=== PATIENT | female | born 1930 | race African-American/Black ===

== ENCOUNTER 2017-03-03 08:30 | Inpatient (IN) | payer MEDICARE, MEDICAID ==
[2017-03-03] MEDS ORDERED: INSULIN ASPART, RECOMBINANT 100 UNITS/ML SUBQ ONE (08:47)
[2017-03-03] MEDS ORDERED: INSULIN HUMAN REGULAR 100 UNITS/ML UNIT SUBQ ONE (08:47)
[2017-03-03] MEDS ORDERED: Levofloxacin 500mg/100mL 500 MG/100 ML BAG IV ONE ×2 (09:08→10:04)
[2017-03-03 09:18] LABS: MEAN PLATELET VOLUME 12.1 fl
[2017-03-03] MEDS ORDERED: Sodium Chloride 0.9% 1,000 ML IV ONE (09:18)
--- NOTE | 2017-03-03 09:20 | Diagnostic Imaging Report ---
Portable chest x-ray HISTORY: Cough Exam is limited due to patient rotation in a poor inspiration. Allowing for these factors, no definite focal pulmonary parenchymal processes are seen. Heart size is difficult to assess. Atherosclerotic calcification seen within the aorta. IMPRESSION: 1. Allowing for a poor inspiration and patient rotation, no definite focal pulmonary processes 2. Atherosclerotic vascular changes
[2017-03-03 09:21] VITALS: BP 113/62
[2017-03-03 09:23] LABS: EOSINOPHILE ABSOLUTE 0.8 Th/cmm (0.1-0.4); LYMPHOCYTE ABSOLUTE 0.9 Th/cmm (1.5-3.0); MEAN CELL VOLUME 89.7 fl (81-100); MEAN CORPUSCULAR HEMOGLOBIN 25.9 pg (27.0-31.0); MEAN CORPUSCULAR HGB CONC 28.9 pg (28.0-36.0); NEUTROPHILE ABSOLUTE 5.5 Th/cmm (1.8-8.0); RED BLOOD COUNT 2.31 Mil/cmm (3.80-5.20)
[2017-03-03 09:30] LABS: CHOLESTEROL 49 mg/dL (<200); HDL -HIGH DENSITY LIPOPROTEIN 17 mg/dL (23-92); TRIGLYCERIDES 134 mg/dL (<150)
[2017-03-03 09:32] LABS: ALB/GLOB RATIO 0.5 (1.0-1.8); ALBUMIN 2.7 gm/dL (3.7-5.3); BILIRUBIN,DIRECT 0.06 mg/dL (0.0-0.2); BILIRUBIN,TOTAL 0.3 mg/dL (0.3-1.0); TOTAL PROTEIN,SERUM 8.6 gm/dL (6.0-8.3)
[2017-03-03 09:33] LABS: INR 1.13 (0.5-1.4); PROTHROMBIN TIME (TEST) 11.9 SECONDS (9.5-11.5)
[2017-03-03 09:47] LABS: WHITE BLOOD COUNT 10.2 Th/cmm (4.8-10.8)
[2017-03-03 09:48] LABS: HEMATOCRIT 20.7 % (41.0-60); PLATELET COUNT 294 Th/cmm (150-400)
[2017-03-03 09:49] LABS: ANISOCYTOSIS 1+; LYMPHOCYTE 28 % (20-50); MONOCYTE 4 % (2-10); NEUTROPHILS 68 % (40-80); TOTAL CELLS COUNTED 100
[2017-03-03] MEDS ORDERED: Piperacillin Sodium/Tazobact 3.375 gm Vial IV ONE (10:04)
[2017-03-03] MEDS ORDERED: INSULIN HUMAN REGULAR 100 UNITS/ML UNIT ONE (10:05)
--- NOTE | 2017-03-03 10:43 | ER Physician Documentation ---
DATE OF SERVICE: 03/03/2017 EMERGENCY ROOM EVALUATION AND TREATMENT The patient was in station #1 [facility]. She is an 87-year-old patient. Her date of 1930. I am the ER physician on duty today morning. The patient has Medicaid #[id number], Medicare-Medicaid number is [id number], policy number [id number]. The patient's family physician is Dr. Osman Csota, office number is [phone], [address] [place] [address]. The patient has dentist and it communications specialist. I was given the information by the nurse ___. Paramedics informed that the patient was obtunded, not speaking much, said she was not responding, and not answering questions. Her blood sugar was in 600 mg percentage level. No other history is available. The Emergency run team tries to get the EKG, but only 6 leads standard in extremity leads were taken that was uninterpretable. HISTORY OF PRESENT ILLNESS: The patient is a known patient of diabetes mellitus. She lives in a fci. She is essentially bedbound. 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 The patient had no diarrhea or lethargy. She underwent many, many medical studies and further workup showed that she had a partial sigmoid volvulus, which accounted for her symptoms. She underwent colonoscopy and did not show any mass lesions and the patient has diabetes mellitus. She has G-tube placement done and she also had bacteremia. Dr. Tyler Yang know her from [facility] was treating her with Zosyn for infection. At the present time, she was brought for these conditions. The patient was evaluated by the triage nurse and the triage nurse found that the patient has the following vital signs, temperature 97.7, pulse is 104, respirations 23, blood pressure 113/62, oxygen saturation 100%. Height is 5 feet 4 inches, weighing 150 pounds. PAST MEDICAL HISTORY: Positive for Parkinson's disease, hypertension, hypertensive vascular heart disease, vascular dementia, type 2 diabetes mellitus, and contracted status. The patient does not speak. She has coronary artery disease, history of gastrostomy tube, hypothyroidism, as well as a colostomy tube, and CVAs with right hemiplegia, but she is contracted in all the extremities. FAMILY HISTORY: Unobtainable because of the patient's current mental status. REVIEW OF SYSTEMS: Could not be obtainable because of the patient's current mental status. PHYSICAL EXAMINATION: GENERAL: Appears to be lady, 87-year-old looking of the stated age, essentially well built, but poorly nourished. HEENT: Appears to be normal. Eyes appear to be normal. Pupils are equal. Sclerae is anicteric. NECK: Supple, no jugular venous distress. CHEST: Reveals fairly good air entry in both lung anteriorly. Few crackles at both the lung bases are audible. ABDOMEN: Soft, distended, not tender to palpation. The patient has a colostomy tube, G-tube. Bowel sounds are normal. The liver and spleen are not enlarged. No free fluid in the abdominal cavity HEART: Reveals normal heart sounds. No fourth heart sound. Second heart sound physiologically split. CENTRAL NERVOUS SYSTEM: Within normal limits. CLINICAL IMPRESSION: The patient has hyperglycemia with a blood sugar of 600, when our nurse took the blood sugar; it was around 385 or so. The patient was given 16 units of regular insulin and all the lab workups and chest x-ray has been ordered, EKG has been ordered, and blood cultures will be ordered. The patient diagnosis could be patient may be having sepsis infection. Lactic acid level has been ordered. So the final diagnoses clinically is, the patient has probably having sepsis, uncontrolled diabetes mellitus, coronary artery disease, Parkinson's disease, hypertension, hypertensive heart disease, vascular dementia, type 2 diabetes mellitus, history of G-tube, history of colostomy tube, cerebrovascular accident with hemiplegia, and the patient is uncommunicative at the present moment. The patient is a full code. The patient is under the care of Dr. Costa. The patient at that time in the past had leukocytosis, urinary tract infection, Parkinson's disease, etc. The patient has a history of hypothyroidism also. In the past, the patient has megacolon and volvulus that were corrected. The patient could be having dehydration at the present moment and immobility and contracted state. In the past, her BUN and creatinine had been within normal limits. She was found to be dehydrated with sodium of 152 in January of 2017. At that time, the white count was 13.1. Urine culture at that time was growing E. coli with a G-tube site showing Proteus mirabilis, Staphylococcus aureus, and Enterococcus faecalis. A CAT scan of the abdomen and pelvis from January showed megacolon. The patient also underwent a sigmoidectomy in the past as well as colostomy in the past. The patient had a history of encephalopathy in the past, osteoarthritis in the past. The patient has a history of potential for falls, so fall precautions should be taken for this patient. Because of the patient's seriousness of the nature, I would give the patient one dose of Levaquin just to cover for as the patient has any pseudomonas, but otherwise Levaquin can be discontinued if other bugs are detected, which is sensitive to Zosyn and vancomycin. The patient is getting a G-tube feeding and other things and let me see if there is any other diagnosis that I have written for this patient, the patient has other diagnoses, which includes muscle weakness, generalized, in the past the patient had urinary tract infection, atherosclerotic heart disease with [place] coronary artery disease without angina pectoris, and unspecified dysphagia was noted in this patient. This is the first part of the report, the second part will be mentioned once we get all the labs and other things, and I will dictate this report. This is dictated at 2108. JOB# [id number]
[2017-03-03 11:08] LABS: URINE MICROSCOPIC INDICATED? YES; URINE SOURCE CATH
[2017-03-03 11:17] LABS: URINE BILIRUBIN NEGATIVE (NEGATIVE); URINE BLOOD LARGE (NEGATIVE); URINE GLUCOSE (UA) 100 mg/dL (NEGATIVE); URINE KETONE NEGATIVE (NEGATIVE); URINE LEUKOCYTE ESTERASE LARGE (NEGATIVE); URINE NITRATE NEGATIVE (NEGATIVE); URINE PROTEIN 30 mg/dL (NEGATIVE); URINE UROBILINOGEN 0.2 E.U./dL (0.2 - 1.0)
[2017-03-03 11:23] LABS: ALB/GLOB RATIO 0.4 (1.0-1.8); ALBUMIN 2.6 gm/dL (3.7-5.3); ALKALINE PHOSPHATASE 117 U/L (34-104); ANION GAP 10.4 (7.0-16.0); BILIRUBIN,TOTAL 0.3 mg/dL (0.3-1.0); BUN - UREA NITROGEN 73 mg/dL (7-25); CALCIUM SERUM 9.6 mg/dL (8.6-10.3); CARBON DIOXIDE 29.9 mEq/L (21.0-31.0); CHLORIDE 122 mEq/L (98-107); CREATININE - SERUM 1.3 mg/dL (0.6-1.2); POTASSIUM SERUM 4.3 mEq/L (3.5-5.1); SGOT 39 U/L (13-39); SGPT/ALT 16 U/L (7-52); TOTAL PROTEIN,SERUM 8.6 gm/dL (6.0-8.3)
[2017-03-03 11:27] LABS: GLUCOSE 465 mg/dL (70-105); SODIUM SERUM 158 mEq/L (136-145)
[2017-03-03 11:33] LABS: URINE CLARITY CLOUDY (CLEAR); URINE COLOR YELLOW
[2017-03-03 11:38] LABS: URINE BACTERIA 3+ /hpf (NONE SEEN); URINE EPITHELIAL CELLS MODERATE /lpf (FEW); URINE YEAST MODERATE /hpf (NONE SEEN)
[2017-03-03] MEDS ORDERED: D5-0.45NS 1,000 ML IV ONE (11:40)
--- NOTE | 2017-03-03 11:41 | ER Physician Documentation ---
DATE OF SERVICE: 03/03/2017 ADDENDUM An 87-year-old female patient. I received most of the lab workup from the Emergency Room that was ordered and did speak to Dr. Costa and the patient will be admitted to telemetry floor for further workup and treatment of this patient. Dr. Costa gave the orders to the nurse in charge of this patient. The patient's lab workup was received. Let me give you the number. Protime is 11.9, which is within normal limits. INR is 1.13. Chest x-ray showing allowing for poor inspiration and patient rotation, no definite focal pulmonary disease was noted, atherosclerotic vascular changes were seen. Cholesterol was 49, triglycerides 137, HDL was 17, LDL was found to be 9. The patient's BNP level was ___, which is very high. Total protein level is 8.6, albumin level is 2.7, albumin to globulin ratio 0.5, bilirubin is 0.3, AST is 40, alkaline phosphatase is 118. White count is 10.2, hemoglobin is 6, once again hemoglobin is 6, hematocrit is 20.7. I was called in by the lab to report these numbers to see whether the patient is bleeding or anything, but the patient is not having any current acute bleeding that could be seen either from the mouth, nose, or from the rectum, or the urinary tract. Hematocrit is found to be 20.7, mean corpuscular hemoglobin concentration is 25.9, platelet count is 23. Manual differential was done, neutrophils are 68, lymphocytes 28, monocytes 4, erythrocyte is 1. Because the patient cannot sign, I did sign the consent, and the other consent form that was advised to me by the nurse was also signed. The patient will be admitted under Dr. Costa. TSH level is 4.04, which is within normal limits. Lactic acid was high. The patient has sepsis, most likely urinary tract infection plus the patient has a colostomy, so there is a chance of pouchitis and the patient may be having slow rectal bleed or any perforation. The patient may need a CT scan, etc., but I would leave it with all this workup to be done by Dr. Costa to be ordered. He ordered other workup to be done and some consultation to be done. FINAL DIAGNOSES: The patient havin. Sepsis. 2. Diabetes mellitus type 2. 3. Schizophrenia. 4. Atherosclerotic valvular heart disease. 5. Right-sided hemiplegia. 6. All other previous diagnosis that were mentioned in the patient holds true. 7. Chronic anemia. 8. Most likely urinary tract infection. 8. G-tube. 9. Colostomy with G-tube placement in her. 10. Other diagnoses, some of them old, some of them are new. 11. Cerebrovascular accident with right-sided hemiplegia is old. 12. The patient has old Parkinson's disease. 13. The patient has old hypertension and vascular dementia is old. 14. Type 2 diabetes mellitus. Q. check coverage has been ordered. 15. The patient has a gastrostomy tube, hypothyroidism, etc. EKG was done showing high left ventricular voltage, suggestion of possible old inferior wall AL, EKG tracing is not very good quality, some nonspecific anterior wall T-wave changes are seen. Her BNP level was found to be ___. The patient may need an echocardiographic study to see for any size and function of the left ventricle. Thank you again to everybody, all the staff here to help me. Thank you, Dr. Costa. We wish the patient well. Hope the patient gets better soon and go home. JOB# [id number]
[2017-03-03] MEDS ORDERED: Sodium Chloride 0.45% 1,000 ML IV ONE (11:47)
[2017-03-03] MEDS ORDERED: Pneumococcal Vaccine 0.5 mL Vial IM ONE (16:26)
--- NOTE | 2017-03-03 17:10 | General Progress Note ---
Subjective - Review of Systems Service Date: 03/03/17 Events since last encounter: 03/03/17 ischemic feet, worse on left, no palpable pedal pulses extensive stage 4 sacral DU patient does not answer to questions Plan: doppler arterial and venous studies possible amputations debridment sacral ulcers with wound vac Objective - Results Result Diagrams: 03/03/17 09:00 03/03/17 09:00 Recent Labs: Laboratory Last Values WBC 10.2 Th/cmm (4.8-10.8) D 03/03/17 09:00 RBC 2.31 Mil/cmm (3.80-5.20) L 03/03/17 09:00 Hgb 6.0 gm/dL (12-16) L* 03/03/17 09:00 Hct 20.7 % (41.0-60) L* D 03/03/17 09:00 MCV 89.7 fl (81-100) 03/03/17 09:00 MCH 25.9 pg (27.0-31.0) L 03/03/17 09:00 MCHC Differential 28.9 pg (28.0-36.0) 03/03/17 09:00 RDW 23.0 % (11.5-20.0) H 03/03/17 09:00 Plt Count 294 Th/cmm (150-400) D 03/03/17 09:00 MPV 12.1 fl 03/03/17 09:00 Neutrophils % SCREEN CUTTER AND TRIMMER 03/03/17 09:00 Lymphocytes % SCREEN CUTTER AND TRIMMER 03/03/17 09:00 Monocytes % SCREEN CUTTER AND TRIMMER 03/03/17 09:00 Eosinophils % SCREEN CUTTER AND TRIMMER 03/03/17 09:00 Neutrophils (Manual) 68 % (40-80) 03/03/17 09:00 Lymphocytes 28 % (20-50) 03/03/17 09:00 Monocytes 4 % (2-10) 03/03/17 09:00 Anisocytosis 1+ 03/03/17 09:00 PT 11.9 SECONDS (9.5-11.5) H 03/03/17 09:00 INR 1.13 (0.5-1.4) 03/03/17 09:00 PTT (Actin FS) 36.6 SECONDS (26.0-38.0) 03/03/17 09:00 Sodium 158 mEq/L (136-145) H 03/03/17 09:00 Potassium 4.3 mEq/L (3.5-5.1) 03/03/17 09:00 Chloride 122 mEq/L (98-107) H 03/03/17 09:00 Carbon Dioxide 29.9 mEq/L (21.0-31.0) 03/03/17 09:00 Anion Gap 10.4 (7.0-16.0) 03/03/17 09:00 BUN 73 mg/dL (7-25) H 03/03/17 09:00 Creatinine 1.3 mg/dL (0.6-1.2) H 03/03/17 09:00 Est GFR ( Amer) TNP 03/03/17 09:00 Est GFR (Non-Af Amer) TNP 03/03/17 09:00 BUN/Creatinine Ratio 56.2 03/03/17 09:00 Glucose 465 mg/dL (70-105) H* 03/03/17 09:00 Whole Bld Lactic Acid 2.87 mmol/L (0.60-1.99) H* 03/03/17 09:00 Calcium 9.6 mg/dL (8.6-10.3) 03/03/17 09:00 Total Bilirubin 0.3 mg/dL (0.3-1.0) 03/03/17 09:00 Direct Bilirubin 0.06 mg/dL (0.0-0.2) 03/03/17 09:00 AST 39 U/L (13-39) 03/03/17 09:00 ALT 16 U/L (7-52) 03/03/17 09:00 Alkaline Phosphatase 117 U/L (34-104) H 03/03/17 09:00 B-Natriuretic Peptide 4190.0 pg/mL (5.0-100.0) H 03/03/17 09:00 Total Protein 8.6 gm/dL (6.0-8.3) H 03/03/17 09:00 Albumin 2.6 gm/dL (3.7-5.3) L 03/03/17 09:00 Globulin 6.0 gm/dL 03/03/17 09:00 Albumin/Globulin Ratio 0.4 (1.0-1.8) L 03/03/17 09:00 Triglycerides 134 mg/dL (<150) 03/03/17 09:00 Cholesterol 49 mg/dL (<200) 03/03/17 09:00 LDL Cholesterol Direct 9 mg/dL (75-193) L 03/03/17 09:00 HDL Cholesterol 17 mg/dL (23-92) L 03/03/17 09:00 TSH 4.04 uIU/ml (0.34-5.60) 03/03/17 09:00 Urine Source CATH 03/03/17 09:59 Urine Color YELLOW 03/03/17 09:59 Urine Clarity CLOUDY (CLEAR) H 03/03/17 09:59 Urine pH 6.0 (4.6 - 8.0) 03/03/17 09:59 Ur Specific [place] 1.010 (1.005-1.030) 03/03/17 09:59 Urine Protein 30 mg/dL (NEGATIVE) H 03/03/17 09:59 Urine Glucose (UA) 100 mg/dL (NEGATIVE) H 03/03/17 09:59 Urine Ketones NEGATIVE mg/dL (NEGATIVE) 03/03/17 09:59 Urine Blood LARGE (NEGATIVE) H 03/03/17 09:59 Urine Nitrate NEGATIVE (NEGATIVE) 03/03/17 09:59 Urine Bilirubin NEGATIVE (NEGATIVE) 03/03/17 09:59 Urine Urobilinogen 0.2 E.U./dL (0.2 - 1.0) 03/03/17 09:59 Ur Leukocyte Esterase LARGE (NEGATIVE) H 03/03/17 09:59 Urine RBC 5-10 /hpf (0-5) H 03/03/17 09:59 Urine WBC 10-25 /hpf (0-5) H 03/03/17 09:59 Ur Epithelial Cells MODERATE /lpf (FEW) 03/03/17 09:59 Urine Bacteria 3+ /hpf (NONE SEEN) H 03/03/17 09:59 Urine Yeast MODERATE /hpf (NONE SEEN) H 03/03/17 09:59 Blood Type B POSITIVE 03/03/17 09:00 Antibody Screen NEGATIVE 03/03/17 09:00 Crossmatch See Detail 03/03/17 09:00 - Physical Exam Vitals and I&O: Vital Signs Temp 98.1 F 03/03/17 15:45 Pulse 98 03/03/17 15:45 Resp 18 03/03/17 15:45 BP 108/43 03/03/17 15:45 Pulse Ox 99 03/03/17 12:34 Intake & Output 03/02/17 03/03/17 03/03/17 18:59 06:59 18:59 Intake Total 1400 Balance 1400 Intake: Intake, IV Amount 1400 Levofloxacin 500mg/100mL 100 500 mg In 100 ml @ 100 mls/hr IV X1 ONE Rx#: [id number] Piperacillin Sodium/ 50 Tazobact 3.375 gm In Sodium Chloride 0.9% 50 ml @ 100 mls/hr IV X1 ONE Rx#:[id number] Sodium Chloride 0.9% 1, 1000 000 ml @ Wide Open IV . Q0M ONE Rx#:[id number] Vancomycin HCl 1 gm In 250 Sodium Chloride 0.9% 250 ml @ 165 mls/hr IV X1 ONE Rx#:[id number] Other: Stool Characteristics Soft Liquid Active Medications: Current Medications Carbidopa/Levodopa (Sinemet 25mg-100 Mg) 1 tab GT Q8HR JACKIE Stop: 05/02/17 12:59 Last Admin: 03/03/17 13:33 Dose: 1 tab Docusate Sodium (Colace) 100 mg PO BID JACKIE Stop: 05/02/17 16:59 Last Admin: 03/03/17 17:00 Dose: 100 mg Donepezil HCl (Aricept) 10 mg GT HS JACKIE Stop: 05/02/17 20:59 Sodium Chloride (Nacl 0.45%) 1,000 mls @ 50 mls/hr IV .Q20H ONE Stop: 03/04/17 07:46 Last Admin: 03/03/17 12:47 Dose: 50 mls/hr Insulin Aspart (Novolog Insulin Sliding Scale) 0 units SUBQ ACHS JACKIE PRN Reason: Protocol Stop: 05/02/17 16:29 Insulin Detemir (Levemir Insulin) 25 units SUBQ HS JACKIE PRN Reason: Protocol Stop: 05/02/17 20:59 Levetiracetam (Keppra) 500 mg PO Q8HR JACKIE Stop: 05/02/17 12:59 Last Admin: 03/03/17 13:33 Dose: 500 mg Memantine (Namenda) 10 mg GT BID JACKIE Stop: 05/02/17 16:59 Last Admin: 03/03/17 17:00 Dose: 10 mg Risperidone (Risperdal) 0.5 mg PO BID JACKIE Stop: 05/02/17 16:59 Last Admin: 03/03/17 17:00 Dose: 0.5 mg - Procedures Procedures: Procedures Procedure Code Date CHANGE GASTROSTOMY TUBE 79120 06/25/12 INJECT/INFUSE NEC 99.29 09/11/07 INSERT PICC CATH 42856 12/19/11 INSERT TUNNELED CV CATH 54436 07/08/07 OTHER ENDOSCOPY OF SM INTEST 45.13 05/05/10 PLACE NEEDLE IN VEIN 45868 07/08/07 REPLACE G/C TUBE PERC 58835 10/19/11 REPLACE GASTROSTOMY TUBE 97.02 06/25/12 TRANSABDOM ENDOSC OF SM INTES 45.11 09/11/07 VENOUS CATHETERIZATION NEC 38.93 12/19/11 VENOUS PUNCTURE NEC 38.99 07/08/07
[2017-03-03] MEDS: INSULIN ASPART SLIDING SCALE 100 UNITS/ML UNIT SUBQ SCH ×2 (17:35→22:05)
[2017-03-03 20:56] LABS: A1C % 10.2 % (4.0-6.0)
[2017-03-03] MEDS: Insulin Detemir 100 units/mL 10mL Vial SUBQ SCH (22:06)
--- NOTE | 2017-03-04 03:27 | Consultation ---
DATE OF CONSULTATION: 03/03/[address] Osman Costa. HISTORY AND PHYSICAL: This is an 87-year-old female patient, who has a G-tube, who was brought in with severe anemia, hemoglobin of 6 with possible urinary tract infection and lactic acidosis. PAST MEDICAL HISTORY: Anemia; diabetes mellitus type 2, insulin-dependent diabetes mellitus; congestive heart failure; urinary tract infection; Parkinson's disease; dementia; hypothyroidism; G-tube with dysphagia; protein-calorie malnutrition; CVA with right hemiplegia; late effect schizophrenia; sepsis; osteoporosis. FAMILY HISTORY: Unremarkable. SOCIAL HISTORY: No history of smoking or alcohol abuse. ALLERGIES: None. PHYSICAL EXAMINATION: VITAL SIGNS: Blood pressure 110/70, pulse 80, and respirations 28. HEAD: Normocephalic. No lumps or bumps. EYES: Pupils equal and reactive to light. Fundi show AV nicking, sclerae white, conjunctivae pink. NECK: Carotid 2+. Normal upstroke. JVD 10 cm above sternal angle. Thyroid not palpable. Lymph nodes not palpable. CHEST: Shows increased AP diameter. No kyphosis, scoliosis. LUNGS: Bilateral rales. Decreased breath sounds at both the bases. HEART: PMI sixth intercostal space with lateral to midclavicular line, S1, S2, S3, S4, soft systolic murmur. ABDOMEN: Soft. Liver and spleen not palpable. The patient has a G-tube, suprapubic tenderness. NEUROLOGIC: The patient has weakness in the right upper and lower extremity. EXTREMITIES: No pedal edema. CLINICAL IMPRESSION: Severe anemia, etiology unknown, the patient to get transfusion; urinary tract infection with lactic acidosis; diabetes mellitus type 2, insulin-dependent, uncontrolled; congestive heart failure; diastolic dysfunction; Parkinson's disease; dementia; hypothyroid; urinary tract infection with sepsis; G-tube with dysphagia; protein-calorie malnutrition; cerebrovascular accident with right hemiplegia; late effect schizophrenia; and osteoporosis. PLAN: Admit the patient. We will get IV fluids and Lasix, echocardiogram, and IV antibiotics. JOB# [id number]
[2017-03-04 06:36] LABS: EOSINOPHILE ABSOLUTE 0.4 Th/cmm (0.1-0.4); HEMOGLOBIN 8.3 gm/dL (12-16); LYMPHOCYTE ABSOLUTE 0.3 Th/cmm (1.5-3.0); MEAN CELL VOLUME 89.1 fl (81-100); MEAN CORPUSCULAR HEMOGLOBIN 27.8 pg (27.0-31.0); MEAN CORPUSCULAR HGB CONC 31.2 pg (28.0-36.0); MEAN PLATELET VOLUME 12.3 fl; MONOCYTE ABSOLUTE 3.2 Th/cmm (0.3-1.0); NEUTROPHILE ABSOLUTE 4.3 Th/cmm (1.8-8.0); RED CELL DISTRIBUTION WIDTH 20.6 % (11.5-20.0); WHITE BLOOD COUNT 8.2 Th/cmm (4.8-10.8)
[2017-03-04] MEDS: INSULIN ASPART SLIDING SCALE 100 UNITS/ML UNIT SUBQ SCH ×4 (06:49→21:00)
[2017-03-04 06:51] LABS: ALB/GLOB RATIO 0.5 (1.0-1.8); ALBUMIN 2.5 gm/dL (3.7-5.3); ALKALINE PHOSPHATASE 107 U/L (34-104); ANION GAP 9.5 (7.0-16.0); BILIRUBIN,TOTAL 0.3 mg/dL (0.3-1.0); BUN - UREA NITROGEN 59 mg/dL (7-25); CALCIUM SERUM 9.4 mg/dL (8.6-10.3); CARBON DIOXIDE 30.4 mEq/L (21.0-31.0); CHLORIDE 123 mEq/L (98-107); CREATININE - SERUM 1.1 mg/dL (0.6-1.2); POTASSIUM SERUM 3.9 mEq/L (3.5-5.1); SGOT 31 U/L (13-39); SGPT/ALT 13 U/L (7-52)
[2017-03-04 06:53] LABS: HEMATOCRIT 26.7 % (41.0-60); PLATELET COUNT 218 Th/cmm (150-400)
[2017-03-04 07:08] LABS: SODIUM SERUM 159 mEq/L (136-145)
[2017-03-04 07:43] LABS: TOTAL CELLS COUNTED 100
[2017-03-04 07:44] LABS: ANISOCYTOSIS 1+; BAND NEUTROPHILE 8 % (0-10); EOSINOPHIL 3 % (0-5); LYMPHOCYTE 17 % (20-50); MONOCYTE 3 % (2-10); NEUTROPHILS 68 % (40-80)
[2017-03-04 08:12] LABS: IRON LC 33 ug/dL (27-139); TIBC (LC) 170 ug/dL (250-450); UIBC 137 ug/dL (118-369)
[2017-03-04] MEDS: Multivitamin w/ Minerals Tab GT SCH (08:38)
--- NOTE | 2017-03-04 08:53 | History and Physical ---
History of Present Illness - HPI Chief Complaint: AMS HPI: 87 y/o female who was transferred to [facility] ER for AMS and possible sepsis vs urosepsis. Patient was initially evaluated in the ER. Labwork done. WBC 10.2 H/H 6.0/20.7 Plat 294K Na 158 K 4.3 Bun/Cr 73/1.3 BNP 4190 CRP 33.4 UA leukocyte large RBC's 5-10 WBC 10-25 CXR --> see dictated report Patient has a history of DM type 2, schizophrenia,CVA w/ right sided hemipreglia , chronic anemia, s/p colostomy, parkinson's disease,hypothyroidism, vascular dementia, dysphagia,CHF, CAD, UTI Patient was subsequently admitted for further evaluation and treatment. Vital Signs: Last Vital Signs Temp 98.8 F 03/04/17 04:00 Pulse 80 03/04/17 04:00 Resp 18 03/04/17 04:32 BP 102/56 03/04/17 04:00 Pulse Ox 100 03/04/17 04:00 Past Medical History Cardiovascular: Report: CAD, CHF, HTN Pulmonary: Report: No Pertinent Hx FREIGHT AGENT: Report: CVA (r sided hemiplegia) GI: Report: Other (s/p colostomy s/p Gtube placement. dysphagia) Psych: Report: Depression, Schizophrenia Musculoskeletal: Report: Weakness Rheumatologic: Report: No pertinent Hx Infectious Disease: Report: Other (hx uti,) Renal/: Report: Chronic Renal Insuff Endocrine: Report: Diabetes, Hypothyroidism Dermatology: Report: No Pertinent Hx - Past Surgical History Past Surgical History: Other (gtube placement,) Social History Smoke: No Alcohol: None Drugs: None Lives: [facility] - Medications Home Medications: Home Medication Medication Instructions Recorded Type Carbidopa/Levodopa 25/100 mg 1 tab GT Q8H 03/19/12 History [Sinemet 25-100 mg Tab] Docusate Sodium [Dss] 100 mg GT BID 03/19/12 History Donepezil Hydrochloride 10 mg GT HS 03/19/12 History Glipizide 5 mg GT BID 03/19/12 History Levetiracetam [Keppra] 500 mg GT Q8H 03/19/12 History Levothyroxine Sodium 50 mcg GT QAM 03/19/12 History Memantine HCl [Namenda] 10 mg GT BID 03/19/12 History Multivitamin & Multimineral 5 mg GT DAILY 03/19/12 History Polyethylene Glycol 3350 [Miralax] 17 gm GT DAILY 03/19/12 History Regular Insulin Sq Per Sliding SUBCUT QAM PRN 03/19/12 History Scale Risperidone [Risperdal] 0.5 mg PO BID 03/19/12 History Bactroban TOP BID 06/25/12 History Amino Acids/Protein Hydrolys 30 ml GT DAILY 03/03/17 History [Pro-Stat Sugar Free Liquid] Ascorbic Acid [Vitamin C] 500 mg GT DAILY 03/03/17 History Insulin Detemir [Levemir Insulin] 25 units SUBQ HS 03/03/17 History - Allergies Allergies/Adverse Reactions: Allergies Allergy/AdvReac Type Severity Reaction Status Date / Time No Known Allergies Allergy Verified 03/03/17 11:21 Review of Systems - Review of Systems Review of Systems: unable to obtain due to patient's condition Constitutional: Report: Weakness, Malaise Eyes: Report: No Significant ENT: Report: No Significant Respiratory: Report: No Significant Cardiovascular: Report: No Significant Gastrointestinal: Report: No Significant Genitourinary: Report: No Significant Musculoskeletal: Report: No Significant Skin: Report: No Significant Neurological: Report: No Significant Physical Exam - Physical Exam Neck: Report: Within normal limits Cardiovascular Systems: Report: Regular, Rate and Rhythm Respiratory: Report: Other (decreased breath sounds) Abdomen: Report: Non-tender to palpation, Other (gtube noted) Back: Report: Inspection of back is within normal limits. - Lab Results All Lab Results last 24 hours: Laboratory Results - last 24 hr 03/03/17 03/03/17 03/04/17 16:59 21:55 05:35 WBC 8.2 RBC 3.00 L Hgb 8.3 L Hct 26.7 L D MCV 89.1 MCH 27.8 MCHC Differential 31.2 RDW 20.6 H Plt Count 218 D MPV 12.3 Band Neutrophils % 8 Neutrophils (Manual) 68 Lymphocytes 17 L Monocytes 3 Eosinophils 3 Nucleated RBCs 1.0 H Anisocytosis 1+ Sodium Potassium Chloride Carbon Dioxide Anion Gap BUN Creatinine Est GFR ( Amer) Est GFR (Non-Af Amer) BUN/Creatinine Ratio POC Glucose 291 H 257 H Calcium Total Bilirubin AST ALT Alkaline Phosphatase Total Protein Albumin Globulin Albumin/Globulin Ratio 03/04/17 03/04/17 05:35 05:42 WBC RBC Hgb Hct MCV MCH MCHC Differential RDW Plt Count MPV Band Neutrophils % Neutrophils (Manual) Lymphocytes Monocytes Eosinophils Nucleated RBCs Anisocytosis Sodium 159 H* Potassium 3.9 Chloride 123 H Carbon Dioxide 30.4 Anion Gap 9.5 BUN 59 H Creatinine 1.1 Est GFR ( Amer) TNP Est GFR (Non-Af Amer) TNP BUN/Creatinine Ratio 53.6 POC Glucose 245 H Calcium 9.4 Total Bilirubin 0.3 AST 31 ALT 13 Alkaline Phosphatase 107 H Total Protein 8.0 Albumin 2.5 L Globulin 5.5 Albumin/Globulin Ratio 0.5 L - Assessment Assessment: sepsis vs urosepsis acute on chronic anemia diabetes mellitus type 2 schizophrenia CVA w/ right sided hemiplegia h/o UTI s/p colostomy parkinson's disease hypothyroidism vascular dementia dysphagia CHF CAD - Plan Plan: see orders
[2017-03-04] MEDS ORDERED: Multivitamin w/ Minerals Tab GT SCH (09:00)
[2017-03-04 09:31] LABS: GLUCOSE 296 mg/dL (70-105)
[2017-03-04] MEDS: Dextrose 5% 1,000 ML IV SCH (09:39)
[2017-03-04] MEDS: Levofloxacin 500mg/100mL 500 MG/100 ML BAG IV SCH (09:55)
--- NOTE | 2017-03-04 11:28 | Diagnostic Imaging Report ---
Abdominal series (2 views) HISTORY: Pain There is a nonspecific gas pattern of nondilated bowel. Balloon-tip catheter projects over the stomach. No free intraperitoneal air is seen. Multiple calcifications noted over the pelvis. These are unchanged dating back to prior study of March, may be associated with uterine fibroids. IMPRESSION: 1. Nonspecific bowel gas pattern with no acute radiographic abnormalities.
--- NOTE | 2017-03-04 12:04 | Consultation ---
Consult Note - Consult Note Service Date: 03/04/17 Referring Physician: Boris Costa Consult Note: PHYSICIAN Consultation Note: Date of Admission: 03/03/17 Purpose of Consultation: UTI. Chief Complaint: Patient MITALI ISAACS was admitted to [facility]etry with UROSEPSIS, DEHYDRATION. History of Present Illness: 87 year old female with history of DM2, HTN, CVA, nonhealing sacral stage 4 decubitus ulcer brought for UTi and sepsis. Patient is unable to give any hsitopry, so history was taken from the chart. On initial evalaution, she was afebrile and her WBC Count was 10,000. Urine showed UTI, ID cosnult was called for antibiotic management. Past Medical History: DM type 2, schizophrenia,CVA w/ right sided hemipreglia, chronic anemia, s/p colostomy, parkinson's disease,hypothyroidism, vascular dementia, dysphagia,CHF, CAD, UTI Allergies Allergy/AdvReac Type Severity Reaction Status Date / Time No Known Allergies Allergy Verified 03/03/17 11:21 Vital Signs Temp 97 F 03/04/17 08:00 Pulse 89 03/04/17 08:00 Resp 18 03/04/17 08:00 BP 106/56 03/04/17 08:00 Pulse Ox 100 03/04/17 08:00 Intake & Output 03/03/17 03/04/17 03/04/17 18:59 06:59 18:59 Intake Total 1400 7250 0 Output Total 2200 Balance 1400 5050 0 Weight (lbs) 68.039 kg 68.039 kg Intake: Intake, IV Amount 1400 Levofloxacin 500mg/100mL 100 500 mg In 100 ml @ 100 mls/hr IV X1 ONE Rx#: [id number] Piperacillin Sodium/ 50 Tazobact 3.375 gm In Sodium Chloride 0.9% 50 ml @ 100 mls/hr IV X1 ONE Rx#:[id number] Sodium Chloride 0.9% 1, 1000 000 ml @ Wide Open IV . Q0M ONE Rx#:[id number] Vancomycin HCl 1 gm In 250 Sodium Chloride 0.9% 250 ml @ 165 mls/hr IV X1 ONE Rx#:[id number] Oral 0 0 Tube Feeding 6750 Blood Product 500 Output: Urine 1900 Other 300 Other: # Bowel Movements 1 Stool Characteristics Soft Soft Liquid Formed Laboratory Results - last 24 hr 03/03/17 03/03/17 03/04/17 16:59 21:55 05:35 WBC 8.2 RBC 3.00 L Hgb 8.3 L Hct 26.7 L D MCV 89.1 MCH 27.8 MCHC Differential 31.2 RDW 20.6 H Plt Count 218 D MPV 12.3 Band Neutrophils % 8 Neutrophils (Manual) 68 Lymphocytes 17 L Monocytes 3 Eosinophils 3 Nucleated RBCs 1.0 H Anisocytosis 1+ Sodium Potassium Chloride Carbon Dioxide Anion Gap BUN Creatinine Est GFR ( Amer) Est GFR (Non-Af Amer) BUN/Creatinine Ratio Glucose POC Glucose 291 H 257 H Calcium Total Bilirubin AST ALT Alkaline Phosphatase Total Protein Albumin Globulin Albumin/Globulin Ratio Stool Occult Blood 03/04/17 03/04/17 03/04/17 05:35 05:42 09:30 WBC RBC Hgb Hct MCV MCH MCHC Differential RDW Plt Count MPV Band Neutrophils % Neutrophils (Manual) Lymphocytes Monocytes Eosinophils Nucleated RBCs Anisocytosis Sodium 159 H* Potassium 3.9 Chloride 123 H Carbon Dioxide 30.4 Anion Gap 9.5 BUN 59 H Creatinine 1.1 Est GFR ( Amer) TNP Est GFR (Non-Af Amer) TNP BUN/Creatinine Ratio 53.6 Glucose 296 H D POC Glucose 245 H Calcium 9.4 Total Bilirubin 0.3 AST 31 ALT 13 Alkaline Phosphatase 107 H Total Protein 8.0 Albumin 2.5 L Globulin 5.5 Albumin/Globulin Ratio 0.5 L Stool Occult Blood NEGATIVE 03/04/17 11:15 WBC RBC Hgb Hct MCV MCH MCHC Differential RDW Plt Count MPV Band Neutrophils % Neutrophils (Manual) Lymphocytes Monocytes Eosinophils Nucleated RBCs Anisocytosis Sodium Potassium Chloride Carbon Dioxide Anion Gap BUN Creatinine Est GFR ( Amer) Est GFR (Non-Af Amer) BUN/Creatinine Ratio Glucose POC Glucose 305 H Calcium Total Bilirubin AST ALT Alkaline Phosphatase Total Protein Albumin Globulin Albumin/Globulin Ratio Stool Occult Blood Home Medication Medication Instructions Recorded Type Carbidopa/Levodopa 25/100 mg 1 tab GT Q8H 03/19/12 History [Sinemet 25-100 mg Tab] Docusate Sodium [Dss] 100 mg GT BID 03/19/12 History Donepezil Hydrochloride 10 mg GT HS 03/19/12 History Glipizide 5 mg GT BID 03/19/12 History Levetiracetam [Keppra] 500 mg GT Q8H 03/19/12 History Levothyroxine Sodium 50 mcg GT QAM 03/19/12 History Memantine HCl [Namenda] 10 mg GT BID 03/19/12 History Multivitamin & Multimineral 5 mg GT DAILY 03/19/12 History Polyethylene Glycol 3350 [Miralax] 17 gm GT DAILY 03/19/12 History Regular Insulin Sq Per Sliding SUBCUT QAM PRN 03/19/12 History Scale Risperidone [Risperdal] 0.5 mg PO BID 03/19/12 History Bactroban TOP BID 06/25/12 History Amino Acids/Protein Hydrolys 30 ml GT DAILY 03/03/17 History [Pro-Stat Sugar Free Liquid] Ascorbic Acid [Vitamin C] 500 mg GT DAILY 03/03/17 History Insulin Detemir [Levemir Insulin] 25 units SUBQ HS 03/03/17 History Current Medications Generic Name Dose Route Start Last Admin Trade Name Freq PRN Reason Stop Dose Admin Carbidopa/Levodopa 1 tab 03/03/17 13:00 03/04/17 04:45 Sinemet 25mg-100 Mg GT 05/02/17 12:59 1 tab Q8HR JACKIE Administration Docusate Sodium 100 mg 03/03/17 17:00 03/04/17 08:32 Colace PO 05/02/17 16:59 100 mg BID JACKIE Administration Donepezil HCl 10 mg 03/03/17 21:00 03/03/17 22:04 Aricept GT 05/02/17 20:59 10 mg HS JACKIE Administration Ferrous Sulfate 325 mg 03/04/17 17:00 Iron PO 05/03/17 16:59 BID JACKIE Heparin Sodium (Porcine) 5,000 units 03/03/17 21:00 03/04/17 08:33 Heparin SUBQ 05/02/17 20:59 5,000 units Q12HR JACKIE Administration Dextrose 1,000 mls @ 50 mls/hr 03/04/17 08:30 03/04/17 09:39 D5w IV 05/03/17 08:29 50 mls/hr .Q20H JACKIE Administration Levofloxacin 500 mg in 100 mls @ 100 mls/hr 03/04/17 11:00 03/04/17 09:55 Levaquin Pb IV 05/03/17 10:59 100 mls/hr Q24H JACKIE Administration Piperacillin Sod/Tazobactam 50 mls @ 100 mls/hr 03/04/17 12:00 Sod 3.375 gm/ Sodium Chloride IV 05/03/17 11:59 Q6HR JACKIE Vancomycin HCl 1 gm/ Sodium 250 mls @ 165 mls/hr 03/04/17 13:00 Chloride IV 05/03/17 12:59 Q24H JACKIE Insulin Aspart 0 units 03/04/17 11:30 03/04/17 11:34 Novolog Insulin Sliding Scale SUBQ 05/03/17 11:29 8 units ACHS JACKIE Administration Protocol Insulin Detemir 25 units 03/03/17 21:00 03/03/17 22:06 Levemir Insulin SUBQ 05/02/17 20:59 Not Given HS [facility] Protocol Levetiracetam 500 mg 03/03/17 13:00 03/04/17 04:45 Keppra PO 05/02/17 12:59 500 mg Q8HR JACKIE Administration Memantine 10 mg 03/03/17 17:00 03/04/17 08:31 Namenda GT 05/02/17 16:59 10 mg BID JACKIE Administration Miscellaneous 1 ea 03/04/17 08:31 Vancomycin Iv Per Pharmacy [facility] 05/03/17 08:30 PRN PRN PROTOCOL Pantoprazole Sodium 40 mg 03/05/17 10:00 Protonix IVP 05/04/17 09:59 DAILY JACKIE Risperidone 0.5 mg 03/03/17 17:00 03/04/17 08:31 Risperdal PO 05/02/17 16:59 0.5 mg BID JACKIE Administration Review of Systems: A 12 point ROS was reviewed with the pertinent positive and negatives noted in the HPI. Social History Smoking Status Unknown if ever smoked Physical Exam: General: Comfortable, not in distress, HEENT: Head normocephalci atraumatic. oral cavilty moist, pink tongue. eyes: pallor present. Neck: supple, no JVD, no carotid bruit. Cardio: S1 and S2 wnk, Respiratory: CTAP. Abdominal: Soft NT distended. G tube ok, Colostomy in LLQ. Genital/Urinary: Extremities: NCCE Neurological: Alert awake. right sided paralysis. Assessment: 1. UTI. 2. Multiple wounds, sacral decubitus. r/o oteomyelitis. 3. CVA. 4. DM2. 5. HTN. 6. Colostomy. Plan: will continue vanco IV and Zosyn. 3 P Bone scan. wound care. Signed, Regan Garcia M.D. 203
--- NOTE | 2017-03-04 14:18 | Cardiology ---
03/03/2017 ECHOCARDIOGRAM REPORT A patient of Dr. Osman Costa. M-MODE ECHOCARDIOGRAM: Mitral valve, anterior leaflet of mitral valve shows normal excursion, EF velocity. Posterior leaflet of mitral valve shows normal excursion. Left ventricular posterior wall shows increased thickness, normal excursion. Interventricular septum shows increased thickness, normal excursion. Hypertrophy of the left ventricle, ejection fraction 55%. Left atrium normal. Aortic root shows normal dimension, normal excursion of aortic leaflets. CONCLUSION: Hypertrophy of the left ventricle, ejection fraction 55%. 2D ECHO: Long axis view showed normal sized left ventricle with hypertrophy of the left ventricle. Left atrium normal. Aortic root shows normal dimension, normal excursion of aortic leaflets. Short axis view of mitral valve normal. Short axis view of aortic valve normal. Apical four chamber view showed normal sized left ventricle with hypertrophy of the left ventricle. Left atrium normal. Right ventricular cavity, right atrium normal, no pericardial effusion. CONCLUSION: Hypertrophy of the left ventricle, ejection fraction 55%. Doppler study shows mild tricuspid regurgitation, prominent A wave consistent with poor compliance of left ventricle. Right ventricular systolic pressure 36 mmHg. [facility]# [id number]
[2017-03-04] MEDS: Ferrous Sulfate 325 MG TAB PO SCH (16:32)
--- NOTE | 2017-03-04 16:38 | General Progress Note ---
Subjective - Review of Systems Service Date: 03/04/17 Events since last encounter: bone scan ordered doppler arterial study ordered Objective - Results Result Diagrams: 03/04/17 05:35 03/04/17 05:35 Recent Labs: Laboratory Last Values WBC 8.2 Th/cmm (4.8-10.8) 03/04/17 05:35 RBC 3.00 Mil/cmm (3.80-5.20) L 03/04/17 05:35 Hgb 8.3 gm/dL (12-16) L 03/04/17 05:35 Hct 26.7 % (41.0-60) L D 03/04/17 05:35 MCV 89.1 fl (81-100) 03/04/17 05:35 MCH 27.8 pg (27.0-31.0) 03/04/17 05:35 MCHC Differential 31.2 pg (28.0-36.0) 03/04/17 05:35 RDW 20.6 % (11.5-20.0) H 03/04/17 05:35 Plt Count 218 Th/cmm (150-400) D 03/04/17 05:35 MPV 12.3 fl 03/04/17 05:35 Neutrophils % TRAP OPERATOR 03/03/17 09:00 Band Neutrophils % 8 % (0-10) 03/04/17 05:35 Lymphocytes % TRAP OPERATOR 03/03/17 09:00 Monocytes % TRAP OPERATOR 03/03/17 09:00 Eosinophils % TRAP OPERATOR 03/03/17 09:00 Neutrophils (Manual) 68 % (40-80) 03/04/17 05:35 Lymphocytes 17 % (20-50) L 03/04/17 05:35 Monocytes 3 % (2-10) 03/04/17 05:35 Eosinophils 3 % (0-5) 03/04/17 05:35 Nucleated RBCs 1.0 % (0-0) H 03/04/17 05:35 Anisocytosis 1+ 03/04/17 05:35 PT 11.9 SECONDS (9.5-11.5) H 03/03/17 09:00 INR 1.13 (0.5-1.4) 03/03/17 09:00 PTT (Actin FS) 36.6 SECONDS (26.0-38.0) 03/03/17 09:00 Sodium 159 mEq/L (136-145) H* 03/04/17 05:35 Potassium 3.9 mEq/L (3.5-5.1) 03/04/17 05:35 Chloride 123 mEq/L (98-107) H 03/04/17 05:35 Carbon Dioxide 30.4 mEq/L (21.0-31.0) 03/04/17 05:35 Anion Gap 9.5 (7.0-16.0) 03/04/17 05:35 BUN 59 mg/dL (7-25) H 03/04/17 05:35 Creatinine 1.1 mg/dL (0.6-1.2) 03/04/17 05:35 Est GFR ( Amer) TNP 03/04/17 05:35 Est GFR (Non-Af Amer) TNP 03/04/17 05:35 BUN/Creatinine Ratio 53.6 03/04/17 05:35 Glucose 296 mg/dL (70-105) H D 03/04/17 05:35 POC Glucose 305 MG/DL (70 - 105) H 03/04/17 11:15 Hemoglobin A1c % 10.2 % (4.0-6.0) H 03/03/17 09:00 Whole Bld Lactic Acid 2.20 mmol/L (0.60-1.99) H* 03/04/17 13:00 Calcium 9.4 mg/dL (8.6-10.3) 03/04/17 05:35 Iron 33 ug/dL (27-139) 03/03/17 09:00 TIBC 170 ug/dL (250-450) L 03/03/17 09:00 Iron Saturation 19 % (15-55) 03/03/17 09:00 Unsaturated IBC 137 ug/dL (118-369) 03/03/17 09:00 Total Bilirubin 0.3 mg/dL (0.3-1.0) 03/04/17 05:35 Direct Bilirubin 0.06 mg/dL (0.0-0.2) 03/03/17 09:00 AST 31 U/L (13-39) 03/04/17 05:35 ALT 13 U/L (7-52) 03/04/17 05:35 Alkaline Phosphatase 107 U/L (34-104) H 03/04/17 05:35 C-Reactive Protein 33.4 mg/dL (0.0-0.9) H 03/03/17 09:00 B-Natriuretic Peptide 4190.0 pg/mL (5.0-100.0) H 03/03/17 09:00 Total Protein 8.0 gm/dL (6.0-8.3) 03/04/17 05:35 Albumin 2.5 gm/dL (3.7-5.3) L 03/04/17 05:35 Globulin 5.5 gm/dL 03/04/17 05:35 Albumin/Globulin Ratio 0.5 (1.0-1.8) L 03/04/17 05:35 Triglycerides 134 mg/dL (<150) 03/03/17 09:00 Cholesterol 49 mg/dL (<200) 03/03/17 09:00 LDL Cholesterol Direct 9 mg/dL (75-193) L 03/03/17 09:00 HDL Cholesterol 17 mg/dL (23-92) L 03/03/17 09:00 TSH 4.04 uIU/ml (0.34-5.60) 03/03/17 09:00 Urine Source CATH 03/03/17 09:59 Urine Color YELLOW 03/03/17 09:59 Urine Clarity CLOUDY (CLEAR) H 03/03/17 09:59 Urine pH 6.0 (4.6 - 8.0) 03/03/17 09:59 Ur Specific Henriette 1.010 (1.005-1.030) 03/03/17 09:59 Urine Protein 30 mg/dL (NEGATIVE) H 03/03/17 09:59 Urine Glucose (UA) 100 mg/dL (NEGATIVE) H 03/03/17 09:59 Urine Ketones NEGATIVE mg/dL (NEGATIVE) 03/03/17 09:59 Urine Blood LARGE (NEGATIVE) H 03/03/17 09:59 Urine Nitrate NEGATIVE (NEGATIVE) 03/03/17 09:59 Urine Bilirubin NEGATIVE (NEGATIVE) 03/03/17 09:59 Urine Urobilinogen 0.2 E.U./dL (0.2 - 1.0) 03/03/17 09:59 Ur Leukocyte Esterase LARGE (NEGATIVE) H 03/03/17 09:59 Urine RBC 5-10 /hpf (0-5) H 03/03/17 09:59 Urine WBC 10-25 /hpf (0-5) H 03/03/17 09:59 Ur Epithelial Cells MODERATE /lpf (FEW) 03/03/17 09:59 Urine Bacteria 3+ /hpf (NONE SEEN) H 03/03/17 09:59 Urine Yeast MODERATE /hpf (NONE SEEN) H 03/03/17 09:59 Stool Occult Blood NEGATIVE (NEGATIVE) 03/04/17 09:30 Blood Type B POSITIVE 03/03/17 09:00 Antibody Screen NEGATIVE 03/03/17 09:00 Crossmatch See Detail 03/03/17 09:00 - Physical Exam Vitals and I&O: Vital Signs Temp 97 F 03/04/17 16:00 Pulse 89 03/04/17 16:00 Resp 18 03/04/17 16:00 BP 106/56 03/04/17 16:00 Pulse Ox 100 03/04/17 16:00 Intake & Output 03/03/17 03/04/17 03/04/17 18:59 06:59 18:59 Intake Total 1400 7250 150 Output Total 2200 Balance 1400 5050 150 Weight (lbs) 68.039 kg 68.039 kg Intake: Intake, IV Amount 1400 150 Levofloxacin 500mg/100mL 100 500 mg In 100 ml @ 100 mls/hr IV Q24H [facility] Rx#: [id number] Levofloxacin 500mg/100mL 100 500 mg In 100 ml @ 100 mls/hr IV X1 ONE Rx#: [id number] Piperacillin Sodium/ 50 Tazobact 3.375 gm In Sodium Chloride 0.9% 50 ml @ 100 mls/hr IV Q6HR [facility] Rx#:[id number] Piperacillin Sodium/ 50 Tazobact 3.375 gm In Sodium Chloride 0.9% 50 ml @ 100 mls/hr IV X1 ONE Rx#:[id number] Sodium Chloride 0.9% 1, 1000 000 ml @ Wide Open IV . Q0M ONE Rx#:[id number] Vancomycin HCl 1 gm In 250 Sodium Chloride 0.9% 250 ml @ 165 mls/hr IV X1 ONE Rx#:[id number] Oral 0 0 Tube Feeding 6750 Blood Product 500 Output: Urine 1900 Other 300 Other: # Bowel Movements 1 Stool Characteristics Soft Soft Soft Liquid Formed Formed Active Medications: Current Medications Carbidopa/Levodopa (Sinemet 25mg-100 Mg) 1 tab GT Q8HR [facility] Stop: 05/02/17 12:59 Last Admin: 03/04/17 12:48 Dose: 1 tab Docusate Sodium (Colace) 100 mg PO BID JACKIE Stop: 05/02/17 16:59 Last Admin: 03/04/17 16:32 Dose: 100 mg Donepezil HCl (Aricept) 10 mg GT HS JACKIE Stop: 05/02/17 20:59 Last Admin: 03/03/17 22:04 Dose: 10 mg Ferrous Sulfate (Iron) 325 mg PO BID JACKIE Stop: 05/03/17 16:59 Last Admin: 03/04/17 16:32 Dose: 325 mg Heparin Sodium (Porcine) (Heparin) 5,000 units SUBQ Q12HR JACKIE Stop: 05/02/17 20:59 Last Admin: 03/04/17 08:33 Dose: 5,000 units Dextrose (D5w) 1,000 mls @ 50 mls/hr IV .Q20H [facility] Stop: 05/03/17 08:29 Last Admin: 03/04/17 09:39 Dose: 50 mls/hr Levofloxacin (Levaquin Pb) 500 mg in 100 mls @ 100 mls/hr IV Q24H [facility] Stop: 05/03/17 10:59 Last Infusion: 03/04/17 11:00 Dose: Infused Piperacillin Sod/Tazobactam (Sod 3.375 gm/ Sodium Chloride) 50 mls @ 100 mls/ hr IV Q6HR [facility] Stop: 05/03/17 11:59 Last Infusion: 03/04/17 13:00 Dose: Infused Vancomycin HCl 1 gm/ Sodium (Chloride) 250 mls @ 165 mls/hr IV Q24H [facility] Stop: 05/03/17 12:59 Last Admin: 03/04/17 14:00 Dose: 165 mls/hr Insulin Aspart (Novolog Insulin Sliding Scale) 0 units SUBQ ACHS JACKIE PRN Reason: Protocol Stop: 05/03/17 11:29 Last Admin: 03/04/17 11:34 Dose: 8 units Insulin Detemir (Levemir Insulin) 25 units SUBQ HS JACKIE PRN Reason: Protocol Stop: 05/02/17 20:59 Last Admin: 03/03/17 22:06 Dose: Not Given Levetiracetam (Keppra) 500 mg PO Q8HR [facility] Stop: 05/02/17 12:59 Last Admin: 03/04/17 12:18 Dose: 500 mg Memantine (Namenda) 10 mg GT BID JACKIE Stop: 05/02/17 16:59 Last Admin: 03/04/17 16:33 Dose: 10 mg Miscellaneous (Vancomycin Iv Per Pharmacy) 1 ea PRN PRN PRN Reason: PROTOCOL Stop: 05/03/17 08:30 Pantoprazole Sodium (Protonix) 40 mg IVP DAILY JACKIE Stop: 05/04/17 09:59 Risperidone (Risperdal) 0.5 mg PO BID JACKIE Stop: 05/02/17 16:59 Last Admin: 03/04/17 16:33 Dose: 0.5 mg - Procedures Procedures: Procedures Procedure Code Date CHANGE GASTROSTOMY TUBE 69549 06/25/12 INJECT/INFUSE NEC 99.29 09/11/07 INSERT PICC CATH 90258 12/19/11 INSERT TUNNELED CV CATH 30688 07/08/07 OTHER ENDOSCOPY OF SM INTEST 45.13 05/05/10 PLACE NEEDLE IN VEIN 18223 07/08/07 REPLACE G/C TUBE PERC 24161 10/19/11 REPLACE GASTROSTOMY TUBE 97.02 06/25/12 TRANSABDOM ENDOSC OF SM INTES 45.11 09/11/07 VENOUS CATHETERIZATION NEC 38.93 12/19/11 VENOUS PUNCTURE NEC 38.99 07/08/07
[2017-03-04] MEDS: Insulin Detemir 100 units/mL 10mL Vial SUBQ SCH (21:00)
--- NOTE | 2017-03-05 00:44 | Consultation ---
DATE OF CONSULTATION: 03/04/2017 INPATIENT GI CONSULTATION REASON FOR CONSULTATION: Anemia. CONSULTING PHYSICIAN: Boris Costa D.O. HISTORY OF PRESENT ILLNESS: The patient is an 87-year-old female who is a permanent resident of a nursing facility, who was brought into the Emergency Room for possible sepsis. The patient has past medical history significant for type 2 diabetes, schizophrenia, previous stroke with hemiplegia, chronic anemia with a colostomy, coronary artery disease, congestive heart failure and vascular dementia. At the current time, the patient is unable to participate in the history and most history is obtained from the chart. The history is unclear if the patient has had an acute worsening in the mental status, although it seems that the patient was transferred to the Emergency Room for low hemoglobin level. 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 At the current time, her colostomy bag has green colored stool in it and there is no history of any overt GI bleeding or hematemesis. She has been started on broad spectrum antibiotics. PAST MEDICAL HISTORY: Type 2 diabetes, schizophrenia, previous stroke, chronic anemia, colostomy placement, Parkinson's disease, hypothyroidism, vascular dementia, dysphagia, congestive heart failure, coronary artery disease, and urinary tract infection. PAST SURGICAL HISTORY: Colostomy placement for what appears to be sigmoid volvulus in January 2017, G-tube placement. FAMILY HISTORY: Noncontributory. SOCIAL HISTORY: There is no documented history of alcoholism or illicit drug use, although the patient is a permanent resident of a nursing facility. ALLERGIES: No known drug allergies are listed. REVIEW OF SYSTEMS: Not possible given the patient's reduced mental status. CURRENT MEDICATIONS: Include carbidopa levodopa, docusate, Aricept, heparin subQ, insulin, Keppra, levofloxacin, Namenda, vancomycin, Protonix, Zosyn, and Risperdal. PHYSICAL EXAMINATION: VITAL SIGNS: Blood pressure is 106/56, pulse of 89 beats per minute, temperature 97, oxygenation 100%. GENERAL: The patient is lying in supine position at 30 degrees. She is alert and oriented x 0, no apparent distress. HEAD, EYES, EARS, NOSE AND THROAT: Normocephalic. Atraumatic appearing head. Pupils are equal and reactive. Extraocular muscles appear to be intact. Moist mucous membranes. NECK: Supple. There is no obvious JVD or thyromegaly. CHEST: Crackles at both bases. CARDIOVASCULAR: S1, S2 present. Regular rate and rhythm. ABDOMEN: Obese, soft to palpation. There is a colostomy bag in the left lower quadrant with green stool within the bag. No guarding or rebound. EXTREMITIES: Pitting edema is noted bilaterally. Pulses are not palpable. SKIN: No obvious jaundice. There is sacral decubitus ulceration. LABORATORY DATA: White blood cell count 8.2, hemoglobin 8.3, although on admission, this was 6.0, platelet count is 218. INR 1.1, BUN 59, creatinine 1.1. AST 39, ALT 16. C-reactive protein 33. Urinalysis shows a large amount of blood. No abdominal imaging has been performed. IMPRESSION: This is an 87-year-old female with multiple medical problems including previous stroke, schizophrenia, dysphagia with G-tube and previous sigmoid volvulus with colostomy placement in January 2017 who was admitted to the hospital with signs of sepsis and possible anemia. 1. Anemia. 2. Previous stroke with dysphagia and G-tube dependence. 3. Sigmoid volvulus with colostomy placement in January 2017 at [facility]. 4. Schizophrenia. 5. Congestive heart failure. 6. Coronary artery disease. 7. Sepsis. DISCUSSION: At the current time, there does not appear to be a GI bleed given there is green stool in the colostomy bag and patient has not had any vomiting. She had a recent surgery less than 2 months ago as per the chart in the sigmoid area and could be at risk for anastomosis related bleeding, although I would have expected to see hematochezia in this instance. Her anemia may be related to multifactorial causes such as nutritional deficiency or even sepsis or chronic illness. At this point, given her risk profile and age, I would be hesitant to perform any endoscopic examinations without any sign of overt GI bleeding, rather we can make sure the patient is receiving appropriate iron supplementation and tract her hemoglobin. She responded well to 2 units of blood yesterday and has had an appropriate hemoglobin response. RECOMMENDATIONS: 1. We will track the hemoglobin and transfuse to keep hemoglobin above 7. 2. If there is sign of overt GI bleeding, then we will consider colonoscopy and upper endoscopy depending on the source of the bleed; however, the current time, there is likely more risk than benefit of having a repeat exam, especially since the patient had one in January 2017 by history. 3. Continue G-tube feeding. 4. Iron supplementation. 5. Treatment of the patient's sepsis as per the other consultants. Thank you for allowing me to participate in the care of this patient. Please call with any further questions. JOB# [id number]
[2017-03-05] MEDS: Dextrose 5% 1,000 ML IV SCH (04:33)
[2017-03-05] MEDS: INSULIN ASPART SLIDING SCALE 100 UNITS/ML UNIT SUBQ SCH ×4 (06:35→22:30)
--- NOTE | 2017-03-05 08:38 | General Progress Note ---
Subjective - Review of Systems Service Date: 03/05/17 Subjective: Patient is awake, alert, no acute distress. Objective - Results Result Diagrams: 03/04/17 05:35 03/04/17 05:35 Recent Labs: Laboratory Last Values WBC 8.2 Th/cmm (4.8-10.8) 03/04/17 05:35 RBC 3.00 Mil/cmm (3.80-5.20) L 03/04/17 05:35 Hgb 8.3 gm/dL (12-16) L 03/04/17 05:35 Hct 26.7 % (41.0-60) L D 03/04/17 05:35 MCV 89.1 fl (81-100) 03/04/17 05:35 MCH 27.8 pg (27.0-31.0) 03/04/17 05:35 MCHC Differential 31.2 pg (28.0-36.0) 03/04/17 05:35 RDW 20.6 % (11.5-20.0) H 03/04/17 05:35 Plt Count 218 Th/cmm (150-400) D 03/04/17 05:35 MPV 12.3 fl 03/04/17 05:35 Neutrophils % DIRECTOR OF TRAINING 03/03/17 09:00 Band Neutrophils % 8 % (0-10) 03/04/17 05:35 Lymphocytes % DIRECTOR OF TRAINING 03/03/17 09:00 Monocytes % DIRECTOR OF TRAINING 03/03/17 09:00 Eosinophils % DIRECTOR OF TRAINING 03/03/17 09:00 Neutrophils (Manual) 68 % (40-80) 03/04/17 05:35 Lymphocytes 17 % (20-50) L 03/04/17 05:35 Monocytes 3 % (2-10) 03/04/17 05:35 Eosinophils 3 % (0-5) 03/04/17 05:35 Nucleated RBCs 1.0 % (0-0) H 03/04/17 05:35 Anisocytosis 1+ 03/04/17 05:35 PT 11.9 SECONDS (9.5-11.5) H 03/03/17 09:00 INR 1.13 (0.5-1.4) 03/03/17 09:00 PTT (Actin FS) 36.6 SECONDS (26.0-38.0) 03/03/17 09:00 Sodium 159 mEq/L (136-145) H* 03/04/17 05:35 Potassium 3.9 mEq/L (3.5-5.1) 03/04/17 05:35 Chloride 123 mEq/L (98-107) H 03/04/17 05:35 Carbon Dioxide 30.4 mEq/L (21.0-31.0) 03/04/17 05:35 Anion Gap 9.5 (7.0-16.0) 03/04/17 05:35 BUN 59 mg/dL (7-25) H 03/04/17 05:35 Creatinine 1.1 mg/dL (0.6-1.2) 03/04/17 05:35 Est GFR ( Amer) TNP 03/04/17 05:35 Est GFR (Non-Af Amer) TNP 03/04/17 05:35 BUN/Creatinine Ratio 53.6 03/04/17 05:35 Glucose 296 mg/dL (70-105) H D 03/04/17 05:35 POC Glucose 216 MG/DL (70 - 105) H 03/05/17 05:43 Hemoglobin A1c % 10.2 % (4.0-6.0) H 03/03/17 09:00 Whole Bld Lactic Acid 2.20 mmol/L (0.60-1.99) H* 03/04/17 13:00 Calcium 9.4 mg/dL (8.6-10.3) 03/04/17 05:35 Iron 33 ug/dL (27-139) 03/03/17 09:00 TIBC 170 ug/dL (250-450) L 03/03/17 09:00 Iron Saturation 19 % (15-55) 03/03/17 09:00 Unsaturated IBC 137 ug/dL (118-369) 03/03/17 09:00 Ferritin 1421 ng/mL (15-150) H 03/03/17 09:00 Total Bilirubin 0.3 mg/dL (0.3-1.0) 03/04/17 05:35 Direct Bilirubin 0.06 mg/dL (0.0-0.2) 03/03/17 09:00 AST 31 U/L (13-39) 03/04/17 05:35 ALT 13 U/L (7-52) 03/04/17 05:35 Alkaline Phosphatase 107 U/L (34-104) H 03/04/17 05:35 C-Reactive Protein 33.4 mg/dL (0.0-0.9) H 03/03/17 09:00 B-Natriuretic Peptide 4190.0 pg/mL (5.0-100.0) H 03/03/17 09:00 Total Protein 8.0 gm/dL (6.0-8.3) 03/04/17 05:35 Albumin 2.5 gm/dL (3.7-5.3) L 03/04/17 05:35 Globulin 5.5 gm/dL 03/04/17 05:35 Albumin/Globulin Ratio 0.5 (1.0-1.8) L 03/04/17 05:35 Triglycerides 134 mg/dL (<150) 03/03/17 09:00 Cholesterol 49 mg/dL (<200) 03/03/17 09:00 LDL Cholesterol Direct 9 mg/dL (75-193) L 03/03/17 09:00 HDL Cholesterol 17 mg/dL (23-92) L 03/03/17 09:00 TSH 4.04 uIU/ml (0.34-5.60) 03/03/17 09:00 Urine Source CATH 03/03/17 09:59 Urine Color YELLOW 03/03/17 09:59 Urine Clarity CLOUDY (CLEAR) H 03/03/17 09:59 Urine pH 6.0 (4.6 - 8.0) 03/03/17 09:59 Ur Specific [place] 1.010 (1.005-1.030) 03/03/17 09:59 Urine Protein 30 mg/dL (NEGATIVE) H 03/03/17 09:59 Urine Glucose (UA) 100 mg/dL (NEGATIVE) H 03/03/17 09:59 Urine Ketones NEGATIVE mg/dL (NEGATIVE) 03/03/17 09:59 Urine Blood LARGE (NEGATIVE) H 03/03/17 09:59 Urine Nitrate NEGATIVE (NEGATIVE) 03/03/17 09:59 Urine Bilirubin NEGATIVE (NEGATIVE) 03/03/17 09:59 Urine Urobilinogen 0.2 E.U./dL (0.2 - 1.0) 03/03/17 09:59 Ur Leukocyte Esterase LARGE (NEGATIVE) H 01/22/18 09:59 Urine RBC 5-10 /hpf (0-5) H 03/03/17 09:59 Urine WBC 10-25 /hpf (0-5) H 03/03/17 09:59 Ur Epithelial Cells MODERATE /lpf (FEW) 03/03/17 09:59 Urine Bacteria 3+ /hpf (NONE SEEN) H 03/03/17 09:59 Urine Yeast MODERATE /hpf (NONE SEEN) H 03/03/17 09:59 Stool Occult Blood NEGATIVE (NEGATIVE) 03/04/17 09:30 Blood Type B POSITIVE 03/03/17 09:00 Antibody Screen NEGATIVE 03/03/17 09:00 Crossmatch See Detail 03/03/17 09:00 - Physical Exam Vitals and I&O: Vital Signs Temp 97.7 F 03/05/17 08:16 Pulse 81 03/05/17 08:16 Resp 18 03/05/17 08:16 BP 100/47 03/05/17 08:16 Pulse Ox 95 03/05/17 08:16 Intake & Output 03/04/17 03/05/17 03/05/17 18:59 06:59 18:59 Intake Total 900 1095 Output Total 1000 800 Balance -100 295 Weight (lbs) 68.039 kg 78.018 kg Intake: Intake, IV Amount 150 1095 Dextrose 5% 1,000 ml @ 50 945 mls/hr IV .Q20H [facility] Rx#: [id number] Levofloxacin 500mg/100mL 100 500 mg In 100 ml @ 100 mls/hr IV Q24H [facility] Rx#: [id number] Piperacillin Sodium/ 50 150 Tazobact 3.375 gm In Sodium Chloride 0.9% 50 ml @ 100 mls/hr IV Q6HR [facility] Rx#:[id number] Oral 0 Tube Feeding 550 Other 200 Output: Urine 1000 800 Other: # Bowel Movements 300 Stool Characteristics Soft Soft Formed Formed Liquid Active Medications: Current Medications Carbidopa/Levodopa (Sinemet 25mg-100 Mg) 1 tab GT Q8HR [facility] Stop: 05/02/17 12:59 Last Admin: 03/05/17 04:33 Dose: 1 tab [place] Oil/[place]namese Balsam/Trypsin (Venelex) 1 appl TP DAILY [facility] Stop: 05/04/17 08:59 Docusate Sodium (Colace) 100 mg PO BID [facility] Stop: 05/02/17 16:59 Last Admin: 03/04/17 16:32 Dose: 100 mg Donepezil HCl (Aricept) 10 mg GT HS [facility] Stop: 05/02/17 20:59 Last Admin: 03/04/17 21:01 Dose: 10 mg Ferrous Sulfate (Iron) 325 mg PO BID [facility] Stop: 05/03/17 16:59 Last Admin: 03/04/17 16:32 Dose: 325 mg Heparin Sodium (Porcine) (Heparin) 5,000 units SUBQ Q12HR [facility] Stop: 05/02/17 20:59 Last Admin: 03/04/17 21:01 Dose: 5,000 units Dextrose (D5w) 1,000 mls @ 50 mls/hr IV .Q20H [facility] Stop: 05/03/17 08:29 Last Admin: 03/05/17 04:33 Dose: 50 mls/hr Levofloxacin (Levaquin Pb) 500 mg in 100 mls @ 100 mls/hr IV Q24H [facility] Stop: 05/03/17 10:59 Last Infusion: 03/04/17 11:00 Dose: Infused Piperacillin Sod/Tazobactam (Sod 3.375 gm/ Sodium Chloride) 50 mls @ 100 mls/ hr IV Q6HR [facility] Stop: 05/03/17 11:59 Last Infusion: 03/05/17 05:50 Dose: Infused Vancomycin HCl 1 gm/ Sodium (Chloride) 250 mls @ 165 mls/hr IV Q24H [facility] Stop: 05/03/17 12:59 Last Admin: 03/04/17 14:00 Dose: 165 mls/hr Insulin Aspart (Novolog Insulin Sliding Scale) 0 units SUBQ ACHS [facility] PRN Reason: Protocol Stop: 05/03/17 11:29 Last Admin: 03/05/17 06:35 Dose: 4 units Insulin Detemir (Levemir Insulin) 25 units SUBQ HS [facility] PRN Reason: Protocol Stop: 05/02/17 20:59 Last Admin: 03/04/17 21:00 Dose: 25 units Levetiracetam (Keppra) 500 mg PO Q8HR [facility] Stop: 05/02/17 12:59 Last Admin: 03/05/17 04:33 Dose: 500 mg Memantine (Namenda) 10 mg GT BID [facility] Stop: 05/02/17 16:59 Last Admin: 03/04/17 16:33 Dose: 10 mg Miscellaneous (Vancomycin Iv Per Pharmacy) 1 ea [facility] PRN PRN PRN Reason: PROTOCOL Stop: 05/03/17 08:30 Pantoprazole Sodium (Protonix) 40 mg IVP DAILY [facility] Stop: 05/04/17 09:59 Risperidone (Risperdal) 0.5 mg PO BID [facility] Stop: 05/02/17 16:59 Last Admin: 03/04/17 16:33 Dose: 0.5 mg General: Alert, No acute distress HEENT: Atraumatic, PERRLA, EOMI Neck: Supple, JVD Cardiovascular: Regular rate, Normal S1, Normal S2 Lungs: Clear to auscultation Abdomen: Bowel sounds, Soft Extremities: Clubbing Neurological: Normal gait, Normal speech - Procedures Procedures: Procedures Procedure Code Date CHANGE GASTROSTOMY TUBE 25479 06/25/12 INJECT/INFUSE NEC 99.29 09/11/07 INSERT PICC CATH 01616 12/19/11 INSERT TUNNELED CV CATH 19882 07/08/07 OTHER ENDOSCOPY OF SM INTEST 45.13 05/05/10 PLACE NEEDLE IN VEIN 84751 07/08/07 REPLACE G/C TUBE PERC 56054 10/19/11 REPLACE GASTROSTOMY TUBE 97.02 06/25/12 TRANSABDOM ENDOSC OF SM INTES 45.11 09/11/07 VENOUS CATHETERIZATION NEC 38.93 12/19/11 VENOUS PUNCTURE NEC 38.99 07/08/07 Assessment/Plan - Assessment Assessment: sepsis vs urosepsis hypernatremia elevated BNP acute on chronic anemia r/o GIB diabetes mellitus type 2 schizophrenia CVA w/ right sided hemiplegia h/o UTI s/p colostomy parkinson's disease hypothyroidism vascular dementia dysphagia CHF CAD - Plan Plan: General Surgery consult -- Dr. Bates ID consult -- Dr. Regan Garcia Cardiology consult -- Dr. Garcia GI Consult -- Dr. Boone repeat CBC, CMP continue IV anitbiotics .. IV Zosyn, IV Vancomycin Blood culture pending, Urine Cultures pending Nutritional Asmnt/Malnutr-PDOC - Dietary Evaluation Malnutrition Findings (Please click <Entered> for more info): Nutritional Asmnt/Malnutrition Start: 03/04/17 18: 06 Text: Status: Complete Freq: Document 03/04/17 18:06 LCHENG (Rec: 03/04/17 18:19 [id number]) Nutritional Asmnt/Malnutrition Patient General Information Nutritional Screening High Risk Consult Diagnosis urosepsis, dehydration Pertinent Medical Hx/Surgical Hx DM, schizophrenia, CVA, chronic anemia, dysphagia, vascular dementia, s/p colostomy, parkinson, CHF, CAD , UTI Subjective Information Consult received for florence Hamilton . Pt seen resting in bed at time of visit. Verified TF runnign at 55ml/hr at this time. Current Diet Order/ Nutrition Support Diabetisource 55ml/hr x 20hr Pertinent Medications D5w, colace, Iron, novolog, levemir, levaquin, piperacillin, protinix, vancomycin Pertinent Labs 03/04 Na 159, K 3.9, Cl 123, BUN 59, CR 1.1, Glucose 296, POC 245-363, Ca 9.4 03/03 A1c 10.2 Nutritional Hx/Data Height 1.63 m Height (Calculated Centimeters) 162.6 Current Weight (lbs) 68.039 kg Weight (Calculated Kilograms) 68.0 Weight (Calculated Grams) 40299.9 [place] Body Weight 120 % [place] Body Weight 125 Body Mass Index (BMI) 25.7 Weight Status Overweight GI Symptoms GI Symptoms None Last BM 03/03 x 3 Difficult in: None Skin Integrity/Comment: decubitus ulceration to sacrum Estimated Nutritional Goals BEE in Kcals: Adj wt of IBW Calories/Kcals/Kg 23-27 based on adj wt 58kg Kcals Calculated 1965-0194 considering bedbound Protein: Adj wt of IBW Protein g/k-1.2 Protein Calculated 58-70 Fluid: ml 1334-1566ml (1ml/kcal) Nutritional Problem 1. Problem Problem altered nutrition related lab values Etiology imbalanced electrolytes/fluid, hx of DM Signs/Symptoms: Na 159, Cl 123, BUN 59, Glucose 296, POC 245-363 Malnutrition Alert Protein-Calorie Malnutrition N/A Is there a minimum of two criteria No selected? Query Text:Check all the applicable criteria. A minimum of two criteria are recommended for diagnosis of either severe or non-severe malnutrition. Intervention/Recommendation Comments 1. Continue with current TF regimen. It provides 1320kcal, 66g protein, meeting 100% of nutritional needs 2. Monitor TF rate, tolerance, wt weekly, skin integrity and labs 3. F/U as moderate risk in 3-5 days, 03/07-03/09 Expected Outcomes/Goals Expected Outcomes/Goals 1. Pt to meet at least 75% of nutritional needs via nutrition support with tolerance 2. Wt stability, skin to remain intact, labs to approach WNL.
--- NOTE | 2017-03-05 08:44 | GI Progress Note ---
Subjective - Review of Systems Service Date: 03/05/17 Subjective: Responds to her name today, colostomy with green soft stool Objective - Results Result Diagrams: 03/04/17 05:35 03/04/17 05:35 Recent Labs: Laboratory Last Values WBC 8.2 Th/cmm (4.8-10.8) 03/04/17 05:35 RBC 3.00 Mil/cmm (3.80-5.20) L 03/04/17 05:35 Hgb 8.3 gm/dL (12-16) L 03/04/17 05:35 Hct 26.7 % (41.0-60) L D 03/04/17 05:35 MCV 89.1 fl (81-100) 03/04/17 05:35 MCH 27.8 pg (27.0-31.0) 03/04/17 05:35 MCHC Differential 31.2 pg (28.0-36.0) 03/04/17 05:35 RDW 20.6 % (11.5-20.0) H 03/04/17 05:35 Plt Count 218 Th/cmm (150-400) D 03/04/17 05:35 MPV 12.3 fl 03/04/17 05:35 Neutrophils % BOTTLING MACHINE OPERATOR 03/03/17 09:00 Band Neutrophils % 8 % (0-10) 03/04/17 05:35 Lymphocytes % BOTTLING MACHINE OPERATOR 03/03/17 09:00 Monocytes % BOTTLING MACHINE OPERATOR 03/03/17 09:00 Eosinophils % BOTTLING MACHINE OPERATOR 03/03/17 09:00 Neutrophils (Manual) 68 % (40-80) 03/04/17 05:35 Lymphocytes 17 % (20-50) L 03/04/17 05:35 Monocytes 3 % (2-10) 03/04/17 05:35 Eosinophils 3 % (0-5) 03/04/17 05:35 Nucleated RBCs 1.0 % (0-0) H 03/04/17 05:35 Anisocytosis 1+ 03/04/17 05:35 PT 11.9 SECONDS (9.5-11.5) H 03/03/17 09:00 INR 1.13 (0.5-1.4) 03/03/17 09:00 PTT (Actin FS) 36.6 SECONDS (26.0-38.0) 03/03/17 09:00 Sodium 159 mEq/L (136-145) H* 03/04/17 05:35 Potassium 3.9 mEq/L (3.5-5.1) 03/04/17 05:35 Chloride 123 mEq/L (98-107) H 03/04/17 05:35 Carbon Dioxide 30.4 mEq/L (21.0-31.0) 03/04/17 05:35 Anion Gap 9.5 (7.0-16.0) 03/04/17 05:35 BUN 59 mg/dL (7-25) H 03/04/17 05:35 Creatinine 1.1 mg/dL (0.6-1.2) 03/04/17 05:35 Est GFR ( Amer) TNP 03/04/17 05:35 Est GFR (Non-Af Amer) TNP 03/04/17 05:35 BUN/Creatinine Ratio 53.6 03/04/17 05:35 Glucose 296 mg/dL (70-105) H D 03/04/17 05:35 POC Glucose 216 MG/DL (70 - 105) H 03/05/17 05:43 Hemoglobin A1c % 10.2 % (4.0-6.0) H 03/03/17 09:00 Whole Bld Lactic Acid 2.20 mmol/L (0.60-1.99) H* 03/04/17 13:00 Calcium 9.4 mg/dL (8.6-10.3) 03/04/17 05:35 Iron 33 ug/dL (27-139) 03/03/17 09:00 TIBC 170 ug/dL (250-450) L 03/03/17 09:00 Iron Saturation 19 % (15-55) 03/03/17 09:00 Unsaturated IBC 137 ug/dL (118-369) 03/03/17 09:00 Ferritin 1421 ng/mL (15-150) H 03/03/17 09:00 Total Bilirubin 0.3 mg/dL (0.3-1.0) 03/04/17 05:35 Direct Bilirubin 0.06 mg/dL (0.0-0.2) 03/03/17 09:00 AST 31 U/L (13-39) 03/04/17 05:35 ALT 13 U/L (7-52) 03/04/17 05:35 Alkaline Phosphatase 107 U/L (34-104) H 03/04/17 05:35 C-Reactive Protein 33.4 mg/dL (0.0-0.9) H 03/03/17 09:00 B-Natriuretic Peptide 4190.0 pg/mL (5.0-100.0) H 03/03/17 09:00 Total Protein 8.0 gm/dL (6.0-8.3) 03/04/17 05:35 Albumin 2.5 gm/dL (3.7-5.3) L 03/04/17 05:35 Globulin 5.5 gm/dL 03/04/17 05:35 Albumin/Globulin Ratio 0.5 (1.0-1.8) L 03/04/17 05:35 Triglycerides 134 mg/dL (<150) 03/03/17 09:00 Cholesterol 49 mg/dL (<200) 03/03/17 09:00 LDL Cholesterol Direct 9 mg/dL (75-193) L 03/03/17 09:00 HDL Cholesterol 17 mg/dL (23-92) L 03/03/17 09:00 TSH 4.04 uIU/ml (0.34-5.60) 03/03/17 09:00 Urine Source CATH 03/03/17 09:59 Urine Color YELLOW 03/03/17 09:59 Urine Clarity CLOUDY (CLEAR) H 03/03/17 09:59 Urine pH 6.0 (4.6 - 8.0) 03/03/17 09:59 Ur Specific [place] 1.010 (1.005-1.030) 03/03/17 09:59 Urine Protein 30 mg/dL (NEGATIVE) H 03/03/17 09:59 Urine Glucose (UA) 100 mg/dL (NEGATIVE) H 03/03/17 09:59 Urine Ketones NEGATIVE mg/dL (NEGATIVE) 03/03/17 09:59 Urine Blood LARGE (NEGATIVE) H 03/03/17 09:59 Urine Nitrate NEGATIVE (NEGATIVE) 03/03/17 09:59 Urine Bilirubin NEGATIVE (NEGATIVE) 03/03/17 09:59 Urine Urobilinogen 0.2 E.U./dL (0.2 - 1.0) 03/03/17 09:59 Ur Leukocyte Esterase LARGE (NEGATIVE) H 03/03/17 09:59 Urine RBC 5-10 /hpf (0-5) H 03/03/17 09:59 Urine WBC 10-25 /hpf (0-5) H 03/03/17 09:59 Ur Epithelial Cells MODERATE /lpf (FEW) 03/03/17 09:59 Urine Bacteria 3+ /hpf (NONE SEEN) H 03/03/17 09:59 Urine Yeast MODERATE /hpf (NONE SEEN) H 03/03/17 09:59 Stool Occult Blood NEGATIVE (NEGATIVE) 03/04/17 09:30 Blood Type B POSITIVE 03/03/17 09:00 Antibody Screen NEGATIVE 03/03/17 09:00 Crossmatch See Detail 03/03/17 09:00 - Physical Exam Vitals and I&O: Vital Signs Temp 97.7 F 03/05/17 08:16 Pulse 81 03/05/17 08:16 Resp 18 03/05/17 08:16 BP 100/47 03/05/17 08:16 Pulse Ox 95 03/05/17 08:16 Intake & Output 03/04/17 03/05/17 03/05/17 18:59 06:59 18:59 Intake Total 900 1095 Output Total 1000 800 Balance -100 295 Weight (lbs) 68.039 kg 78.018 kg Intake: Intake, IV Amount 150 1095 Dextrose 5% 1,000 ml @ 50 945 mls/hr IV .Q20H [facility] Rx#: [id number] Levofloxacin 500mg/100mL 100 500 mg In 100 ml @ 100 mls/hr IV Q24H [facility] Rx#: [id number] Piperacillin Sodium/ 50 150 Tazobact 3.375 gm In Sodium Chloride 0.9% 50 ml @ 100 mls/hr IV Q6HR [facility] Rx#:[id number] Oral 0 Tube Feeding 550 Other 200 Output: Urine 1000 800 Other: # Bowel Movements 300 Stool Characteristics Soft Soft Formed Formed Liquid Active Medications: Current Medications Carbidopa/Levodopa (Sinemet 25mg-100 Mg) 1 tab GT Q8HR [facility] Stop: 05/02/17 12:59 Last Admin: 03/05/17 04:33 Dose: 1 tab [place] Oil/[place] Balsam/Trypsin (Venelex) 1 appl TP DAILY [facility] Stop: 05/04/17 08:59 Docusate Sodium (Colace) 100 mg PO BID [facility] Stop: 05/02/17 16:59 Last Admin: 03/04/17 16:32 Dose: 100 mg Donepezil HCl (Aricept) 10 mg GT HS [facility] Stop: 05/02/17 20:59 Last Admin: 03/04/17 21:01 Dose: 10 mg Ferrous Sulfate (Iron) 325 mg PO BID [facility] Stop: 05/03/17 16:59 Last Admin: 03/04/17 16:32 Dose: 325 mg Heparin Sodium (Porcine) (Heparin) 5,000 units SUBQ Q12HR [facility] Stop: 05/02/17 20:59 Last Admin: 03/04/17 21:01 Dose: 5,000 units Dextrose (D5w) 1,000 mls @ 50 mls/hr IV .Q20H [facility] Stop: 05/03/17 08:29 Last Admin: 03/05/17 04:33 Dose: 50 mls/hr Levofloxacin (Levaquin Pb) 500 mg in 100 mls @ 100 mls/hr IV Q24H [facility] Stop: 05/03/17 10:59 Last Infusion: 03/04/17 11:00 Dose: Infused Piperacillin Sod/Tazobactam (Sod 3.375 gm/ Sodium Chloride) 50 mls @ 100 mls/ hr IV Q6HR [facility] Stop: 05/03/17 11:59 Last Infusion: 03/05/17 05:50 Dose: Infused Vancomycin HCl 1 gm/ Sodium (Chloride) 250 mls @ 165 mls/hr IV Q24H [facility] Stop: 05/03/17 12:59 Last Admin: 03/04/17 14:00 Dose: 165 mls/hr Insulin Aspart (Novolog Insulin Sliding Scale) 0 units SUBQ ACHS [facility] PRN Reason: Protocol Stop: 05/03/17 11:29 Last Admin: 03/05/17 06:35 Dose: 4 units Insulin Detemir (Levemir Insulin) 25 units SUBQ HS [facility] PRN Reason: Protocol Stop: 05/02/17 20:59 Last Admin: 03/04/17 21:00 Dose: 25 units Levetiracetam (Keppra) 500 mg PO Q8HR [facility] Stop: 05/02/17 12:59 Last Admin: 03/05/17 04:33 Dose: 500 mg Memantine (Namenda) 10 mg GT BID [facility] Stop: 05/02/17 16:59 Last Admin: 03/04/17 16:33 Dose: 10 mg Miscellaneous (Vancomycin Iv Per Pharmacy) 1 ea [facility] PRN PRN PRN Reason: PROTOCOL Stop: 05/03/17 08:30 Pantoprazole Sodium (Protonix) 40 mg IVP DAILY [facility] Stop: 05/04/17 09:59 Risperidone (Risperdal) 0.5 mg PO BID [facility] Stop: 05/02/17 16:59 Last Admin: 03/04/17 16:33 Dose: 0.5 mg General: Alert Neck: Supple Cardiovascular: Regular rate Abdomen: Bowel sounds, Soft, Obese, Other (soft, colostomy with green stool, no guard or rebound, no tenderness) - Procedures Procedures: Procedures Procedure Code Date CHANGE GASTROSTOMY TUBE 23133 06/25/12 INJECT/INFUSE NEC 99.29 09/11/07 INSERT PICC CATH 10082 12/19/11 INSERT TUNNELED CV CATH 78201 07/08/07 OTHER ENDOSCOPY OF SM INTEST 45.13 05/05/10 PLACE NEEDLE IN VEIN 94573 07/08/07 REPLACE G/C TUBE PERC 62059 10/19/11 REPLACE GASTROSTOMY TUBE 97.02 06/25/12 TRANSABDOM ENDOSC OF SM INTES 45.11 09/11/07 VENOUS CATHETERIZATION NEC 38.93 12/19/11 VENOUS PUNCTURE NEC 38.99 07/08/07 Assessment/Plan - Assessment Assessment: # Schizophrenia # Dysphagia # Dementia # Previous sigmoid volvulus s/p colostomy # Bilateral feet ischemia # Anemia There is no overt bleeding, and pt did just have endoscopic exam in 01/2017 at [facility] (by report). Thus the utility of repeating EGD/colo now in the absence of overt bleeding would be low. Suspect chronic anemia is multifactorial , and is likely to have chronic illness and nutritional component as well. Plan: - cont G tube feeding - f/u iron labs, supplement iron if low - cycle hgb, transfuse to keep > 7 - management of ischemic feet as per surgery
--- NOTE | 2017-03-05 08:51 | Diagnostic Imaging Report ---
Exam: KUB of the abdomen. HISTORY: Ileus. Findings: Portable supine examination of the abdomen at 0838 hours reviewed. The study demonstrates a nonspecific bowel gas pattern. Gastrostomy tube is noted. Bony structures are unremarkable for degenerative changes. IMPRESSION: Nonspecific bowel gas pattern unchanged upper prior examination day earlier.
--- NOTE | 2017-03-05 08:54 | General Progress Note ---
Subjective - Review of Systems Service Date: 03/05/17 Events since last encounter: awaiting for bone scan and arterial doppler studies will likely need amputations, also debridement of ulcers Objective - Results Result Diagrams: 03/04/17 05:35 03/04/17 05:35 Recent Labs: Laboratory Last Values WBC 8.2 Th/cmm (4.8-10.8) 03/04/17 05:35 RBC 3.00 Mil/cmm (3.80-5.20) L 03/04/17 05:35 Hgb 8.3 gm/dL (12-16) L 03/04/17 05:35 Hct 26.7 % (41.0-60) L D 03/04/17 05:35 MCV 89.1 fl (81-100) 03/04/17 05:35 MCH 27.8 pg (27.0-31.0) 03/04/17 05:35 MCHC Differential 31.2 pg (28.0-36.0) 03/04/17 05:35 RDW 20.6 % (11.5-20.0) H 03/04/17 05:35 Plt Count 218 Th/cmm (150-400) D 03/04/17 05:35 MPV 12.3 fl 03/04/17 05:35 Neutrophils % SPEECH AND LANGUAGE CLINICIAN 03/03/17 09:00 Band Neutrophils % 8 % (0-10) 03/04/17 05:35 Lymphocytes % SPEECH AND LANGUAGE CLINICIAN 03/03/17 09:00 Monocytes % SPEECH AND LANGUAGE CLINICIAN 03/03/17 09:00 Eosinophils % SPEECH AND LANGUAGE CLINICIAN 03/03/17 09:00 Neutrophils (Manual) 68 % (40-80) 03/04/17 05:35 Lymphocytes 17 % (20-50) L 03/04/17 05:35 Monocytes 3 % (2-10) 03/04/17 05:35 Eosinophils 3 % (0-5) 03/04/17 05:35 Nucleated RBCs 1.0 % (0-0) H 03/04/17 05:35 Anisocytosis 1+ 03/04/17 05:35 PT 11.9 SECONDS (9.5-11.5) H 03/03/17 09:00 INR 1.13 (0.5-1.4) 03/03/17 09:00 PTT (Actin FS) 36.6 SECONDS (26.0-38.0) 03/03/17 09:00 Sodium 159 mEq/L (136-145) H* 03/04/17 05:35 Potassium 3.9 mEq/L (3.5-5.1) 03/04/17 05:35 Chloride 123 mEq/L (98-107) H 03/04/17 05:35 Carbon Dioxide 30.4 mEq/L (21.0-31.0) 03/04/17 05:35 Anion Gap 9.5 (7.0-16.0) 03/04/17 05:35 BUN 59 mg/dL (7-25) H 03/04/17 05:35 Creatinine 1.1 mg/dL (0.6-1.2) 03/04/17 05:35 Est GFR ( Amer) TNP 03/04/17 05:35 Est GFR (Non-Af Amer) TNP 03/04/17 05:35 BUN/Creatinine Ratio 53.6 03/04/17 05:35 Glucose 296 mg/dL (70-105) H D 03/04/17 05:35 POC Glucose 216 MG/DL (70 - 105) H 03/05/17 05:43 Hemoglobin A1c % 10.2 % (4.0-6.0) H 03/03/17 09:00 Whole Bld Lactic Acid 2.20 mmol/L (0.60-1.99) H* 03/04/17 13:00 Calcium 9.4 mg/dL (8.6-10.3) 03/04/17 05:35 Iron 33 ug/dL (27-139) 03/03/17 09:00 TIBC 170 ug/dL (250-450) L 03/03/17 09:00 Iron Saturation 19 % (15-55) 03/03/17 09:00 Unsaturated IBC 137 ug/dL (118-369) 03/03/17 09:00 Ferritin 1421 ng/mL (15-150) H 03/03/17 09:00 Total Bilirubin 0.3 mg/dL (0.3-1.0) 03/04/17 05:35 Direct Bilirubin 0.06 mg/dL (0.0-0.2) 03/03/17 09:00 AST 31 U/L (13-39) 03/04/17 05:35 ALT 13 U/L (7-52) 03/04/17 05:35 Alkaline Phosphatase 107 U/L (34-104) H 03/04/17 05:35 C-Reactive Protein 33.4 mg/dL (0.0-0.9) H 03/03/17 09:00 B-Natriuretic Peptide 4190.0 pg/mL (5.0-100.0) H 03/03/17 09:00 Total Protein 8.0 gm/dL (6.0-8.3) 03/04/17 05:35 Albumin 2.5 gm/dL (3.7-5.3) L 03/04/17 05:35 Globulin 5.5 gm/dL 03/04/17 05:35 Albumin/Globulin Ratio 0.5 (1.0-1.8) L 03/04/17 05:35 Triglycerides 134 mg/dL (<150) 03/03/17 09:00 Cholesterol 49 mg/dL (<200) 03/03/17 09:00 LDL Cholesterol Direct 9 mg/dL (75-193) L 03/03/17 09:00 HDL Cholesterol 17 mg/dL (23-92) L 03/03/17 09:00 TSH 4.04 uIU/ml (0.34-5.60) 03/03/17 09:00 Urine Source CATH 03/03/17 09:59 Urine Color YELLOW 03/03/17 09:59 Urine Clarity CLOUDY (CLEAR) H 03/03/17 09:59 Urine pH 6.0 (4.6 - 8.0) 03/03/17 09:59 Ur Specific [place] 1.010 (1.005-1.030) 03/03/17 09:59 Urine Protein 30 mg/dL (NEGATIVE) H 03/03/17 09:59 Urine Glucose (UA) 100 mg/dL (NEGATIVE) H 03/03/17 09:59 Urine Ketones NEGATIVE mg/dL (NEGATIVE) 03/03/17 09:59 Urine Blood LARGE (NEGATIVE) H 03/03/17 09:59 Urine Nitrate NEGATIVE (NEGATIVE) 03/03/17 09:59 Urine Bilirubin NEGATIVE (NEGATIVE) 03/03/17 09:59 Urine Urobilinogen 0.2 E.U./dL (0.2 - 1.0) 03/03/17 09:59 Ur Leukocyte Esterase LARGE (NEGATIVE) H 03/03/17 09:59 Urine RBC 5-10 /hpf (0-5) H 03/03/17 09:59 Urine WBC 10-25 /hpf (0-5) H 03/03/17 09:59 Ur Epithelial Cells MODERATE /lpf (FEW) 03/03/17 09:59 Urine Bacteria 3+ /hpf (NONE SEEN) H 03/03/17 09:59 Urine Yeast MODERATE /hpf (NONE SEEN) H 03/03/17 09:59 Stool Occult Blood NEGATIVE (NEGATIVE) 03/04/17 09:30 Blood Type B POSITIVE 03/03/17 09:00 Antibody Screen NEGATIVE 03/03/17 09:00 Crossmatch See Detail 03/03/17 09:00 - Physical Exam Vitals and I&O: Vital Signs Temp 97.7 F 03/05/17 08:16 Pulse 81 03/05/17 08:16 Resp 18 03/05/17 08:16 BP 100/47 03/05/17 08:16 Pulse Ox 95 03/05/17 08:16 Intake & Output 03/04/17 03/05/17 03/05/17 18:59 06:59 18:59 Intake Total 900 1095 Output Total 1000 800 Balance -100 295 Weight (lbs) 68.039 kg 78.018 kg Intake: Intake, IV Amount 150 1095 Dextrose 5% 1,000 ml @ 50 945 mls/hr IV .Q20H [facility] Rx#: [id number] Levofloxacin 500mg/100mL 100 500 mg In 100 ml @ 100 mls/hr IV Q24H [facility] Rx#: [id number] Piperacillin Sodium/ 50 150 Tazobact 3.375 gm In Sodium Chloride 0.9% 50 ml @ 100 mls/hr IV Q6HR [facility] Rx#:[id number] Oral 0 Tube Feeding 550 Other 200 Output: Urine 1000 800 Other: # Bowel Movements 300 Stool Characteristics Soft Soft Formed Formed Liquid Active Medications: Current Medications Carbidopa/Levodopa (Sinemet 25mg-100 Mg) 1 tab GT Q8HR [facility] Stop: 05/02/17 12:59 Last Admin: 03/05/17 04:33 Dose: 1 tab [place] Oil/[place] Balsam/Trypsin (Venelex) 1 appl TP DAILY [facility] Stop: 05/04/17 08:59 Docusate Sodium (Colace) 100 mg PO BID [facility] Stop: 05/02/17 16:59 Last Admin: 03/04/17 16:32 Dose: 100 mg Donepezil HCl (Aricept) 10 mg GT HS [facility] Stop: 05/02/17 20:59 Last Admin: 03/04/17 21:01 Dose: 10 mg Ferrous Sulfate (Iron) 325 mg PO BID [facility] Stop: 05/03/17 16:59 Last Admin: 03/04/17 16:32 Dose: 325 mg Heparin Sodium (Porcine) (Heparin) 5,000 units SUBQ Q12HR [facility] Stop: 05/02/17 20:59 Last Admin: 03/04/17 21:01 Dose: 5,000 units Dextrose (D5w) 1,000 mls @ 50 mls/hr IV .Q20H [facility] Stop: 05/03/17 08:29 Last Admin: 03/05/17 04:33 Dose: 50 mls/hr Levofloxacin (Levaquin Pb) 500 mg in 100 mls @ 100 mls/hr IV Q24H [facility] Stop: 05/03/17 10:59 Last Infusion: 03/04/17 11:00 Dose: Infused Piperacillin Sod/Tazobactam (Sod 3.375 gm/ Sodium Chloride) 50 mls @ 100 mls/ hr IV Q6HR [facility] Stop: 05/03/17 11:59 Last Infusion: 03/05/17 05:50 Dose: Infused Vancomycin HCl 1 gm/ Sodium (Chloride) 250 mls @ 165 mls/hr IV Q24H [facility] Stop: 05/04/17 09:59 Vancomycin HCl 1 gm/ Sodium (Chloride) 250 mls @ 165 mls/hr IV Q24HR@0900 [facility] Stop: 05/04/17 09:59 Insulin Aspart (Novolog Insulin Sliding Scale) 0 units SUBQ ACHS [facility] PRN Reason: Protocol Stop: 05/03/17 11:29 Last Admin: 03/05/17 06:35 Dose: 4 units Insulin Detemir (Levemir Insulin) 25 units SUBQ HS [facility] PRN Reason: Protocol Stop: 05/02/17 20:59 Last Admin: 03/04/17 21:00 Dose: 25 units Insulin Detemir (Levemir Insulin) 5 units SUBQ QAM [facility] PRN Reason: Protocol Stop: 05/04/17 08:59 Levetiracetam (Keppra) 500 mg PO Q8HR [facility] Stop: 05/02/17 12:59 Last Admin: 03/05/17 04:33 Dose: 500 mg Memantine (Namenda) 10 mg GT BID [facility] Stop: 05/02/17 16:59 Last Admin: 03/04/17 16:33 Dose: 10 mg Miscellaneous (Vancomycin Iv Per Pharmacy) 1 ea PRN PRN PRN Reason: PROTOCOL Stop: 05/03/17 08:30 Pantoprazole Sodium (Protonix) 40 mg IVP DAILY [facility] Stop: 05/04/17 09:59 Risperidone (Risperdal) 0.5 mg PO BID [facility] Stop: 05/02/17 16:59 Last Admin: 03/04/17 16:33 Dose: 0.5 mg General: Alert, No acute distress HEENT: Atraumatic, PERRLA, EOMI Neck: Supple, JVD Cardiovascular: Regular rate, Normal S1, Normal S2 Lungs: Clear to auscultation Abdomen: Bowel sounds, Soft Extremities: Clubbing Neurological: Normal gait, Normal speech - Procedures Procedures: Procedures Procedure Code Date CHANGE GASTROSTOMY TUBE 76812 06/25/12 INJECT/INFUSE NEC 99.29 09/11/07 INSERT PICC CATH 33584 12/19/11 INSERT TUNNELED CV CATH 12871 07/08/07 OTHER ENDOSCOPY OF SM INTEST 45.13 05/05/10 PLACE NEEDLE IN VEIN 14691 07/08/07 REPLACE G/C TUBE PERC 34511 10/19/11 REPLACE GASTROSTOMY TUBE 97.02 06/25/12 TRANSABDOM ENDOSC OF SM INTES 45.11 09/11/07 VENOUS CATHETERIZATION NEC 38.93 12/19/11 VENOUS PUNCTURE NEC 38.99 07/08/07 Nutritional Asmnt/Malnutr-PDOC - Dietary Evaluation Malnutrition Findings (Please click <Entered> for more info): Nutritional Asmnt/Malnutrition Start: 03/04/17 18: 06 Text: Status: Complete Freq: Document 03/04/17 18:06 MIGUELITO (Rec: 03/04/17 18:19 TOMÁSG [email or web address]) Nutritional Asmnt/Malnutrition Patient General Information Nutritional Screening High Risk Consult Diagnosis urosepsis, dehydration Pertinent Medical Hx/Surgical Hx DM, schizophrenia, CVA, chronic anemia, dysphagia, vascular dementia, s/p colostomy, parkinson, CHF, CAD , UTI Subjective Information Consult received for florence 10 . Pt seen resting in bed at time of visit. Verified TF runnign at 55ml/hr at this time. Current Diet Order/ Nutrition Support Diabetisource 55ml/hr x 20hr Pertinent Medications D5w, colace, Iron, novolog, levemir, levaquin, piperacillin, protinix, vancomycin Pertinent Labs 03/04 Na 159, K 3.9, Cl 123, BUN 59, CR 1.1, Glucose 296, POC 245-363, Ca 9.4 03/03 A1c 10.2 Nutritional Hx/Data Height 1.63 m Height (Calculated Centimeters) 162.6 Current Weight (lbs) 68.039 kg Weight (Calculated Kilograms) 68.0 Weight (Calculated Grams) 85078.9 [place] Body Weight 120 % [place] Body Weight 125 Body Mass Index (BMI) 25.7 Weight Status Overweight GI Symptoms GI Symptoms None Last BM 03/03 x 3 Difficult in: None Skin Integrity/Comment: decubitus ulceration to sacrum Estimated Nutritional Goals BEE in Kcals: Adj wt of IBW Calories/Kcals/Kg 23-27 based on adj wt 58kg Kcals Calculated 7868-1057 considering bedbound Protein: Adj wt of IBW Protein g/k-1.2 Protein Calculated 58-70 Fluid: ml 1334-1566ml (1ml/kcal) Nutritional Problem 1. Problem Problem altered nutrition related lab values Etiology imbalanced electrolytes/fluid, hx of DM Signs/Symptoms: Na 159, Cl 123, BUN 59, Glucose 296, POC 245-363 Malnutrition Alert Protein-Calorie Malnutrition N/A Is there a minimum of two criteria No selected? Query Text:Check all the applicable criteria. A minimum of two criteria are recommended for diagnosis of either severe or non-severe malnutrition. Intervention/Recommendation Comments 1. Continue with current TF regimen. It provides 1320kcal, 66g protein, meeting 100% of nutritional needs 2. Monitor TF rate, tolerance, wt weekly, skin integrity and labs 3. F/U as moderate risk in 3-5 days, 03/07-03/09 Expected Outcomes/Goals Expected Outcomes/Goals 1. Pt to meet at least 75% of nutritional needs via nutrition support with tolerance 2. Wt stability, skin to remain intact, labs to approach WNL.
[2017-03-05] MEDS: Multivitamin w/ Minerals Tab GT SCH (09:52)
[2017-03-05] MEDS: Ferrous Sulfate 325 MG TAB PO SCH ×2 (09:53→16:41)
[2017-03-05] MEDS: Insulin Detemir 100 units/mL 10mL Vial SUBQ SCH ×2 (09:54→22:30)
[2017-03-05 09:59] LABS: ALB/GLOB RATIO 0.5 (1.0-1.8); ALBUMIN 2.4 gm/dL (3.7-5.3); ALKALINE PHOSPHATASE 105 U/L (34-104); ANION GAP 8.4 (7.0-16.0); BILIRUBIN,TOTAL 0.4 mg/dL (0.3-1.0); BUN - UREA NITROGEN 48 mg/dL (7-25); CALCIUM SERUM 9.4 mg/dL (8.6-10.3); CARBON DIOXIDE 29.6 mEq/L (21.0-31.0); CHLORIDE 120 mEq/L (98-107); CREATININE - SERUM 1.2 mg/dL (0.6-1.2); GLUCOSE 243 mg/dL (70-105); SGOT 20 U/L (13-39); SGPT/ALT 9 U/L (7-52); SODIUM SERUM 154 mEq/L (136-145); TOTAL PROTEIN,SERUM 7.7 gm/dL (6.0-8.3)
[2017-03-05 10:12] LABS: % BASOPHILS 0.6 % (0.0-2.0); % EOSINOPHILS 2.5 % (0.0-5.0); % LYMPHOCYTES 11.4 % (20.0-50.0); % MONOCYTES 7.1 % (2.0-10.0); % NEUTROPHILS 78.4 % (40.0-80.0); EOSINOPHILE ABSOLUTE 0.2 Th/cmm (0.1-0.4); HEMOGLOBIN 9.3 gm/dL (12-16); LYMPHOCYTE ABSOLUTE 0.8 Th/cmm (1.5-3.0); MEAN CELL VOLUME 89.3 fl (81-100); MEAN CORPUSCULAR HEMOGLOBIN 27.7 pg (27.0-31.0); MEAN PLATELET VOLUME 11.4 fl; MONOCYTE ABSOLUTE 0.5 Th/cmm (0.3-1.0); NEUTROPHILE ABSOLUTE 5.4 Th/cmm (1.8-8.0); PLATELET COUNT 209 Th/cmm (150-400); RED BLOOD COUNT 3.36 Mil/cmm (3.80-5.20); RED CELL DISTRIBUTION WIDTH 19.9 % (11.5-20.0); WHITE BLOOD COUNT 6.9 Th/cmm (4.8-10.8)
[2017-03-05 10:13] LABS: HEMATOCRIT 29.9 % (41.0-60)
[2017-03-05] MEDS: Levofloxacin 500mg/100mL 500 MG/100 ML BAG IV SCH (12:09)
--- NOTE | 2017-03-05 13:29 | Diagnostic Imaging Report ---
Nuclear medicine triple phase bone scan History: Sacral osteomyelitis, Comparison: Abdominal series on 03/04/2017. Technique/procedure: Exam is limited due to patient's medical condition and positioning. 20.8 mCi of technetium 99 MDP was administered intravenously and flow, blood flow, delayed scintigraphic images of the pelvis were obtained. Findings: Flow images demonstrate no significant focal uptake. Blood pool images demonstrate uptake within the bilateral SI joints and lower lumbar spine. Delayed images demonstrate uptake along the anterior pelvis and posterior sacral region. IMPRESSION: Nonspecific delayed uptake along the posterior sacral region. Osteomyelitis cannot be excluded. If indicated CT or MRI correlation may be obtained for further assessment Mild increased uptake seen along the lower lumbar spine, nonspecific. If indicated CT or MRI follow-up with further clarify.
--- NOTE | 2017-03-05 14:21 | Infectious Disease Prog Note ---
Infectious Disease Subjective - Review of Systems Service Date: 03/05/17 Subjective: No new change, no fever. Infectious Disease Objective - Results Result Diagrams: 03/05/17 10:03 03/05/17 09:30 Recent Labs: Laboratory Last Values WBC 6.9 Th/cmm (4.8-10.8) 03/05/17 10:03 RBC 3.36 Mil/cmm (3.80-5.20) L 03/05/17 10:03 Hgb 9.3 gm/dL (12-16) L 03/05/17 10:03 Hct 29.9 % (41.0-60) L D 03/05/17 10:03 MCV 89.3 fl (81-100) 03/05/17 10:03 MCH 27.7 pg (27.0-31.0) 03/05/17 10:03 MCHC Differential 31.0 pg (28.0-36.0) 03/05/17 10:03 RDW 19.9 % (11.5-20.0) 03/05/17 10:03 Plt Count 209 Th/cmm (150-400) 03/05/17 10:03 MPV 11.4 fl 03/05/17 10:03 Neutrophils % 78.4 % (40.0-80.0) 03/05/17 10:03 Band Neutrophils % 8 % (0-10) 03/04/17 05:35 Lymphocytes % 11.4 % (20.0-50.0) L 03/05/17 10:03 Monocytes % 7.1 % (2.0-10.0) 03/05/17 10:03 Eosinophils % 2.5 % (0.0-5.0) 03/05/17 10:03 Basophils % 0.6 % (0.0-2.0) 03/05/17 10:03 Neutrophils (Manual) 68 % (40-80) 03/04/17 05:35 Lymphocytes 17 % (20-50) L 03/04/17 05:35 Monocytes 3 % (2-10) 03/04/17 05:35 Eosinophils 3 % (0-5) 03/04/17 05:35 Nucleated RBCs 1.0 % (0-0) H 03/04/17 05:35 Anisocytosis 1+ 03/04/17 05:35 PT 11.9 SECONDS (9.5-11.5) H 03/03/17 09:00 INR 1.13 (0.5-1.4) 03/03/17 09:00 PTT (Actin FS) 36.6 SECONDS (26.0-38.0) 03/03/17 09:00 Sodium 154 mEq/L (136-145) H 03/05/17 09:30 Potassium 4.0 mEq/L (3.5-5.1) 03/05/17 09:30 Chloride 120 mEq/L (98-107) H 03/05/17 09:30 Carbon Dioxide 29.6 mEq/L (21.0-31.0) 03/05/17 09:30 Anion Gap 8.4 (7.0-16.0) 03/05/17 09:30 BUN 48 mg/dL (7-25) H 03/05/17 09:30 Creatinine 1.2 mg/dL (0.6-1.2) 03/05/17 09:30 Est GFR ( Amer) TNP 03/05/17 09:30 Est GFR (Non-Af Amer) TNP 03/05/17 09:30 BUN/Creatinine Ratio 40.0 03/05/17 09:30 Glucose 243 mg/dL (70-105) H 03/05/17 09:30 POC Glucose 217 MG/DL (70 - 105) H 03/05/17 12:04 Hemoglobin A1c % 10.2 % (4.0-6.0) H 03/03/17 09:00 Whole Bld Lactic Acid 2.20 mmol/L (0.60-1.99) H* 03/04/17 13:00 Calcium 9.4 mg/dL (8.6-10.3) 03/05/17 09:30 Iron 33 ug/dL (27-139) 03/03/17 09:00 TIBC 170 ug/dL (250-450) L 03/03/17 09:00 Iron Saturation 19 % (15-55) 03/03/17 09:00 Unsaturated IBC 137 ug/dL (118-369) 03/03/17 09:00 Ferritin 1421 ng/mL (15-150) H 03/03/17 09:00 Total Bilirubin 0.4 mg/dL (0.3-1.0) 03/05/17 09:30 Direct Bilirubin 0.06 mg/dL (0.0-0.2) 03/03/17 09:00 AST 20 U/L (13-39) 03/05/17 09:30 ALT 9 U/L (7-52) 03/05/17 09:30 Alkaline Phosphatase 105 U/L (34-104) H 03/05/17 09:30 C-Reactive Protein 33.4 mg/dL (0.0-0.9) H 03/03/17 09:00 B-Natriuretic Peptide 4190.0 pg/mL (5.0-100.0) H 03/03/17 09:00 Total Protein 7.7 gm/dL (6.0-8.3) 03/05/17 09:30 Albumin 2.4 gm/dL (3.7-5.3) L 03/05/17 09:30 Globulin 5.3 gm/dL 03/05/17 09:30 Albumin/Globulin Ratio 0.5 (1.0-1.8) L 03/05/17 09:30 Triglycerides 134 mg/dL (<150) 03/03/17 09:00 Cholesterol 49 mg/dL (<200) 03/03/17 09:00 LDL Cholesterol Direct 9 mg/dL (75-193) L 03/03/17 09:00 HDL Cholesterol 17 mg/dL (23-92) L 03/03/17 09:00 TSH 4.04 uIU/ml (0.34-5.60) 03/03/17 09:00 Urine Source CATH 03/03/17 09:59 Urine Color YELLOW 03/03/17 09:59 Urine Clarity CLOUDY (CLEAR) H 03/03/17 09:59 Urine pH 6.0 (4.6 - 8.0) 03/03/17 09:59 Ur Specific [place] 1.010 (1.005-1.030) 03/03/17 09:59 Urine Protein 30 mg/dL (NEGATIVE) H 03/03/17 09:59 Urine Glucose (UA) 100 mg/dL (NEGATIVE) H 03/03/17 09:59 Urine Ketones NEGATIVE mg/dL (NEGATIVE) 03/03/17 09:59 Urine Blood LARGE (NEGATIVE) H 03/03/17 09:59 Urine Nitrate NEGATIVE (NEGATIVE) 01/22/18 09:59 Urine Bilirubin NEGATIVE (NEGATIVE) 03/03/17 09:59 Urine Urobilinogen 0.2 E.U./dL (0.2 - 1.0) 03/03/17 09:59 Ur Leukocyte Esterase LARGE (NEGATIVE) H 03/03/17 09:59 Urine RBC 5-10 /hpf (0-5) H 03/03/17 09:59 Urine WBC 10-25 /hpf (0-5) H 03/03/17 09:59 Ur Epithelial Cells MODERATE /lpf (FEW) 03/03/17 09:59 Urine Bacteria 3+ /hpf (NONE SEEN) H 03/03/17 09:59 Urine Yeast MODERATE /hpf (NONE SEEN) H 03/03/17 09:59 Stool Occult Blood NEGATIVE (NEGATIVE) 03/04/17 09:30 Blood Type B POSITIVE 03/03/17 09:00 Antibody Screen NEGATIVE 03/03/17 09:00 Crossmatch See Detail 03/03/17 09:00 - Physical Exam Vitals and I&O: Vital Signs Temp 97.4 F 03/05/17 12:09 Pulse 89 03/05/17 12:09 Resp 18 03/05/17 12:09 BP 94/54 03/05/17 12:09 Pulse Ox 95 03/05/17 08:16 Intake & Output 03/04/17 03/05/17 03/05/17 18:59 06:59 18:59 Intake Total 900 1095 Output Total 1000 800 Balance -100 295 Weight (lbs) 68.039 kg 78.018 kg Intake: Intake, IV Amount 150 1095 Dextrose 5% 1,000 ml @ 50 945 mls/hr IV .Q20H [facility] Rx#: [id number] Levofloxacin 500mg/100mL 100 500 mg In 100 ml @ 100 mls/hr IV Q24H [facility] Rx#: [id number] Piperacillin Sodium/ 50 150 Tazobact 3.375 gm In Sodium Chloride 0.9% 50 ml @ 100 mls/hr IV Q6HR [facility] Rx#:[id number] Oral 0 Tube Feeding 550 Other 200 Output: Urine 1000 800 Other: # Bowel Movements 300 Stool Characteristics Soft Soft Soft Formed Formed Formed Liquid Liquid Active Medications: Current Medications Carbidopa/Levodopa (Sinemet 25mg-100 Mg) 1 tab GT Q8HR [facility] Stop: 05/02/17 12:59 Last Admin: 03/05/17 04:33 Dose: 1 tab [place] Oil/[place] Balsam/Trypsin (Venelex) 1 appl TP DAILY [facility] Stop: 05/04/17 08:59 Docusate Sodium (Colace) 100 mg PO BID [facility] Stop: 05/02/17 16:59 Last Admin: 03/05/17 09:52 Dose: 100 mg Donepezil HCl (Aricept) 10 mg GT HS [facility] Stop: 05/02/17 20:59 Last Admin: 03/04/17 21:01 Dose: 10 mg Ferrous Sulfate (Iron) 325 mg PO BID [facility] Stop: 05/03/17 16:59 Last Admin: 03/05/17 09:53 Dose: 325 mg Heparin Sodium (Porcine) (Heparin) 5,000 units SUBQ Q12HR [facility] Stop: 05/02/17 20:59 Last Admin: 03/05/17 09:52 Dose: 5,000 units Dextrose (D5w) 1,000 mls @ 50 mls/hr IV .Q20H [facility] Stop: 05/03/17 08:29 Last Admin: 03/05/17 04:33 Dose: 50 mls/hr Levofloxacin (Levaquin Pb) 500 mg in 100 mls @ 100 mls/hr IV Q24H [facility] Stop: 05/03/17 10:59 Last Admin: 03/05/17 12:09 Dose: 100 mls/hr Piperacillin Sod/Tazobactam (Sod 3.375 gm/ Sodium Chloride) 50 mls @ 100 mls/ hr IV Q6HR [facility] Stop: 05/03/17 11:59 Last Admin: 03/05/17 12:06 Dose: 100 mls/hr Vancomycin HCl 1 gm/ Sodium (Chloride) 250 mls @ 165 mls/hr IV Q24HR@0900 [facility] Stop: 05/04/17 09:59 Last Admin: 03/05/17 09:57 Dose: 165 mls/hr Insulin Aspart (Novolog Insulin Sliding Scale) 0 units SUBQ ACHS [facility] PRN Reason: Protocol Stop: 05/03/17 11:29 Last Admin: 03/05/17 12:26 Dose: 4 units Insulin Detemir (Levemir Insulin) 25 units SUBQ HS [facility] PRN Reason: Protocol Stop: 05/02/17 20:59 Last Admin: 03/04/17 21:00 Dose: 25 units Insulin Detemir (Levemir Insulin) 5 units SUBQ QAM [facility] PRN Reason: Protocol Stop: 05/04/17 08:59 Last Admin: 03/05/17 09:54 Dose: 5 units Levetiracetam (Keppra) 500 mg PO Q8HR [facility] Stop: 05/02/17 12:59 Last Admin: 03/05/17 04:33 Dose: 500 mg Memantine (Namenda) 10 mg GT BID [facility] Stop: 05/02/17 16:59 Last Admin: 03/05/17 09:52 Dose: 10 mg Miscellaneous (Vancomycin Iv Per Pharmacy) 1 ea [facility] PRN PRN PRN Reason: PROTOCOL Stop: 05/03/17 08:30 Pantoprazole Sodium (Protonix) 40 mg IVP DAILY [facility] Stop: 05/04/17 09:59 Last Admin: 03/05/17 12:11 Dose: 40 mg Risperidone (Risperdal) 0.5 mg PO BID [facility] Stop: 05/02/17 16:59 Last Admin: 03/05/17 09:52 Dose: 0.5 mg General: no acute distress, well developed, well nourished HEENT: atraumatic, normocephalic, PERRLA, EOMI, moist mucous membrane Neck: supple, no thyromegaly, no lymphadenopathy Cardiovascular: S1S2, regular Lungs: clear to auscultation bilaterally, clear to percussion Abdomen: soft, bowel sounds, other ( G tube ok, Colostomy in LLQ.), no tender, no distended, no mass Extremities: no cyanosis, no clubbing, no edema Neurological: awake, alert Skin: other (Multiple wounds) - Procedures Procedures: Procedures Procedure Code Date CHANGE GASTROSTOMY TUBE 63967 06/25/12 INJECT/INFUSE NEC 99.29 09/11/07 INSERT PICC CATH 71656 12/19/11 INSERT TUNNELED CV CATH 00604 07/08/07 OTHER ENDOSCOPY OF SM INTEST 45.13 05/05/10 PLACE NEEDLE IN VEIN 76660 07/08/07 REPLACE G/C TUBE PERC 37866 10/19/11 REPLACE GASTROSTOMY TUBE 97.02 06/25/12 TRANSABDOM ENDOSC OF SM INTES 45.11 09/11/07 VENOUS CATHETERIZATION NEC 38.93 12/19/11 VENOUS PUNCTURE NEC 38.99 07/08/07 Infectious Disease Assmt/Plan - Assessment Assessment: 1. UTI. 2. Multiple wounds, sacral decubitus. r/o oteomyelitis. 3. CVA. 4. DM2. 5. HTN. 6. Colostomy. - Plan Plan: will continue vanco IV and Zosyn. 3 P Bone scan. wound care. Nutritional Asmnt/Malnutr-PDOC - Dietary Evaluation Malnutrition Findings (Please click <Entered> for more info): Nutritional Asmnt/Malnutrition Start: 03/04/17 18: 06 Text: Status: Complete Freq: Document 03/04/17 18:06 MIGUELITO (Rec: 03/04/17 18:19 MIGUELITO JONES-FN) Nutritional Asmnt/Malnutrition Patient General Information Nutritional Screening High Risk Consult Diagnosis urosepsis, dehydration Pertinent Medical Hx/Surgical Hx DM, schizophrenia, CVA, chronic anemia, dysphagia, vascular dementia, s/p colostomy, parkinson, CHF, CAD , UTI Subjective Information Consult received for florence [place] . Pt seen resting in bed at time of visit. Verified TF runnign at 55ml/hr at this time. Current Diet Order/ Nutrition Support Diabetisource 55ml/hr x 20hr Pertinent Medications D5w, colace, Iron, novolog, levemir, levaquin, piperacillin, protinix, vancomycin Pertinent Labs 03/04 Na 159, K 3.9, Cl 123, BUN 59, CR 1.1, Glucose 296, POC 245-363, Ca 9.4 03/03 A1c 10.2 Nutritional Hx/Data Height 1.63 m Height (Calculated Centimeters) 162.6 Current Weight (lbs) 68.039 kg Weight (Calculated Kilograms) 68.0 Weight (Calculated Grams) 60442.9 [place] Body Weight 120 % [place] Body Weight 125 Body Mass Index (BMI) 25.7 Weight Status Overweight GI Symptoms GI Symptoms None Last BM 03/03 x 3 Difficult in: None Skin Integrity/Comment: decubitus ulceration to sacrum Estimated Nutritional Goals BEE in Kcals: Adj wt of IBW Calories/Kcals/Kg 23-27 based on adj wt 58kg Kcals Calculated 4646-2962 considering bedbound Protein: Adj wt of IBW Protein g/k-1.2 Protein Calculated 58-70 Fluid: ml 1334-1566ml (1ml/kcal) Nutritional Problem 1. Problem Problem altered nutrition related lab values Etiology imbalanced electrolytes/fluid, hx of DM Signs/Symptoms: Na 159, Cl 123, BUN 59, Glucose 296, POC 245-363 Malnutrition Alert Protein-Calorie Malnutrition N/A Is there a minimum of two criteria No selected? Query Text:Check all the applicable criteria. A minimum of two criteria are recommended for diagnosis of either severe or non-severe malnutrition. Intervention/Recommendation Comments 1. Continue with current TF regimen. It provides 1320kcal, 66g protein, meeting 100% of nutritional needs 2. Monitor TF rate, tolerance, wt weekly, skin integrity and labs 3. F/U as moderate risk in 3-5 days, 03/07-03/09 Expected Outcomes/Goals Expected Outcomes/Goals 1. Pt to meet at least 75% of nutritional needs via nutrition support with tolerance 2. Wt stability, skin to remain intact, labs to approach WNL.
--- NOTE | 2017-03-05 14:33 | Diagnostic Imaging Report ---
Bilateral lower extremity arterial Doppler study HISTORY: Pain COMPARISON: None Technique: Longitudinal and transverse sonographic images of the bilateral lower extremity arteries were obtained with doppler analysis. FINDINGS: Exam the right side demonstrates moderate to severe atherosclerotic vascular disease greatest distally with severely decreased velocity of the right tibialis anterior artery 8.5 cm/second. Monophasic waveforms are seen distally. Right OLGA is 1.1 Exam of the left side demonstrates moderate to severe atherosclerotic vascular disease greatest distally with marked decreased velocity of the tibialis posterior and dorsalis pedis arteries most pronounced within the dorsalis pedis artery at 8.5 cm/second. Left OLGA is 1 IMPRESSION: Moderate to severe bilateral atherosclerotic vascular disease greatest distally. No sonographic evidence of occlusion. If indicated CT angiography lower extremity may also be obtained.
[2017-03-05] MEDS ORDERED: Probiotic Screen MC PRN (17:00)
[2017-03-05] MEDS: Venelex 60gm Tube TP SCH (18:06)
[2017-03-06] MEDS: Dextrose 5% 1,000 ML IV SCH (05:55)
[2017-03-06] MEDS: INSULIN ASPART SLIDING SCALE 100 UNITS/ML UNIT SUBQ SCH ×4 (07:01→22:27)
[2017-03-06 08:22] LABS: % BASOPHILS 0.2 % (0.0-2.0); % EOSINOPHILS 2.5 % (0.0-5.0); % MONOCYTES 8.8 % (2.0-10.0); % NEUTROPHILS 78.5 % (40.0-80.0); EOSINOPHILE ABSOLUTE 0.2 Th/cmm (0.1-0.4); HEMATOCRIT 28.9 % (41.0-60); LYMPHOCYTE ABSOLUTE 0.8 Th/cmm (1.5-3.0); MEAN CELL VOLUME 89.3 fl (81-100); MEAN CORPUSCULAR HEMOGLOBIN 27.6 pg (27.0-31.0); MEAN PLATELET VOLUME 12.3 fl; MONOCYTE ABSOLUTE 0.7 Th/cmm (0.3-1.0); NEUTROPHILE ABSOLUTE 6.2 Th/cmm (1.8-8.0); PLATELET COUNT 234 Th/cmm (150-400); RED BLOOD COUNT 3.24 Mil/cmm (3.80-5.20); RED CELL DISTRIBUTION WIDTH 19.5 % (11.5-20.0); WHITE BLOOD COUNT 7.9 Th/cmm (4.8-10.8)
--- NOTE | 2017-03-06 08:24 | General Progress Note ---
Subjective - Review of Systems Service Date: 03/06/17 Subjective: Patient is awake, alert, no acute distress. Patient recently underwent Arterial Doppler US and Bone Scan ... please see dictated report. Patient for colonoscopy today. Objective - Results Result Diagrams: 03/07/17 06:30 03/07/17 06:30 Recent Labs: Laboratory Last Values WBC 6.9 Th/cmm (4.8-10.8) 03/05/17 10:03 RBC 3.36 Mil/cmm (3.80-5.20) L 03/05/17 10:03 Hgb 9.3 gm/dL (12-16) L 03/05/17 10:03 Hct 29.9 % (41.0-60) L D 03/05/17 10:03 MCV 89.3 fl (81-100) 03/05/17 10:03 MCH 27.7 pg (27.0-31.0) 03/05/17 10:03 MCHC Differential 31.0 pg (28.0-36.0) 03/05/17 10:03 RDW 19.9 % (11.5-20.0) 03/05/17 10:03 Plt Count 209 Th/cmm (150-400) 03/05/17 10:03 MPV 11.4 fl 03/05/17 10:03 Neutrophils % 78.4 % (40.0-80.0) 03/05/17 10:03 Band Neutrophils % 8 % (0-10) 03/04/17 05:35 Lymphocytes % 11.4 % (20.0-50.0) L 03/05/17 10:03 Monocytes % 7.1 % (2.0-10.0) 03/05/17 10:03 Eosinophils % 2.5 % (0.0-5.0) 03/05/17 10:03 Basophils % 0.6 % (0.0-2.0) 03/05/17 10:03 Neutrophils (Manual) 68 % (40-80) 03/04/17 05:35 Lymphocytes 17 % (20-50) L 03/04/17 05:35 Monocytes 3 % (2-10) 03/04/17 05:35 Eosinophils 3 % (0-5) 03/04/17 05:35 Nucleated RBCs 1.0 % (0-0) H 03/04/17 05:35 Anisocytosis 1+ 03/04/17 05:35 PT 11.9 SECONDS (9.5-11.5) H 03/03/17 09:00 INR 1.13 (0.5-1.4) 03/03/17 09:00 PTT (Actin FS) 36.6 SECONDS (26.0-38.0) 03/03/17 09:00 Sodium 154 mEq/L (136-145) H 03/05/17 09:30 Potassium 4.0 mEq/L (3.5-5.1) 03/05/17 09:30 Chloride 120 mEq/L (98-107) H 03/05/17 09:30 Carbon Dioxide 29.6 mEq/L (21.0-31.0) 03/05/17 09:30 Anion Gap 8.4 (7.0-16.0) 03/05/17 09:30 BUN 48 mg/dL (7-25) H 03/05/17 09:30 Creatinine 1.2 mg/dL (0.6-1.2) 03/05/17 09:30 Est GFR ( Amer) TNP 03/05/17 09:30 Est GFR (Non-Af Amer) TNP 03/05/17 09:30 BUN/Creatinine Ratio 40.0 03/05/17 09:30 Glucose 243 mg/dL (70-105) H 03/05/17 09:30 POC Glucose 229 MG/DL (70 - 105) H 03/05/17 16:32 Hemoglobin A1c % 10.2 % (4.0-6.0) H 03/03/17 09:00 Whole Bld Lactic Acid 2.20 mmol/L (0.60-1.99) H* 03/04/17 13:00 Calcium 9.4 mg/dL (8.6-10.3) 03/05/17 09:30 Iron 33 ug/dL (27-139) 03/03/17 09:00 TIBC 170 ug/dL (250-450) L 03/03/17 09:00 Iron Saturation 19 % (15-55) 03/03/17 09:00 Unsaturated IBC 137 ug/dL (118-369) 03/03/17 09:00 Ferritin 1421 ng/mL (15-150) H 03/03/17 09:00 Total Bilirubin 0.4 mg/dL (0.3-1.0) 03/05/17 09:30 Direct Bilirubin 0.06 mg/dL (0.0-0.2) 03/03/17 09:00 AST 20 U/L (13-39) 03/05/17 09:30 ALT 9 U/L (7-52) 03/05/17 09:30 Alkaline Phosphatase 105 U/L (34-104) H 03/05/17 09:30 C-Reactive Protein 33.4 mg/dL (0.0-0.9) H 03/03/17 09:00 B-Natriuretic Peptide 4190.0 pg/mL (5.0-100.0) H 03/03/17 09:00 Total Protein 7.7 gm/dL (6.0-8.3) 03/05/17 09:30 Albumin 2.4 gm/dL (3.7-5.3) L 03/05/17 09:30 Globulin 5.3 gm/dL 03/05/17 09:30 Albumin/Globulin Ratio 0.5 (1.0-1.8) L 03/05/17 09:30 Triglycerides 134 mg/dL (<150) 03/03/17 09:00 Cholesterol 49 mg/dL (<200) 03/03/17 09:00 LDL Cholesterol Direct 9 mg/dL (75-193) L 03/03/17 09:00 HDL Cholesterol 17 mg/dL (23-92) L 03/03/17 09:00 TSH 4.04 uIU/ml (0.34-5.60) 03/03/17 09:00 Urine Source CATH 03/03/17 09:59 Urine Color YELLOW 03/03/17 09:59 Urine Clarity CLOUDY (CLEAR) H 03/03/17 09:59 Urine pH 6.0 (4.6 - 8.0) 03/03/17 09:59 Ur Specific [place] 1.010 (1.005-1.030) 03/03/17 09:59 Urine Protein 30 mg/dL (NEGATIVE) H 03/03/17 09:59 Urine Glucose (UA) 100 mg/dL (NEGATIVE) H 03/03/17 09:59 Urine Ketones NEGATIVE mg/dL (NEGATIVE) 01/22/18 09:59 Urine Blood LARGE (NEGATIVE) H 03/03/17 09:59 Urine Nitrate NEGATIVE (NEGATIVE) 03/03/17 09:59 Urine Bilirubin NEGATIVE (NEGATIVE) 03/03/17 09:59 Urine Urobilinogen 0.2 E.U./dL (0.2 - 1.0) 03/03/17 09:59 Ur Leukocyte Esterase LARGE (NEGATIVE) H 03/03/17 09:59 Urine RBC 5-10 /hpf (0-5) H 03/03/17 09:59 Urine WBC 10-25 /hpf (0-5) H 03/03/17 09:59 Ur Epithelial Cells MODERATE /lpf (FEW) 03/03/17 09:59 Urine Bacteria 3+ /hpf (NONE SEEN) H 03/03/17 09:59 Urine Yeast MODERATE /hpf (NONE SEEN) H 03/03/17 09:59 Stool Occult Blood NEGATIVE (NEGATIVE) 03/04/17 09:30 Blood Type B POSITIVE 03/03/17 09:00 Antibody Screen NEGATIVE 03/03/17 09:00 Crossmatch See Detail 03/03/17 09:00 - Physical Exam Vitals and I&O: Vital Signs Temp 97.8 F 03/06/17 03:51 Pulse 81 03/06/17 07:24 Resp 18 03/06/17 07:24 BP 101/49 03/06/17 03:51 Pulse Ox 97 03/06/17 07:24 Intake & Output 03/05/17 03/06/17 03/06/17 18:59 06:59 18:59 Intake Total 450 1050 Balance 450 1050 Weight (lbs) 68.492 kg Intake: Intake, IV Amount 450 1050 Dextrose 5% 1,000 ml @ 50 1000 mls/hr IV .Q20H [facility] Rx#: [id number] Levofloxacin 500mg/100mL 100 500 mg In 100 ml @ 100 mls/hr IV Q24H [facility] Rx#: [id number] Piperacillin Sodium/ 100 50 Tazobact 3.375 gm In Sodium Chloride 0.9% 50 ml @ 100 mls/hr IV Q6HR [facility] Rx#:[id number] Vancomycin HCl 1 gm In 250 Sodium Chloride 0.9% 250 ml @ 165 mls/hr IV Q24HR@ 0900 [facility] Rx#:[id number] Other: Stool Characteristics Soft Soft Formed Formed Liquid Liquid Active Medications: Current Medications Carbidopa/Levodopa (Sinemet 25mg-100 Mg) 1 tab GT Q8HR [facility] Stop: 05/02/17 12:59 Last Admin: 03/06/17 05:20 Dose: 1 tab [place] Oil/[place] Balsam/Trypsin (Venelex) 1 appl TP DAILY [facility] Stop: 05/04/17 08:59 Last Admin: 03/05/17 18:06 Dose: 1 appl Docusate Sodium (Colace) 100 mg PO BID [facility] Stop: 05/02/17 16:59 Last Admin: 03/05/17 16:41 Dose: 100 mg Donepezil HCl (Aricept) 10 mg GT HS [facility] Stop: 05/02/17 20:59 Last Admin: 03/05/17 22:23 Dose: 10 mg Ferrous Sulfate (Iron) 325 mg PO BID [facility] Stop: 05/03/17 16:59 Last Admin: 03/05/17 16:41 Dose: 325 mg Heparin Sodium (Porcine) (Heparin) 5,000 units SUBQ Q12HR [facility] Stop: 05/02/17 20:59 Last Admin: 03/05/17 22:23 Dose: 5,000 units Dextrose (D5w) 1,000 mls @ 50 mls/hr IV .Q20H [facility] Stop: 05/03/17 08:29 Last Admin: 03/06/17 05:55 Dose: 50 mls/hr Levofloxacin (Levaquin Pb) 500 mg in 100 mls @ 100 mls/hr IV Q24H [facility] Stop: 05/03/17 10:59 Last Infusion: 03/05/17 13:09 Dose: Infused Piperacillin Sod/Tazobactam (Sod 3.375 gm/ Sodium Chloride) 50 mls @ 100 mls/ hr IV Q6HR [facility] Stop: 05/03/17 11:59 Last Admin: 03/06/17 05:20 Dose: 100 mls/hr Vancomycin HCl 1 gm/ Sodium (Chloride) 250 mls @ 165 mls/hr IV Q24HR@0900 [facility] Stop: 05/04/17 09:59 Last Infusion: 03/05/17 11:28 Dose: Infused Insulin Aspart (Novolog Insulin Sliding Scale) 0 units SUBQ ACHS [facility] PRN Reason: Protocol Stop: 05/03/17 11:29 Last Admin: 03/06/17 07:01 Dose: 4 units Insulin Detemir (Levemir Insulin) 25 units SUBQ HS [facility] PRN Reason: Protocol Stop: 05/02/17 20:59 Last Admin: 03/05/17 22:30 Dose: 25 units Insulin Detemir (Levemir Insulin) 5 units SUBQ QAM [facility] PRN Reason: Protocol Stop: 05/04/17 08:59 Last Admin: 03/05/17 09:54 Dose: 5 units Lactobacillus Rhamnosus (Culturelle 15b) 1 each PO DAILY [facility] Stop: 05/05/17 08:59 Levetiracetam (Keppra) 500 mg PO Q8HR [facility] Stop: 05/02/17 12:59 Last Admin: 03/06/17 05:20 Dose: 500 mg Memantine (Namenda) 10 mg GT BID [facility] Stop: 05/02/17 16:59 Last Admin: 03/05/17 16:41 Dose: 10 mg Miscellaneous (Vancomycin Iv Per Pharmacy) 1 [facility] PRN PRN PRN Reason: PROTOCOL Stop: 05/03/17 08:30 Miscellaneous (Probiotic Screen) 1 [facility] PRN PRN PRN Reason: PROTOCOL Stop: 05/04/17 16:59 Pantoprazole Sodium (Protonix) 40 mg IVP DAILY [facility] Stop: 05/04/17 09:59 Last Admin: 03/05/17 12:11 Dose: 40 mg Risperidone (Risperdal) 0.5 mg PO BID [facility] Stop: 05/02/17 16:59 Last Admin: 03/05/17 16:41 Dose: 0.5 mg General: Alert, No acute distress HEENT: Atraumatic, PERRLA, EOMI Neck: Supple, JVD Cardiovascular: Regular rate, Normal S1, Normal S2 Lungs: Clear to auscultation Abdomen: Bowel sounds, Soft Extremities: Clubbing Neurological: Normal gait, Normal speech - Procedures Procedures: Procedures Procedure Code Date CHANGE GASTROSTOMY TUBE 15723 06/25/12 INJECT/INFUSE NEC 99.29 09/11/07 INSERT PICC CATH 54118 12/19/11 INSERT TUNNELED CV CATH 43058 07/08/07 OTHER ENDOSCOPY OF SM INTEST 45.13 05/05/10 PLACE NEEDLE IN VEIN 82154 07/08/07 REPLACE G/C TUBE PERC 46253 10/19/11 REPLACE GASTROSTOMY TUBE 97.02 06/25/12 TRANSABDOM ENDOSC OF SM INTES 45.11 09/11/07 VENOUS CATHETERIZATION NEC 38.93 12/19/11 VENOUS PUNCTURE NEC 38.99 07/08/07 Assessment/Plan - Assessment Assessment: sepsis vs urosepsis hypernatremia elevated BNP acute on chronic anemia r/o GIB diabetes mellitus type 2 schizophrenia CVA w/ right sided hemiplegia h/o UTI s/p colostomy parkinson's disease hypothyroidism vascular dementia dysphagia CHF CAD peripheral vascular disease osteomyelitis of the sacrum ileus - Plan Plan: General Surgery consult -- Dr. Bates..Will need surgical procedure for possible BKA. ID consult -- Dr. Regan Garcia Cardiology consult -- Dr. Garcia GI Consult -- Dr. Boone repeat CBC, CMP continue IV anitbiotics .. IV Zosyn, IV Vancomycin Blood culture pending, Urine Cultures pending Nutritional Asmnt/Malnutr-PDOC - Dietary Evaluation Malnutrition Findings (Please click <Entered> for more info): Nutritional Asmnt/Malnutrition Start: 03/04/17 18: 06 Text: Status: Complete Freq: Document 03/04/17 18:06 LCHENG (Rec: 03/04/17 18:19 LCHENG [email or web address]) Nutritional Asmnt/Malnutrition Patient General Information Nutritional Screening High Risk Consult Diagnosis urosepsis, dehydration Pertinent Medical Hx/Surgical Hx DM, schizophrenia, CVA, chronic anemia, dysphagia, vascular dementia, s/p colostomy, parkinson, CHF, CAD , UTI Subjective Information Consult received for florence Hamilton . Pt seen resting in bed at time of visit. Verified TF runnign at 55ml/hr at this time. Current Diet Order/ Nutrition Support Diabetisource 55ml/hr x 20hr Pertinent Medications D5w, colace, Iron, novolog, levemir, levaquin, piperacillin, protinix, vancomycin Pertinent Labs 03/04 Na 159, K 3.9, Cl 123, BUN 59, CR 1.1, Glucose 296, POC 245-363, Ca 9.4 03/03 A1c 10.2 Nutritional Hx/Data Height 1.63 m Height (Calculated Centimeters) 162.6 Current Weight (lbs) 68.039 kg Weight (Calculated Kilograms) 68.0 Weight (Calculated Grams) 65074.9 [place] Body Weight 120 % [place] Body Weight 125 Body Mass Index (BMI) 25.7 Weight Status Overweight GI Symptoms GI Symptoms None Last BM 03/03 x 3 Difficult in: None Skin Integrity/Comment: decubitus ulceration to sacrum Estimated Nutritional Goals BEE in Kcals: Adj wt of IBW Calories/Kcals/Kg 23-27 based on adj wt 58kg Kcals Calculated 8601-4620 considering bedbound Protein: Adj wt of IBW Protein g/k-1.2 Protein Calculated 58-70 Fluid: ml 1334-1566ml (1ml/kcal) Nutritional Problem 1. Problem Problem altered nutrition related lab values Etiology imbalanced electrolytes/fluid, hx of DM Signs/Symptoms: Na 159, Cl 123, BUN 59, Glucose 296, POC 245-363 Malnutrition Alert Protein-Calorie Malnutrition N/A Is there a minimum of two criteria No selected? Query Text:Check all the applicable criteria. A minimum of two criteria are recommended for diagnosis of either severe or non-severe malnutrition. Intervention/Recommendation Comments 1. Continue with current TF regimen. It provides 1320kcal, 66g protein, meeting 100% of nutritional needs 2. Monitor TF rate, tolerance, wt weekly, skin integrity and labs 3. F/U as moderate risk in 3-5 days, 03/07-03/09 Expected Outcomes/Goals Expected Outcomes/Goals 1. Pt to meet at least 75% of nutritional needs via nutrition support with tolerance 2. Wt stability, skin to remain intact, labs to approach WNL.
[2017-03-06] MEDS: Ferrous Sulfate 325 MG TAB PO SCH ×2 (09:15→17:32)
[2017-03-06] MEDS: Lactobacillus Rhamnosus GG 15 Billion CFU CAP.SPRINK PO SCH (09:15)
[2017-03-06] MEDS: Multivitamin w/ Minerals Tab GT SCH (09:15)
[2017-03-06] MEDS: Venelex 60gm Tube TP SCH (09:15)
--- NOTE | 2017-03-06 09:38 | GI Progress Note ---
Subjective - Review of Systems Service Date: 03/06/17 Subjective: Green stool in colostomy Objective - Results Result Diagrams: 03/06/17 08:00 03/05/17 09:30 Recent Labs: Laboratory Last Values WBC 7.9 Th/cmm (4.8-10.8) 03/06/17 08:00 RBC 3.24 Mil/cmm (3.80-5.20) L 03/06/17 08:00 Hgb 9.0 gm/dL (12-16) L 03/06/17 08:00 Hct 28.9 % (41.0-60) L 03/06/17 08:00 MCV 89.3 fl (81-100) 03/06/17 08:00 MCH 27.6 pg (27.0-31.0) 03/06/17 08:00 MCHC Differential 31.0 pg (28.0-36.0) 03/06/17 08:00 RDW 19.5 % (11.5-20.0) 03/06/17 08:00 Plt Count 234 Th/cmm (150-400) 03/06/17 08:00 MPV 12.3 fl 03/06/17 08:00 Neutrophils % 78.5 % (40.0-80.0) 03/06/17 08:00 Band Neutrophils % 8 % (0-10) 03/04/17 05:35 Lymphocytes % 10.0 % (20.0-50.0) L 03/06/17 08:00 Monocytes % 8.8 % (2.0-10.0) 03/06/17 08:00 Eosinophils % 2.5 % (0.0-5.0) 03/06/17 08:00 Basophils % 0.2 % (0.0-2.0) 03/06/17 08:00 Neutrophils (Manual) 68 % (40-80) 03/04/17 05:35 Lymphocytes 17 % (20-50) L 03/04/17 05:35 Monocytes 3 % (2-10) 03/04/17 05:35 Eosinophils 3 % (0-5) 03/04/17 05:35 Nucleated RBCs 1.0 % (0-0) H 03/04/17 05:35 Anisocytosis 1+ 03/04/17 05:35 PT 11.9 SECONDS (9.5-11.5) H 03/03/17 09:00 INR 1.13 (0.5-1.4) 03/03/17 09:00 PTT (Actin FS) 36.6 SECONDS (26.0-38.0) 03/03/17 09:00 Sodium 154 mEq/L (136-145) H 03/05/17 09:30 Potassium 4.0 mEq/L (3.5-5.1) 03/05/17 09:30 Chloride 120 mEq/L (98-107) H 03/05/17 09:30 Carbon Dioxide 29.6 mEq/L (21.0-31.0) 03/05/17 09:30 Anion Gap 8.4 (7.0-16.0) 03/05/17 09:30 BUN 48 mg/dL (7-25) H 03/05/17 09:30 Creatinine 1.2 mg/dL (0.6-1.2) 03/05/17 09:30 Est GFR ( Amer) TNP 03/05/17 09:30 Est GFR (Non-Af Amer) TNP 03/05/17 09:30 BUN/Creatinine Ratio 40.0 03/05/17 09:30 Glucose 243 mg/dL (70-105) H 03/05/17 09:30 POC Glucose 229 MG/DL (70 - 105) H 03/05/17 16:32 Hemoglobin A1c % 10.2 % (4.0-6.0) H 03/03/17 09:00 Whole Bld Lactic Acid 2.20 mmol/L (0.60-1.99) H* 03/04/17 13:00 Calcium 9.4 mg/dL (8.6-10.3) 03/05/17 09:30 Iron 33 ug/dL (27-139) 03/03/17 09:00 TIBC 170 ug/dL (250-450) L 03/03/17 09:00 Iron Saturation 19 % (15-55) 03/03/17 09:00 Unsaturated IBC 137 ug/dL (118-369) 03/03/17 09:00 Ferritin 1421 ng/mL (15-150) H 03/03/17 09:00 Total Bilirubin 0.4 mg/dL (0.3-1.0) 03/05/17 09:30 Direct Bilirubin 0.06 mg/dL (0.0-0.2) 03/03/17 09:00 AST 20 U/L (13-39) 03/05/17 09:30 ALT 9 U/L (7-52) 03/05/17 09:30 Alkaline Phosphatase 105 U/L (34-104) H 03/05/17 09:30 C-Reactive Protein 33.4 mg/dL (0.0-0.9) H 03/03/17 09:00 B-Natriuretic Peptide 4190.0 pg/mL (5.0-100.0) H 03/03/17 09:00 Total Protein 7.7 gm/dL (6.0-8.3) 03/05/17 09:30 Albumin 2.4 gm/dL (3.7-5.3) L 03/05/17 09:30 Globulin 5.3 gm/dL 03/05/17 09:30 Albumin/Globulin Ratio 0.5 (1.0-1.8) L 03/05/17 09:30 Triglycerides 134 mg/dL (<150) 03/03/17 09:00 Cholesterol 49 mg/dL (<200) 03/03/17 09:00 LDL Cholesterol Direct 9 mg/dL (75-193) L 03/03/17 09:00 HDL Cholesterol 17 mg/dL (23-92) L 03/03/17 09:00 TSH 4.04 uIU/ml (0.34-5.60) 03/03/17 09:00 Urine Source CATH 03/03/17 09:59 Urine Color YELLOW 03/03/17 09:59 Urine Clarity CLOUDY (CLEAR) H 03/03/17 09:59 Urine pH 6.0 (4.6 - 8.0) 03/03/17 09:59 Ur Specific [place] 1.010 (1.005-1.030) 03/03/17 09:59 Urine Protein 30 mg/dL (NEGATIVE) H 03/03/17 09:59 Urine Glucose (UA) 100 mg/dL (NEGATIVE) H 03/03/17 09:59 Urine Ketones NEGATIVE mg/dL (NEGATIVE) 03/03/17 09:59 Urine Blood LARGE (NEGATIVE) H 03/03/17 09:59 Urine Nitrate NEGATIVE (NEGATIVE) 03/03/17 09:59 Urine Bilirubin NEGATIVE (NEGATIVE) 03/03/17 09:59 Urine Urobilinogen 0.2 E.U./dL (0.2 - 1.0) 03/03/17 09:59 Ur Leukocyte Esterase LARGE (NEGATIVE) H 03/03/17 09:59 Urine RBC 5-10 /hpf (0-5) H 03/03/17 09:59 Urine WBC 10-25 /hpf (0-5) H 03/03/17 09:59 Ur Epithelial Cells MODERATE /lpf (FEW) 03/03/17 09:59 Urine Bacteria 3+ /hpf (NONE SEEN) H 03/03/17 09:59 Urine Yeast MODERATE /hpf (NONE SEEN) H 03/03/17 09:59 Stool Occult Blood NEGATIVE (NEGATIVE) 03/04/17 09:30 Vancomycin Trough 24.6 ug/mL (10-20) H 03/06/17 08:00 Blood Type B POSITIVE 03/03/17 09:00 Antibody Screen NEGATIVE 03/03/17 09:00 Crossmatch See Detail 03/03/17 09:00 - Physical Exam Vitals and I&O: Vital Signs Temp 96.2 F 03/06/17 08:00 Pulse 78 03/06/17 08:00 Resp 20 03/06/17 08:00 BP 96/38 03/06/17 08:00 Pulse Ox 100 03/06/17 08:00 Intake & Output 03/05/17 03/06/17 03/06/17 18:59 06:59 18:59 Intake Total 450 1050 Balance 450 1050 Weight (lbs) 68.492 kg Intake: Intake, IV Amount 450 1050 Dextrose 5% 1,000 ml @ 50 1000 mls/hr IV .Q20H [facility] Rx#: [id number] Levofloxacin 500mg/100mL 100 500 mg In 100 ml @ 100 mls/hr IV Q24H [facility] Rx#: [id number] Piperacillin Sodium/ 100 50 Tazobact 3.375 gm In Sodium Chloride 0.9% 50 ml @ 100 mls/hr IV Q6HR [facility] Rx#:[id number] Vancomycin HCl 1 gm In 250 Sodium Chloride 0.9% 250 ml @ 165 mls/hr IV Q24HR@ 0900 [facility] Rx#:[id number] Other: Stool Characteristics Soft Soft Formed Formed Liquid Liquid Active Medications: Current Medications Carbidopa/Levodopa (Sinemet 25mg-100 Mg) 1 tab GT Q8HR [facility] Stop: 05/02/17 12:59 Last Admin: 03/06/17 05:20 Dose: 1 tab [place] Oil/[place] Balsam/Trypsin (Venelex) 1 appl TP DAILY [facility]ACK[facility] Stop: 05/04/17 08:59 Last Admin: 03/06/17 09:15 Dose: 1 appl Docusate Sodium (Colace) 100 mg PO BID [facility] Stop: 05/02/17 16:59 Last Admin: 03/06/17 09:15 Dose: 100 mg Donepezil HCl (Aricept) 10 mg GT HS [facility] Stop: 05/02/17 20:59 Last Admin: 03/05/17 22:23 Dose: 10 mg Ferrous Sulfate (Iron) 325 mg PO BID [facility] Stop: 05/03/17 16:59 Last Admin: 03/06/17 09:15 Dose: 325 mg Heparin Sodium (Porcine) (Heparin) 5,000 units SUBQ Q12HR [facility] Stop: 05/02/17 20:59 Last Admin: 03/06/17 09:15 Dose: 5,000 units Dextrose (D5w) 1,000 mls @ 50 mls/hr IV .Q20H [facility] Stop: 05/03/17 08:29 Last Admin: 03/06/17 05:55 Dose: 50 mls/hr Levofloxacin (Levaquin Pb) 500 mg in 100 mls @ 100 mls/hr IV Q24H [facility] Stop: 05/03/17 10:59 Last Infusion: 03/05/17 13:09 Dose: Infused Piperacillin Sod/Tazobactam (Sod 3.375 gm/ Sodium Chloride) 50 mls @ 100 mls/ hr IV Q6HR [facility] Stop: 05/03/17 11:59 Last Admin: 03/06/17 05:20 Dose: 100 mls/hr Vancomycin HCl 1 gm/ Sodium (Chloride) 250 mls @ 165 mls/hr IV Q24HR@0900 [facility] Stop: 05/04/17 09:59 Last Admin: 03/06/17 08:33 Dose: 165 mls/hr Insulin Aspart (Novolog Insulin Sliding Scale) 0 units SUBQ ACHS [facility] PRN Reason: Protocol Stop: 05/03/17 11:29 Last Admin: 03/06/17 07:01 Dose: 4 units Insulin Detemir (Levemir Insulin) 25 units SUBQ HS [facility] PRN Reason: Protocol Stop: 05/02/17 20:59 Last Admin: 03/05/17 22:30 Dose: 25 units Insulin Detemir (Levemir Insulin) 5 units SUBQ QAM [facility] PRN Reason: Protocol Stop: 05/04/17 08:59 Last Admin: 03/05/17 09:54 Dose: 5 units Lactobacillus Rhamnosus (Culturelle 15b) 1 each PO DAILY [facility] Stop: 05/05/17 08:59 Last Admin: 03/06/17 09:15 Dose: 1 each Levetiracetam (Keppra) 500 mg PO Q8HR [facility] Stop: 05/02/17 12:59 Last Admin: 03/06/17 05:20 Dose: 500 mg Memantine (Namenda) 10 mg GT BID [facility] Stop: 05/02/17 16:59 Last Admin: 03/06/17 09:15 Dose: 10 mg Miscellaneous (Vancomycin Iv Per Pharmacy) 1 [facility] PRN PRN PRN Reason: PROTOCOL Stop: 05/03/17 08:30 Miscellaneous (Probiotic Screen) 1 [facility] PRN PRN PRN Reason: PROTOCOL Stop: 05/04/17 16:59 Pantoprazole Sodium (Protonix) 40 mg IVP DAILY [facility] Stop: 05/04/17 09:59 Last Admin: 03/06/17 09:15 Dose: 40 mg Risperidone (Risperdal) 0.5 mg PO BID [facility] Stop: 05/02/17 16:59 Last Admin: 03/06/17 09:15 Dose: 0.5 mg General: Alert, No acute distress HEENT: Atraumatic, PERRLA Neck: Supple, JVD Cardiovascular: Regular rate Lungs: Clear to auscultation Abdomen: Bowel sounds, Soft, Other (colostomy with green stool, no rebound or guarding) - Procedures Procedures: Procedures Procedure Code Date CHANGE GASTROSTOMY TUBE 27966 06/25/12 INJECT/INFUSE NEC 99.29 09/11/07 INSERT PICC CATH 61136 12/19/11 INSERT TUNNELED CV CATH 92029 07/08/07 OTHER ENDOSCOPY OF SM INTEST 45.13 05/05/10 PLACE NEEDLE IN VEIN 96854 05/28/08 REPLACE G/C TUBE PERC 04055 10/19/11 REPLACE GASTROSTOMY TUBE 97.02 06/25/12 TRANSABDOM ENDOSC OF SM INTES 45.11 09/11/07 VENOUS CATHETERIZATION NEC 38.93 12/19/11 VENOUS PUNCTURE NEC 38.99 07/08/07 Assessment/Plan - Assessment Assessment: # Schizophrenia # Dysphagia # Dementia # Previous sigmoid volvulus s/p colostomy # Bilateral feet ischemia # Anemia There is no overt bleeding, and pt did just have endoscopic exam in 01/2017 at [facility] (by report). Thus the utility of repeating EGD/colo now in the absence of overt bleeding would be low. FOB is negative. Suspect chronic anemia is multifactorial, and is likely to have chronic illness and nutritional component as well. Iron studies consistent with anemia of chronic disease. Plan: - cont G tube feeding - cycle hgb, transfuse to keep > 7 - management of ischemic feet as per surgery - endoscopy not planned at this point unless there is overt bleeding GI to see as needed, please call with any further questions
[2017-03-06 09:42] LABS: ALB/GLOB RATIO 0.5 (1.0-1.8); ALBUMIN 2.6 gm/dL (3.7-5.3); ALKALINE PHOSPHATASE 116 U/L (34-104); ANION GAP 13.7 (7.0-16.0); BILIRUBIN,TOTAL 0.5 mg/dL (0.3-1.0); BUN - UREA NITROGEN 39 mg/dL (7-25); CALCIUM SERUM 9.4 mg/dL (8.6-10.3); CARBON DIOXIDE 26.9 mEq/L (21.0-31.0); CHLORIDE 118 mEq/L (98-107); CREATININE - SERUM 1.2 mg/dL (0.6-1.2); GLUCOSE 218 mg/dL (70-105); POTASSIUM SERUM 3.6 mEq/L (3.5-5.1); SGOT 19 U/L (13-39); SGPT/ALT 7 U/L (7-52); SODIUM SERUM 155 mEq/L (136-145); TOTAL PROTEIN,SERUM 8.1 gm/dL (6.0-8.3)
[2017-03-06] MEDS: Insulin Detemir 100 units/mL 10mL Vial SUBQ SCH ×2 (09:46→22:28)
[2017-03-06] MEDS: Levofloxacin 500mg/100mL 500 MG/100 ML BAG IV SCH (10:56)
--- NOTE | 2017-03-06 13:23 | General Progress Note ---
Subjective - Review of Systems Service Date: 03/07/17 Events since last encounter: patient does not have next of kin recommendations: bilateral BKA and debridement of sacral decubitus ulcer and wound vac 2 doctors need to sign for medicaL neccesity Objective - Results Result Diagrams: 03/06/17 08:00 03/06/17 08:00 Recent Labs: Laboratory Last Values WBC 7.9 Th/cmm (4.8-10.8) 03/06/17 08:00 RBC 3.24 Mil/cmm (3.80-5.20) L 03/06/17 08:00 Hgb 9.0 gm/dL (12-16) L 03/06/17 08:00 Hct 28.9 % (41.0-60) L 03/06/17 08:00 MCV 89.3 fl (81-100) 03/06/17 08:00 MCH 27.6 pg (27.0-31.0) 03/06/17 08:00 MCHC Differential 31.0 pg (28.0-36.0) 03/06/17 08:00 RDW 19.5 % (11.5-20.0) 03/06/17 08:00 Plt Count 234 Th/cmm (150-400) 03/06/17 08:00 MPV 12.3 fl 03/06/17 08:00 Neutrophils % 78.5 % (40.0-80.0) 03/06/17 08:00 Band Neutrophils % 8 % (0-10) 03/04/17 05:35 Lymphocytes % 10.0 % (20.0-50.0) L 03/06/17 08:00 Monocytes % 8.8 % (2.0-10.0) 03/06/17 08:00 Eosinophils % 2.5 % (0.0-5.0) 03/06/17 08:00 Basophils % 0.2 % (0.0-2.0) 03/06/17 08:00 Neutrophils (Manual) 68 % (40-80) 03/04/17 05:35 Lymphocytes 17 % (20-50) L 03/04/17 05:35 Monocytes 3 % (2-10) 03/04/17 05:35 Eosinophils 3 % (0-5) 03/04/17 05:35 Nucleated RBCs 1.0 % (0-0) H 03/04/17 05:35 Anisocytosis 1+ 03/04/17 05:35 PT 11.9 SECONDS (9.5-11.5) H 03/03/17 09:00 INR 1.13 (0.5-1.4) 03/03/17 09:00 PTT (Actin FS) 36.6 SECONDS (26.0-38.0) 03/03/17 09:00 Sodium 155 mEq/L (136-145) H 03/06/17 08:00 Potassium 3.6 mEq/L (3.5-5.1) 03/06/17 08:00 Chloride 118 mEq/L (98-107) H 03/06/17 08:00 Carbon Dioxide 26.9 mEq/L (21.0-31.0) 03/06/17 08:00 Anion Gap 13.7 (7.0-16.0) 03/06/17 08:00 BUN 39 mg/dL (7-25) H 03/06/17 08:00 Creatinine 1.2 mg/dL (0.6-1.2) 03/06/17 08:00 Est GFR ( Amer) TNP 03/06/17 08:00 Est GFR (Non-Af Amer) TNP 03/06/17 08:00 BUN/Creatinine Ratio 32.5 03/06/17 08:00 Glucose 218 mg/dL (70-105) H 03/06/17 08:00 POC Glucose 229 MG/DL (70 - 105) H 03/05/17 16:32 Hemoglobin A1c % 10.2 % (4.0-6.0) H 03/03/17 09:00 Whole Bld Lactic Acid 2.20 mmol/L (0.60-1.99) H* 03/04/17 13:00 Calcium 9.4 mg/dL (8.6-10.3) 03/06/17 08:00 Iron 33 ug/dL (27-139) 03/03/17 09:00 TIBC 170 ug/dL (250-450) L 03/03/17 09:00 Iron Saturation 19 % (15-55) 03/03/17 09:00 Unsaturated IBC 137 ug/dL (118-369) 03/03/17 09:00 Ferritin 1421 ng/mL (15-150) H 03/03/17 09:00 Total Bilirubin 0.5 mg/dL (0.3-1.0) 03/06/17 08:00 Direct Bilirubin 0.06 mg/dL (0.0-0.2) 03/03/17 09:00 AST 19 U/L (13-39) 03/06/17 08:00 ALT 7 U/L (7-52) 03/06/17 08:00 Alkaline Phosphatase 116 U/L (34-104) H 03/06/17 08:00 C-Reactive Protein 33.4 mg/dL (0.0-0.9) H 03/03/17 09:00 B-Natriuretic Peptide 4190.0 pg/mL (5.0-100.0) H 03/03/17 09:00 Total Protein 8.1 gm/dL (6.0-8.3) 03/06/17 08:00 Albumin 2.6 gm/dL (3.7-5.3) L 03/06/17 08:00 Globulin 5.5 gm/dL 03/06/17 08:00 Albumin/Globulin Ratio 0.5 (1.0-1.8) L 03/06/17 08:00 Triglycerides 134 mg/dL (<150) 03/03/17 09:00 Cholesterol 49 mg/dL (<200) 03/03/17 09:00 LDL Cholesterol Direct 9 mg/dL (75-193) L 03/03/17 09:00 HDL Cholesterol 17 mg/dL (23-92) L 03/03/17 09:00 TSH 4.04 uIU/ml (0.34-5.60) 03/03/17 09:00 Urine Source CATH 03/03/17 09:59 Urine Color YELLOW 03/03/17 09:59 Urine Clarity CLOUDY (CLEAR) H 03/03/17 09:59 Urine pH 6.0 (4.6 - 8.0) 03/03/17 09:59 Ur Specific [place] 1.010 (1.005-1.030) 03/03/17 09:59 Urine Protein 30 mg/dL (NEGATIVE) H 03/03/17 09:59 Urine Glucose (UA) 100 mg/dL (NEGATIVE) H 03/03/17 09:59 Urine Ketones NEGATIVE mg/dL (NEGATIVE) 03/03/17 09:59 Urine Blood LARGE (NEGATIVE) H 03/03/17 09:59 Urine Nitrate NEGATIVE (NEGATIVE) 03/03/17 09:59 Urine Bilirubin NEGATIVE (NEGATIVE) 03/03/17 09:59 Urine Urobilinogen 0.2 E.U./dL (0.2 - 1.0) 03/03/17 09:59 Ur Leukocyte Esterase LARGE (NEGATIVE) H 03/03/17 09:59 Urine RBC 5-10 /hpf (0-5) H 03/03/17 09:59 Urine WBC 10-25 /hpf (0-5) H 03/03/17 09:59 Ur Epithelial Cells MODERATE /lpf (FEW) 03/03/17 09:59 Urine Bacteria 3+ /hpf (NONE SEEN) H 03/03/17 09:59 Urine Yeast MODERATE /hpf (NONE SEEN) H 03/03/17 09:59 Stool Occult Blood NEGATIVE (NEGATIVE) 03/04/17 09:30 Vancomycin Trough 24.6 ug/mL (10-20) H 03/06/17 08:00 Blood Type B POSITIVE 03/03/17 09:00 Antibody Screen NEGATIVE 03/03/17 09:00 Crossmatch See Detail 03/03/17 09:00 - Physical Exam Vitals and I&O: Vital Signs Temp 96.2 F 03/06/17 08:00 Pulse 78 03/06/17 08:00 Resp 20 03/06/17 08:00 BP 96/38 03/06/17 08:00 Pulse Ox 100 03/06/17 08:00 Intake & Output 03/05/17 03/06/17 03/06/17 18:59 06:59 18:59 Intake Total 450 1100 Balance 450 1100 Weight (lbs) 68.492 kg Intake: Intake, IV Amount 450 1100 Dextrose 5% 1,000 ml @ 50 1000 mls/hr IV .Q20H [facility] Rx#: [id number] Levofloxacin 500mg/100mL 100 500 mg In 100 ml @ 100 mls/hr IV Q24H [facility] Rx#: [id number] Piperacillin Sodium/ 100 100 Tazobact 3.375 gm In Sodium Chloride 0.9% 50 ml @ 100 mls/hr IV Q6HR [facility] Rx#:[id number] Vancomycin HCl 1 gm In 250 Sodium Chloride 0.9% 250 ml @ 165 mls/hr IV Q24HR@ 0900 [facility] Rx#:[id number] Other: Stool Characteristics Soft Soft Formed Formed Liquid Liquid Active Medications: Current Medications Carbidopa/Levodopa (Sinemet 25mg-100 Mg) 1 tab GT Q8HR [facility] Stop: 05/02/17 12:59 Last Admin: 03/06/17 12:18 Dose: 1 tab [place] Oil/[place] Balsam/Trypsin (Venelex) 1 appl TP DAILY [facility] Stop: 05/04/17 08:59 Last Admin: 03/06/17 09:15 Dose: 1 appl Docusate Sodium (Colace) 100 mg PO BID [facility] Stop: 05/02/17 16:59 Last Admin: 03/06/17 09:15 Dose: 100 mg Donepezil HCl (Aricept) 10 mg GT HS [facility] Stop: 05/02/17 20:59 Last Admin: 03/05/17 22:23 Dose: 10 mg Ferrous Sulfate (Iron) 325 mg PO BID [facility] Stop: 05/03/17 16:59 Last Admin: 03/06/17 09:15 Dose: 325 mg Heparin Sodium (Porcine) (Heparin) 5,000 units SUBQ Q12HR [facility] Stop: 05/02/17 20:59 Last Admin: 03/06/17 09:15 Dose: 5,000 units Dextrose (D5w) 1,000 mls @ 50 mls/hr IV .Q20H [facility] Stop: 05/03/17 08:29 Last Admin: 03/06/17 05:55 Dose: 50 mls/hr Levofloxacin (Levaquin Pb) 500 mg in 100 mls @ 100 mls/hr IV Q24H [facility] Stop: 05/03/17 10:59 Last Admin: 03/06/17 10:56 Dose: 100 mls/hr Piperacillin Sod/Tazobactam (Sod 3.375 gm/ Sodium Chloride) 50 mls @ 100 mls/ hr IV Q6HR [facility] Stop: 05/03/17 11:59 Last Admin: 03/06/17 12:10 Dose: 100 mls/hr Vancomycin HCl 0.75 gm/ Sodium (Chloride) 250 mls @ 165 mls/hr IV Q24H [facility] Stop: 05/06/17 08:59 Insulin Aspart (Novolog Insulin Sliding Scale) 0 units SUBQ ACHS [facility] PRN Reason: Protocol Stop: 05/03/17 11:29 Last Admin: 03/06/17 11:58 Dose: 2 units Insulin Detemir (Levemir Insulin) 25 units SUBQ HS [facility] PRN Reason: Protocol Stop: 05/02/17 20:59 Last Admin: 03/05/17 22:30 Dose: 25 units Insulin Detemir (Levemir Insulin) 5 units SUBQ QAM [facility] PRN Reason: Protocol Stop: 05/04/17 08:59 Last Admin: 03/06/17 09:46 Dose: 5 units Lactobacillus Rhamnosus (Culturelle 15b) 1 each PO DAILY [facility] Stop: 05/05/17 08:59 Last Admin: 03/06/17 09:15 Dose: 1 each Levetiracetam (Keppra) 500 mg PO Q8HR [facility] Stop: 05/02/17 12:59 Last Admin: 03/06/17 12:18 Dose: 500 mg Memantine (Namenda) 10 mg GT BID [facility] Stop: 05/02/17 16:59 Last Admin: 03/06/17 09:15 Dose: 10 mg Miscellaneous (Vancomycin Iv Per Pharmacy) 1 [facility] PRN PRN PRN Reason: PROTOCOL Stop: 05/03/17 08:30 Miscellaneous (Probiotic Screen) 1 [facility] PRN PRN PRN Reason: PROTOCOL Stop: 05/04/17 16:59 Pantoprazole Sodium (Protonix) 40 mg IVP DAILY [facility] Stop: 05/04/17 09:59 Last Admin: 03/06/17 09:15 Dose: 40 mg Risperidone (Risperdal) 0.5 mg PO BID [facility] Stop: 05/02/17 16:59 Last Admin: 03/06/17 09:15 Dose: 0.5 mg General: Alert, No acute distress HEENT: Atraumatic, PERRLA Neck: Supple, JVD Cardiovascular: Regular rate Lungs: Clear to auscultation Abdomen: Bowel sounds, Soft, Other (colostomy with green stool, no rebound or guarding) Extremities: Clubbing Neurological: Normal gait, Normal speech - Procedures Procedures: Procedures Procedure Code Date CHANGE GASTROSTOMY TUBE 96030 06/25/12 INJECT/INFUSE NEC 99.29 09/11/07 INSERT PICC CATH 84744 12/19/11 INSERT TUNNELED CV CATH 59324 07/08/07 OTHER ENDOSCOPY OF SM INTEST 45.13 05/05/10 PLACE NEEDLE IN VEIN 33902 07/08/07 REPLACE G/C TUBE PERC 51042 10/19/11 REPLACE GASTROSTOMY TUBE 97.02 06/25/12 TRANSABDOM ENDOSC OF SM INTES 45.11 09/11/07 VENOUS CATHETERIZATION NEC 38.93 12/19/11 VENOUS PUNCTURE NEC 38.99 07/08/07 Nutritional Asmnt/Malnutr-PDOC - Dietary Evaluation Malnutrition Findings (Please click <Entered> for more info): Nutritional Asmnt/Malnutrition Start: 03/04/17 18: 06 Text: Status: Complete Freq: Document 03/04/17 18:06 LCHENG (Rec: 03/04/17 18:19 LCREJIG [email or web address]) Nutritional Asmnt/Malnutrition Patient General Information Nutritional Screening High Risk Consult Diagnosis urosepsis, dehydration Pertinent Medical Hx/Surgical Hx DM, schizophrenia, CVA, chronic anemia, dysphagia, vascular dementia, s/p colostomy, parkinson, CHF, CAD , UTI Subjective Information Consult received for florence Hamilton . Pt seen resting in bed at time of visit. Verified TF runnign at 55ml/hr at this time. Current Diet Order/ Nutrition Support Diabetisource 55ml/hr x 20hr Pertinent Medications D5w, colace, Iron, novolog, levemir, levaquin, piperacillin, protinix, vancomycin Pertinent Labs 03/04 Na 159, K 3.9, Cl 123, BUN 59, CR 1.1, Glucose 296, POC 245-363, Ca 9.4 03/03 A1c 10.2 Nutritional Hx/Data Height 1.63 m Height (Calculated Centimeters) 162.6 Current Weight (lbs) 68.039 kg Weight (Calculated Kilograms) 68.0 Weight (Calculated Grams) 78362.9 [place] Body Weight 120 % [place] Body Weight 125 Body Mass Index (BMI) 25.7 Weight Status Overweight GI Symptoms GI Symptoms None Last BM 03/03 x 3 Difficult in: None Skin Integrity/Comment: decubitus ulceration to sacrum Estimated Nutritional Goals BEE in Kcals: Adj wt of IBW Calories/Kcals/Kg 23-27 based on adj wt 58kg Kcals Calculated 0400-8463 considering bedbound Protein: Adj wt of IBW Protein g/k-1.2 Protein Calculated 58-70 Fluid: ml 1334-1566ml (1ml/kcal) Nutritional Problem 1. Problem Problem altered nutrition related lab values Etiology imbalanced electrolytes/fluid, hx of DM Signs/Symptoms: Na 159, Cl 123, BUN 59, Glucose 296, POC 245-363 Malnutrition Alert Protein-Calorie Malnutrition N/A Is there a minimum of two criteria No selected? Query Text:Check all the applicable criteria. A minimum of two criteria are recommended for diagnosis of either severe or non-severe malnutrition. Intervention/Recommendation Comments 1. Continue with current TF regimen. It provides 1320kcal, 66g protein, meeting 100% of nutritional needs 2. Monitor TF rate, tolerance, wt weekly, skin integrity and labs 3. F/U as moderate risk in 3-5 days, 03/07-03/09 Expected Outcomes/Goals Expected Outcomes/Goals 1. Pt to meet at least 75% of nutritional needs via nutrition support with tolerance 2. Wt stability, skin to remain intact, labs to approach WNL.
[2017-03-07] MEDS: Dextrose 5% 1,000 ML IV SCH (04:36)
[2017-03-07 06:53] LABS: % BASOPHILS 0.2 % (0.0-2.0); % EOSINOPHILS 1.7 % (0.0-5.0); % LYMPHOCYTES 8.2 % (20.0-50.0); % NEUTROPHILS 82.9 % (40.0-80.0); EOSINOPHILE ABSOLUTE 0.1 Th/cmm (0.1-0.4); HEMATOCRIT 27.5 % (41.0-60); HEMOGLOBIN 8.5 gm/dL (12-16); LYMPHOCYTE ABSOLUTE 0.6 Th/cmm (1.5-3.0); MEAN CELL VOLUME 88.9 fl (81-100); MEAN CORPUSCULAR HEMOGLOBIN 27.3 pg (27.0-31.0); MEAN CORPUSCULAR HGB CONC 30.7 pg (28.0-36.0); MEAN PLATELET VOLUME 9.8 fl; MONOCYTE ABSOLUTE 0.5 Th/cmm (0.3-1.0); NEUTROPHILE ABSOLUTE 6.6 Th/cmm (1.8-8.0); PLATELET COUNT 192 Th/cmm (150-400); RED BLOOD COUNT 3.09 Mil/cmm (3.80-5.20); RED CELL DISTRIBUTION WIDTH 21.4 % (11.5-20.0); WHITE BLOOD COUNT 7.8 Th/cmm (4.8-10.8)
[2017-03-07] MEDS: INSULIN ASPART SLIDING SCALE 100 UNITS/ML UNIT SUBQ SCH ×4 (06:53→20:24)
[2017-03-07 07:10] LABS: ALB/GLOB RATIO 0.5 (1.0-1.8); ALBUMIN 2.4 gm/dL (3.7-5.3); ALKALINE PHOSPHATASE 103 U/L (34-104); ANION GAP 8.5 (7.0-16.0); BILIRUBIN,TOTAL 0.6 mg/dL (0.3-1.0); BUN - UREA NITROGEN 33 mg/dL (7-25); CARBON DIOXIDE 30.1 mEq/L (21.0-31.0); CHLORIDE 115 mEq/L (98-107); CREATININE - SERUM 1.2 mg/dL (0.6-1.2); GLUCOSE 254 mg/dL (70-105); POTASSIUM SERUM 3.6 mEq/L (3.5-5.1); SGOT 20 U/L (13-39); SGPT/ALT 5 U/L (7-52); SODIUM SERUM 150 mEq/L (136-145); TOTAL PROTEIN,SERUM 7.4 gm/dL (6.0-8.3)
--- NOTE | 2017-03-07 08:31 | General Progress Note ---
Subjective - Review of Systems Service Date: 03/07/17 Subjective: Patient is awake, alert, no acute distress. Patient recently underwent Arterial Doppler US and Bone Scan ... please see dictated report. patien will need life saving surgical procedure of bilateral BKA and debridement of sacral decubitus ulcer and wound vac. No next of kin to consent at this time. Will obtain signature of 2 doctors due to medicaL neccesity. Objective - Results Result Diagrams: 03/07/17 06:30 03/07/17 06:30 Recent Labs: Laboratory Last Values WBC 7.8 Th/cmm (4.8-10.8) 03/07/17 06:30 RBC 3.09 Mil/cmm (3.80-5.20) L 03/07/17 06:30 Hgb 8.5 gm/dL (12-16) L 03/07/17 06:30 Hct 27.5 % (41.0-60) L 03/07/17 06:30 MCV 88.9 fl (81-100) 03/07/17 06:30 MCH 27.3 pg (27.0-31.0) 03/07/17 06:30 MCHC Differential 30.7 pg (28.0-36.0) 03/07/17 06:30 RDW 21.4 % (11.5-20.0) H 03/07/17 06:30 Plt Count 192 Th/cmm (150-400) 03/07/17 06:30 MPV 9.8 fl 03/07/17 06:30 Neutrophils % 82.9 % (40.0-80.0) H 03/07/17 06:30 Band Neutrophils % 8 % (0-10) 03/04/17 05:35 Lymphocytes % 8.2 % (20.0-50.0) L 03/07/17 06:30 Monocytes % 7.0 % (2.0-10.0) 03/07/17 06:30 Eosinophils % 1.7 % (0.0-5.0) 03/07/17 06:30 Basophils % 0.2 % (0.0-2.0) 03/07/17 06:30 Neutrophils (Manual) 68 % (40-80) 03/04/17 05:35 Lymphocytes 17 % (20-50) L 03/04/17 05:35 Monocytes 3 % (2-10) 03/04/17 05:35 Eosinophils 3 % (0-5) 03/04/17 05:35 Nucleated RBCs 1.0 % (0-0) H 03/04/17 05:35 Anisocytosis 1+ 03/04/17 05:35 PT 11.9 SECONDS (9.5-11.5) H 03/03/17 09:00 INR 1.13 (0.5-1.4) 03/03/17 09:00 PTT (Actin FS) 36.6 SECONDS (26.0-38.0) 03/03/17 09:00 Sodium 150 mEq/L (136-145) H 03/07/17 06:30 Potassium 3.6 mEq/L (3.5-5.1) 03/07/17 06:30 Chloride 115 mEq/L (98-107) H 03/07/17 06:30 Carbon Dioxide 30.1 mEq/L (21.0-31.0) 03/07/17 06:30 Anion Gap 8.5 (7.0-16.0) 03/07/17 06:30 BUN 33 mg/dL (7-25) H 03/07/17 06:30 Creatinine 1.2 mg/dL (0.6-1.2) 03/07/17 06:30 Est GFR ( Amer) TNP 03/07/17 06:30 Est GFR (Non-Af Amer) TNP 03/07/17 06:30 BUN/Creatinine Ratio 27.5 03/07/17 06:30 Glucose 254 mg/dL (70-105) H 03/07/17 06:30 POC Glucose 229 MG/DL (70 - 105) H 03/05/17 16:32 Hemoglobin A1c % 10.2 % (4.0-6.0) H 03/03/17 09:00 Whole Bld Lactic Acid 2.20 mmol/L (0.60-1.99) H* 03/04/17 13:00 Calcium 9.0 mg/dL (8.6-10.3) 03/07/17 06:30 Iron 33 ug/dL (27-139) 03/03/17 09:00 TIBC 170 ug/dL (250-450) L 03/03/17 09:00 Iron Saturation 19 % (15-55) 03/03/17 09:00 Unsaturated IBC 137 ug/dL (118-369) 03/03/17 09:00 Ferritin 1421 ng/mL (15-150) H 03/03/17 09:00 Total Bilirubin 0.6 mg/dL (0.3-1.0) 03/07/17 06:30 Direct Bilirubin 0.06 mg/dL (0.0-0.2) 03/03/17 09:00 AST 20 U/L (13-39) 03/07/17 06:30 ALT 5 U/L (7-52) L 03/07/17 06:30 Alkaline Phosphatase 103 U/L (34-104) 03/07/17 06:30 C-Reactive Protein 33.4 mg/dL (0.0-0.9) H 03/03/17 09:00 B-Natriuretic Peptide 4190.0 pg/mL (5.0-100.0) H 03/03/17 09:00 Total Protein 7.4 gm/dL (6.0-8.3) 03/07/17 06:30 Albumin 2.4 gm/dL (3.7-5.3) L 03/07/17 06:30 Globulin 5.0 gm/dL 03/07/17 06:30 Albumin/Globulin Ratio 0.5 (1.0-1.8) L 03/07/17 06:30 Triglycerides 134 mg/dL (<150) 03/03/17 09:00 Cholesterol 49 mg/dL (<200) 03/03/17 09:00 LDL Cholesterol Direct 9 mg/dL (75-193) L 03/03/17 09:00 HDL Cholesterol 17 mg/dL (23-92) L 03/03/17 09:00 TSH 4.04 uIU/ml (0.34-5.60) 03/03/17 09:00 Urine Source CATH 03/03/17 09:59 Urine Color YELLOW 03/03/17 09:59 Urine Clarity CLOUDY (CLEAR) H 03/03/17 09:59 Urine pH 6.0 (4.6 - 8.0) 03/03/17 09:59 Ur Specific [place] 1.010 (1.005-1.030) 03/03/17 09:59 Urine Protein 30 mg/dL (NEGATIVE) H 03/03/17 09:59 Urine Glucose (UA) 100 mg/dL (NEGATIVE) H 03/03/17 09:59 Urine Ketones NEGATIVE mg/dL (NEGATIVE) 03/03/17 09:59 Urine Blood LARGE (NEGATIVE) H 03/03/17 09:59 Urine Nitrate NEGATIVE (NEGATIVE) 03/03/17 09:59 Urine Bilirubin NEGATIVE (NEGATIVE) 03/03/17 09:59 Urine Urobilinogen 0.2 E.U./dL (0.2 - 1.0) 03/03/17 09:59 Ur Leukocyte Esterase LARGE (NEGATIVE) H 03/03/17 09:59 Urine RBC 5-10 /hpf (0-5) H 03/03/17 09:59 Urine WBC 10-25 /hpf (0-5) H 03/03/17 09:59 Ur Epithelial Cells MODERATE /lpf (FEW) 03/03/17 09:59 Urine Bacteria 3+ /hpf (NONE SEEN) H 03/03/17 09:59 Urine Yeast MODERATE /hpf (NONE SEEN) H 03/03/17 09:59 Stool Occult Blood NEGATIVE (NEGATIVE) 03/04/17 09:30 Vancomycin Trough 24.6 ug/mL (10-20) H 03/06/17 08:00 Blood Type B POSITIVE 03/03/17 09:00 Antibody Screen NEGATIVE 03/03/17 09:00 Crossmatch See Detail 03/03/17 09:00 - Physical Exam Vitals and I&O: Vital Signs Temp 96.7 F 03/07/17 04:00 Pulse 82 03/07/17 07:39 Resp 18 03/07/17 07:39 BP 116/45 03/07/17 04:00 Pulse Ox 97 03/07/17 07:39 Intake & Output 03/06/17 03/07/17 03/07/17 18:59 06:59 18:59 Intake Total 1090 1450 Output Total 1800 775 Balance -710 1450 -775 Weight (lbs) 68.492 kg 68.492 kg Intake: Intake, IV Amount 50 1450 Dextrose 5% 1,000 ml @ 50 1000 mls/hr IV .Q20H [facility] Rx#: [id number] Levofloxacin 500mg/100mL 100 500 mg In 100 ml @ 100 mls/hr IV Q24H [facility] Rx#: [id number] Piperacillin Sodium/ 50 100 Tazobact 3.375 gm In Sodium Chloride 0.9% 50 ml @ 100 mls/hr IV Q6HR [facility] Rx#:[id number] Vancomycin HCl 1 gm In 250 Sodium Chloride 0.9% 250 ml @ 165 mls/hr IV Q24HR@ 0900 [facility] Rx#:[id number] Tube Feeding 1040 Output: Urine 1000 775 Stool 800 Other: Stool Characteristics Soft Soft Liquid Liquid Green Active Medications: Current Medications Carbidopa/Levodopa (Sinemet 25mg-100 Mg) 1 tab GT Q8HR [facility] Stop: 05/02/17 12:59 Last Admin: 03/07/17 04:20 Dose: 1 tab [place] Oil/[place] Balsam/Trypsin (Venelex) 1 appl TP DAILY [facility] Stop: 05/04/17 08:59 Last Admin: 03/06/17 09:15 Dose: 1 appl Docusate Sodium (Colace) 100 mg PO BID [facility] Stop: 05/02/17 16:59 Last Admin: 03/06/17 17:32 Dose: 100 mg Donepezil HCl (Aricept) 10 mg GT HS [facility] Stop: 05/02/17 20:59 Last Admin: 03/06/17 22:20 Dose: 10 mg Ferrous Sulfate (Iron) 325 mg PO BID [facility] Stop: 05/03/17 16:59 Last Admin: 03/06/17 17:32 Dose: 325 mg Heparin Sodium (Porcine) (Heparin) 5,000 units SUBQ Q12HR [facility] Stop: 05/02/17 20:59 Last Admin: 03/06/17 22:19 Dose: 5,000 units Dextrose (D5w) 1,000 mls @ 50 mls/hr IV .Q20H [facility] Stop: 05/03/17 08:29 Last Admin: 03/07/17 04:36 Dose: 50 mls/hr Levofloxacin (Levaquin Pb) 500 mg in 100 mls @ 100 mls/hr IV Q24H [facility] Stop: 05/03/17 10:59 Last Infusion: 03/06/17 19:13 Dose: Infused Piperacillin Sod/Tazobactam (Sod 3.375 gm/ Sodium Chloride) 50 mls @ 100 mls/ hr IV Q6HR [facility] Stop: 05/03/17 11:59 Last Admin: 03/07/17 05:30 Dose: 100 mls/hr Vancomycin HCl 0.75 gm/ Sodium (Chloride) 250 mls @ 165 mls/hr IV Q24H [facility] Stop: 05/06/17 08:59 Insulin Aspart (Novolog Insulin Sliding Scale) 0 units SUBQ ACHS [facility] PRN Reason: Protocol Stop: 05/03/17 11:29 Last Admin: 03/07/17 06:53 Dose: 4 units Insulin Detemir (Levemir Insulin) 25 units SUBQ HS [facility] PRN Reason: Protocol Stop: 05/02/17 20:59 Last Admin: 03/06/17 22:28 Dose: Not Given Insulin Detemir (Levemir Insulin) 5 units SUBQ QAM [facility] PRN Reason: Protocol Stop: 05/04/17 08:59 Last Admin: 03/06/17 09:46 Dose: 5 units Lactobacillus Rhamnosus (Culturelle 15b) 1 each PO DAILY [facility] Stop: 05/05/17 08:59 Last Admin: 03/06/17 09:15 Dose: 1 each Levetiracetam (Keppra) 500 mg PO Q8HR [facility] Stop: 05/02/17 12:59 Last Admin: 03/07/17 04:20 Dose: 500 mg Memantine (Namenda) 10 mg GT BID [facility] Stop: 05/02/17 16:59 Last Admin: 03/06/17 17:32 Dose: 10 mg Miscellaneous (Vancomycin Iv Per Pharmacy) 1 [facility] PRN PRN PRN Reason: PROTOCOL Stop: 05/03/17 08:30 Miscellaneous (Probiotic Screen) 1 [facility] PRN PRN PRN Reason: PROTOCOL Stop: 05/04/17 16:59 Pantoprazole Sodium (Protonix) 40 mg IVP DAILY [facility] Stop: 05/04/17 09:59 Last Admin: 03/06/17 09:15 Dose: 40 mg Risperidone (Risperdal) 0.5 mg PO BID [facility] Stop: 05/02/17 16:59 Last Admin: 03/06/17 17:32 Dose: 0.5 mg General: Alert, No acute distress HEENT: Atraumatic, PERRLA, EOMI Neck: Supple, JVD Cardiovascular: Regular rate, Normal S1, Normal S2 Lungs: Clear to auscultation Abdomen: Bowel sounds, Soft Extremities: Clubbing Neurological: Normal gait, Normal speech - Procedures Procedures: Procedures Procedure Code Date CHANGE GASTROSTOMY TUBE 96509 06/25/12 INJECT/INFUSE NEC 99.29 09/11/07 INSERT PICC CATH 75402 12/19/11 INSERT TUNNELED CV CATH 71595 07/08/07 OTHER ENDOSCOPY OF SM INTEST 45.13 05/05/10 PLACE NEEDLE IN VEIN 73121 07/08/07 REPLACE G/C TUBE PERC 21821 10/19/11 REPLACE GASTROSTOMY TUBE 97.02 06/25/12 TRANSABDOM ENDOSC OF SM INTES 45.11 09/11/07 VENOUS CATHETERIZATION NEC 38.93 12/19/11 VENOUS PUNCTURE NEC 38.99 07/08/07 Assessment/Plan - Assessment Assessment: sepsis vs urosepsis hypernatremia elevated BNP acute on chronic anemia r/o GIB diabetes mellitus type 2 schizophrenia CVA w/ right sided hemiplegia h/o UTI s/p colostomy parkinson's disease hypothyroidism vascular dementia dysphagia CHF CAD peripheral vascular disease osteomyelitis of the sacrum ileus - Plan Plan: General Surgery consult -- Dr. Bates..Will need surgical procedure for possible BKA. ID consult -- Dr. Regan Garcia Cardiology consult -- Dr. Garcia GI Consult -- Dr. Boone repeat CBC, CMP continue IV anitbiotics .. IV Zosyn, IV Vancomycin Blood culture pending, Urine Cultures pending Nutritional Asmnt/Malnutr-PDOC - Dietary Evaluation Malnutrition Findings (Please click <Entered> for more info): Nutritional Asmnt/Malnutrition Start: 03/04/17 18: 06 Text: Status: Complete Freq: Document 03/04/17 18:06 [facility] (Rec: 03/04/17 18:[id number] Nutritional Asmnt/Malnutrition Patient General Information Nutritional Screening High Risk Consult Diagnosis urosepsis, dehydration Pertinent Medical Hx/Surgical Hx DM, schizophrenia, CVA, chronic anemia, dysphagia, vascular dementia, s/p colostomy, parkinson, CHF, CAD , UTI Subjective Information Consult received for florence Hamilton . Pt seen resting in bed at time of visit. Verified TF runnign at 55ml/hr at this time. Current Diet Order/ Nutrition Support Diabetisource 55ml/hr x 20hr Pertinent Medications D5w, colace, Iron, novolog, levemir, levaquin, piperacillin, protinix, vancomycin Pertinent Labs 03/04 Na 159, K 3.9, Cl 123, BUN 59, CR 1.1, Glucose 296, POC 245-363, Ca 9.4 03/03 A1c 10.2 Nutritional Hx/Data Height 1.63 m Height (Calculated Centimeters) 162.6 Current Weight (lbs) 68.039 kg Weight (Calculated Kilograms) 68.0 Weight (Calculated Grams) 78114.9 [place] Body Weight 120 % [place] Body Weight 125 Body Mass Index (BMI) 25.7 Weight Status Overweight GI Symptoms GI Symptoms None Last BM 03/03 x 3 Difficult in: None Skin Integrity/Comment: decubitus ulceration to sacrum Estimated Nutritional Goals BEE in Kcals: Adj wt of IBW Calories/Kcals/Kg - based on adj wt 58kg Kcals Calculated 2817-1689 considering bedbound Protein: Adj wt of IBW Protein g/k-1.2 Protein Calculated 58-70 Fluid: ml 1334-1566ml (1ml/kcal) Nutritional Problem 1. Problem Problem altered nutrition related lab values Etiology imbalanced electrolytes/fluid, hx of DM Signs/Symptoms: Na 159, Cl 123, BUN 59, Glucose 296, POC 245-363 Malnutrition Alert Protein-Calorie Malnutrition N/A Is there a minimum of two criteria No selected? Query Text:Check all the applicable criteria. A minimum of two criteria are recommended for diagnosis of either severe or non-severe malnutrition. Intervention/Recommendation Comments 1. Continue with current TF regimen. It provides 1320kcal, 66g protein, meeting 100% of nutritional needs 2. Monitor TF rate, tolerance, wt weekly, skin integrity and labs 3. F/U as moderate risk in 3-5 days, 03/07-03/09 Expected Outcomes/Goals Expected Outcomes/Goals 1. Pt to meet at least 75% of nutritional needs via nutrition support with tolerance 2. Wt stability, skin to remain intact, labs to approach WNL.
--- NOTE | 2017-03-07 09:31 | General Progress Note ---
Subjective - Review of Systems Service Date: 03/07/17 Events since last encounter: labs noted patient has no family and 2 physicians signed consent for bilateral BKA and excisional debridement of sacral decubitus ulcers with wound vac application Objective - Results Result Diagrams: 03/07/17 06:30 03/07/17 06:30 Recent Labs: Laboratory Last Values WBC 7.8 Th/cmm (4.8-10.8) 03/07/17 06:30 RBC 3.09 Mil/cmm (3.80-5.20) L 03/07/17 06:30 Hgb 8.5 gm/dL (12-16) L 03/07/17 06:30 Hct 27.5 % (41.0-60) L 03/07/17 06:30 MCV 88.9 fl (81-100) 03/07/17 06:30 MCH 27.3 pg (27.0-31.0) 03/07/17 06:30 MCHC Differential 30.7 pg (28.0-36.0) 03/07/17 06:30 RDW 21.4 % (11.5-20.0) H 03/07/17 06:30 Plt Count 192 Th/cmm (150-400) 03/07/17 06:30 MPV 9.8 fl 03/07/17 06:30 Neutrophils % 82.9 % (40.0-80.0) H 03/07/17 06:30 Band Neutrophils % 8 % (0-10) 03/04/17 05:35 Lymphocytes % 8.2 % (20.0-50.0) L 03/07/17 06:30 Monocytes % 7.0 % (2.0-10.0) 03/07/17 06:30 Eosinophils % 1.7 % (0.0-5.0) 03/07/17 06:30 Basophils % 0.2 % (0.0-2.0) 03/07/17 06:30 Neutrophils (Manual) 68 % (40-80) 03/04/17 05:35 Lymphocytes 17 % (20-50) L 03/04/17 05:35 Monocytes 3 % (2-10) 03/04/17 05:35 Eosinophils 3 % (0-5) 03/04/17 05:35 Nucleated RBCs 1.0 % (0-0) H 03/04/17 05:35 Anisocytosis 1+ 03/04/17 05:35 PT 11.9 SECONDS (9.5-11.5) H 03/03/17 09:00 INR 1.13 (0.5-1.4) 03/03/17 09:00 PTT (Actin FS) 36.6 SECONDS (26.0-38.0) 03/03/17 09:00 Sodium 150 mEq/L (136-145) H 03/07/17 06:30 Potassium 3.6 mEq/L (3.5-5.1) 03/07/17 06:30 Chloride 115 mEq/L (98-107) H 03/07/17 06:30 Carbon Dioxide 30.1 mEq/L (21.0-31.0) 03/07/17 06:30 Anion Gap 8.5 (7.0-16.0) 03/07/17 06:30 BUN 33 mg/dL (7-25) H 03/07/17 06:30 Creatinine 1.2 mg/dL (0.6-1.2) 03/07/17 06:30 Est GFR ( Amer) TNP 03/07/17 06:30 Est GFR (Non-Af Amer) TNP 03/07/17 06:30 BUN/Creatinine Ratio 27.5 03/07/17 06:30 Glucose 254 mg/dL (70-105) H 03/07/17 06:30 POC Glucose 229 MG/DL (70 - 105) H 03/05/17 16:32 Hemoglobin A1c % 10.2 % (4.0-6.0) H 03/03/17 09:00 Whole Bld Lactic Acid 2.20 mmol/L (0.60-1.99) H* 03/04/17 13:00 Calcium 9.0 mg/dL (8.6-10.3) 03/07/17 06:30 Iron 33 ug/dL (27-139) 03/03/17 09:00 TIBC 170 ug/dL (250-450) L 03/03/17 09:00 Iron Saturation 19 % (15-55) 03/03/17 09:00 Unsaturated IBC 137 ug/dL (118-369) 03/03/17 09:00 Ferritin 1421 ng/mL (15-150) H 03/03/17 09:00 Total Bilirubin 0.6 mg/dL (0.3-1.0) 03/07/17 06:30 Direct Bilirubin 0.06 mg/dL (0.0-0.2) 03/03/17 09:00 AST 20 U/L (13-39) 03/07/17 06:30 ALT 5 U/L (7-52) L 03/07/17 06:30 Alkaline Phosphatase 103 U/L (34-104) 03/07/17 06:30 C-Reactive Protein 33.4 mg/dL (0.0-0.9) H 03/03/17 09:00 B-Natriuretic Peptide 4190.0 pg/mL (5.0-100.0) H 03/03/17 09:00 Total Protein 7.4 gm/dL (6.0-8.3) 03/07/17 06:30 Albumin 2.4 gm/dL (3.7-5.3) L 03/07/17 06:30 Globulin 5.0 gm/dL 03/07/17 06:30 Albumin/Globulin Ratio 0.5 (1.0-1.8) L 03/07/17 06:30 Triglycerides 134 mg/dL (<150) 03/03/17 09:00 Cholesterol 49 mg/dL (<200) 03/03/17 09:00 LDL Cholesterol Direct 9 mg/dL (75-193) L 03/03/17 09:00 HDL Cholesterol 17 mg/dL (23-92) L 03/03/17 09:00 TSH 4.04 uIU/ml (0.34-5.60) 03/03/17 09:00 Urine Source CATH 03/03/17 09:59 Urine Color YELLOW 03/03/17 09:59 Urine Clarity CLOUDY (CLEAR) H 03/03/17 09:59 Urine pH 6.0 (4.6 - 8.0) 03/03/17 09:59 Ur Specific [place] 1.010 (1.005-1.030) 03/03/17 09:59 Urine Protein 30 mg/dL (NEGATIVE) H 03/03/17 09:59 Urine Glucose (UA) 100 mg/dL (NEGATIVE) H 03/03/17 09:59 Urine Ketones NEGATIVE mg/dL (NEGATIVE) 03/03/17 09:59 Urine Blood LARGE (NEGATIVE) H 03/03/17 09:59 Urine Nitrate NEGATIVE (NEGATIVE) 03/03/17 09:59 Urine Bilirubin NEGATIVE (NEGATIVE) 03/03/17 09:59 Urine Urobilinogen 0.2 E.U./dL (0.2 - 1.0) 03/03/17 09:59 Ur Leukocyte Esterase LARGE (NEGATIVE) H 03/03/17 09:59 Urine RBC 5-10 /hpf (0-5) H 03/03/17 09:59 Urine WBC 10-25 /hpf (0-5) H 03/03/17 09:59 Ur Epithelial Cells MODERATE /lpf (FEW) 03/03/17 09:59 Urine Bacteria 3+ /hpf (NONE SEEN) H 03/03/17 09:59 Urine Yeast MODERATE /hpf (NONE SEEN) H 03/03/17 09:59 Stool Occult Blood NEGATIVE (NEGATIVE) 03/04/17 09:30 Vancomycin Trough 24.6 ug/mL (10-20) H 03/06/17 08:00 Blood Type B POSITIVE 03/03/17 09:00 Antibody Screen NEGATIVE 03/03/17 09:00 Crossmatch See Detail 03/03/17 09:00 - Physical Exam Vitals and I&O: Vital Signs Temp 97.2 F 03/07/17 08:00 Pulse 85 03/07/17 08:00 Resp 19 03/07/17 08:00 BP 104/56 03/07/17 08:00 Pulse Ox 100 03/07/17 08:00 Intake & Output 03/06/17 03/07/17 03/07/17 18:59 06:59 18:59 Intake Total 1090 1450 Output Total 1800 775 Balance -710 1450 -775 Weight (lbs) 68.492 kg 68.492 kg Intake: Intake, IV Amount 50 1450 Dextrose 5% 1,000 ml @ 50 1000 mls/hr IV .Q20H [facility] Rx#: [id number] Levofloxacin 500mg/100mL 100 500 mg In 100 ml @ 100 mls/hr IV Q24H [facility] Rx#: [id number] Piperacillin Sodium/ 50 100 Tazobact 3.375 gm In Sodium Chloride 0.9% 50 ml @ 100 mls/hr IV Q6HR [facility] Rx#:[id number] Vancomycin HCl 1 gm In 250 Sodium Chloride 0.9% 250 ml @ 165 mls/hr IV Q24HR@ 0900 [facility] Rx#:[id number] Tube Feeding 1040 Output: Urine 1000 775 Stool 800 Other: Stool Characteristics Soft Soft Liquid Liquid Green Active Medications: Current Medications Carbidopa/Levodopa (Sinemet 25mg-100 Mg) 1 tab GT Q8HR [facility] Stop: 05/02/17 12:59 Last Admin: 03/07/17 04:20 Dose: 1 tab [place] Oil/[place] Balsam/Trypsin (Venelex) 1 appl TP DAILY [facility] Stop: 05/04/17 08:59 Last Admin: 03/06/17 09:15 Dose: 1 appl Docusate Sodium (Colace) 100 mg PO BID [facility] Stop: 05/02/17 16:59 Last Admin: 03/06/17 17:32 Dose: 100 mg Donepezil HCl (Aricept) 10 mg GT HS [facility] Stop: 05/02/17 20:59 Last Admin: 03/06/17 22:20 Dose: 10 mg Ferrous Sulfate (Iron) 325 mg PO BID [facility] Stop: 05/03/17 16:59 Last Admin: 03/06/17 17:32 Dose: 325 mg Heparin Sodium (Porcine) (Heparin) 5,000 units SUBQ Q12HR [facility] Stop: 05/02/17 20:59 Last Admin: 03/06/17 22:19 Dose: 5,000 units Dextrose (D5w) 1,000 mls @ 50 mls/hr IV .Q20H [facility] Stop: 05/03/17 08:29 Last Admin: 03/07/17 04:36 Dose: 50 mls/hr Levofloxacin (Levaquin Pb) 500 mg in 100 mls @ 100 mls/hr IV Q24H [facility] Stop: 05/03/17 10:59 Last Infusion: 03/06/17 19:13 Dose: Infused Piperacillin Sod/Tazobactam (Sod 3.375 gm/ Sodium Chloride) 50 mls @ 100 mls/ hr IV Q6HR [facility] Stop: 05/03/17 11:59 Last Admin: 03/07/17 05:30 Dose: 100 mls/hr Vancomycin HCl 0.75 gm/ Sodium (Chloride) 250 mls @ 165 mls/hr IV Q24H [facility] Stop: 05/06/17 08:59 Insulin Aspart (Novolog Insulin Sliding Scale) 0 units SUBQ ACHS [facility] PRN Reason: Protocol Stop: 05/03/17 11:29 Last Admin: 03/07/17 06:53 Dose: 4 units Insulin Detemir (Levemir Insulin) 25 units SUBQ HS [facility] PRN Reason: Protocol Stop: 05/02/17 20:59 Last Admin: 03/06/17 22:28 Dose: Not Given Insulin Detemir (Levemir Insulin) 5 units SUBQ QAM [facility] PRN Reason: Protocol Stop: 05/04/17 08:59 Last Admin: 03/06/17 09:46 Dose: 5 units Lactobacillus Rhamnosus (Culturelle 15b) 1 each PO DAILY [facility] Stop: 05/05/17 08:59 Last Admin: 03/06/17 09:15 Dose: 1 each Levetiracetam (Keppra) 500 mg PO Q8HR [facility] Stop: 05/02/17 12:59 Last Admin: 03/07/17 04:20 Dose: 500 mg Memantine (Namenda) 10 mg GT BID [facility] Stop: 05/02/17 16:59 Last Admin: 03/06/17 17:32 Dose: 10 mg Miscellaneous (Vancomycin Iv Per Pharmacy) 1 ea PRN PRN PRN Reason: PROTOCOL Stop: 05/03/17 08:30 Miscellaneous (Probiotic Screen) 1 [facility] PRN PRN PRN Reason: PROTOCOL Stop: 05/04/17 16:59 Pantoprazole Sodium (Protonix) 40 mg IVP DAILY [facility] Stop: 05/04/17 09:59 Last Admin: 03/06/17 09:15 Dose: 40 mg Risperidone (Risperdal) 0.5 mg PO BID [facility] Stop: 05/02/17 16:59 Last Admin: 03/06/17 17:32 Dose: 0.5 mg General: Alert, No acute distress HEENT: Atraumatic, PERRLA, EOMI Neck: Supple, JVD Cardiovascular: Regular rate, Normal S1, Normal S2 Lungs: Clear to auscultation Abdomen: Bowel sounds, Soft Extremities: Clubbing Neurological: Normal gait, Normal speech - Procedures Procedures: Procedures Procedure Code Date CHANGE GASTROSTOMY TUBE 98832 06/25/12 INJECT/INFUSE NEC 99.29 09/11/07 INSERT PICC CATH 50271 12/19/11 INSERT TUNNELED CV CATH 66113 07/08/07 OTHER ENDOSCOPY OF SM INTEST 45.13 05/05/10 PLACE NEEDLE IN VEIN 01554 07/08/07 REPLACE G/C TUBE PERC 93477 10/19/11 REPLACE GASTROSTOMY TUBE 97.02 06/25/12 TRANSABDOM ENDOSC OF SM INTES 45.11 09/11/07 VENOUS CATHETERIZATION NEC 38.93 12/19/11 VENOUS PUNCTURE NEC 38.99 07/08/07 Nutritional Asmnt/Malnutr-PDOC - Dietary Evaluation Malnutrition Findings (Please click <Entered> for more info): Nutritional Asmnt/Malnutrition Start: 03/04/17 18: 06 Text: Status: Complete Freq: Document 03/04/17 18:06 [email or web address] (Rec: 03/04/17 18:19 [email or web address] [email or web address]) Nutritional Asmnt/Malnutrition Patient General Information Nutritional Screening High Risk Consult Diagnosis urosepsis, dehydration Pertinent Medical Hx/Surgical Hx DM, schizophrenia, CVA, chronic anemia, dysphagia, vascular dementia, s/p colostomy, parkinson, CHF, CAD , UTI Subjective Information Consult received for florence Hamilton . Pt seen resting in bed at time of visit. Verified TF runnign at 55ml/hr at this time. Current Diet Order/ Nutrition Support Diabetisource 55ml/hr x 20hr Pertinent Medications D5w, colace, Iron, novolog, levemir, levaquin, piperacillin, protinix, vancomycin Pertinent Labs 03/04 Na 159, K 3.9, Cl 123, BUN 59, CR 1.1, Glucose 296, POC 245-363, Ca 9.4 03/03 A1c 10.2 Nutritional Hx/Data Height 1.63 m Height (Calculated Centimeters) 162.6 Current Weight (lbs) 68.039 kg Weight (Calculated Kilograms) 68.0 Weight (Calculated Grams) 09381.9 Hugo Body Weight 120 % Hugo Body Weight 125 Body Mass Index (BMI) 25.7 Weight Status Overweight GI Symptoms GI Symptoms None Last BM 03/03 x 3 Difficult in: None Skin Integrity/Comment: decubitus ulceration to sacrum Estimated Nutritional Goals BEE in Kcals: Adj wt of IBW Calories/Kcals/Kg 23-27 based on adj wt 58kg Kcals Calculated 9999-9081 considering bedbound Protein: Adj wt of IBW Protein g/k-1.2 Protein Calculated 58-70 Fluid: ml 1334-1566ml (1ml/kcal) Nutritional Problem 1. Problem Problem altered nutrition related lab values Etiology imbalanced electrolytes/fluid, hx of DM Signs/Symptoms: Na 159, Cl 123, BUN 59, Glucose 296, POC 245-363 Malnutrition Alert Protein-Calorie Malnutrition N/A Is there a minimum of two criteria No selected? Query Text:Check all the applicable criteria. A minimum of two criteria are recommended for diagnosis of either severe or non-severe malnutrition. Intervention/Recommendation Comments 1. Continue with current TF regimen. It provides 1320kcal, 66g protein, meeting 100% of nutritional needs 2. Monitor TF rate, tolerance, wt weekly, skin integrity and labs 3. F/U as moderate risk in 3-5 days, 03/07-03/09 Expected Outcomes/Goals Expected Outcomes/Goals 1. Pt to meet at least 75% of nutritional needs via nutrition support with tolerance 2. Wt stability, skin to remain intact, labs to approach WNL.
[2017-03-07] MEDS: Venelex 60gm Tube TP SCH (09:39)
[2017-03-07] MEDS: Ferrous Sulfate 325 MG TAB PO SCH ×2 (09:56→18:17)
[2017-03-07] MEDS: Insulin Detemir 100 units/mL 10mL Vial SUBQ SCH ×2 (09:57→20:25)
[2017-03-07] MEDS: Multivitamin w/ Minerals Tab GT SCH (09:58)
[2017-03-07] MEDS: Lactobacillus Rhamnosus GG 15 Billion CFU CAP.SPRINK PO SCH (09:58)
[2017-03-07] MEDS ORDERED: MORPHINE 1 MG/ML ONE (10:26)
[2017-03-07] MEDS ORDERED: Propofol 10 mg/mL 20mL Vial **SURGERY USE ONLY IV ONE (10:45)
--- NOTE | 2017-03-07 11:46 | Consultation ---
DATE OF CONSULTATION: 03/03/2017 SURGICAL CONSULTATION REFERRING PHYSICIAN: Boris Costa D.O. REASON FOR CONSULTATION: Gangrene, both feet and stage 4 sacral decubitus ulcers. Thank you for referring this patient to me. HISTORY OF PRESENT ILLNESS: This is an 87-year-old female who was admitted because of change in mental status. The patient apparently has no family and is poorly responsive. PAST MEDICAL HISTORY: Includes Parkinson's disease, hypertension, heart disease, dementia, type 2 diabetes with gastro[address]omy in place. She has a colostomy with right hemiplegia. She is nonverbal. LABORATORY STUDIES: On admission, the WBC was normal at 10.2 and hemoglobin at 6.0 grams. Platelet count was adequate. PT and PTT were essentially normal. Blood glucose was 465 with BUN of 73 and creatinine of 1.3. The patient was given blood replacement and GI evaluation was done by Dr. Crowe. The patient has also been seen by Dr. Jose Spears for UTI. PHYSICAL EXAMINATION: GENERAL: The patient is nonverbal. She is awake. Significant findings include ischemic dry gangrene of both feet, worse on the left side. No palpable pulses in the ankles under the popliteal area. The sacral area has extensive ulcerations, which is stage IV. The patient has no family and arterial studies will be obtained and bone scan as well. [facility]# [id number]
--- NOTE | 2017-03-07 12:26 | Infectious Disease Prog Note ---
Infectious Disease Subjective - Review of Systems Service Date: 03/07/17 Subjective: No new change, no fever. Infectious Disease Objective - Results Result Diagrams: 03/07/17 06:30 03/07/17 06:30 Recent Labs: Laboratory Last Values WBC 7.8 Th/cmm (4.8-10.8) 03/07/17 06:30 RBC 3.09 Mil/cmm (3.80-5.20) L 03/07/17 06:30 Hgb 8.5 gm/dL (12-16) L 03/07/17 06:30 Hct 27.5 % (41.0-60) L 03/07/17 06:30 MCV 88.9 fl (81-100) 03/07/17 06:30 MCH 27.3 pg (27.0-31.0) 03/07/17 06:30 MCHC Differential 30.7 pg (28.0-36.0) 03/07/17 06:30 RDW 21.4 % (11.5-20.0) H 03/07/17 06:30 Plt Count 192 Th/cmm (150-400) 03/07/17 06:30 MPV 9.8 fl 03/07/17 06:30 Neutrophils % 82.9 % (40.0-80.0) H 03/07/17 06:30 Band Neutrophils % 8 % (0-10) 03/04/17 05:35 Lymphocytes % 8.2 % (20.0-50.0) L 03/07/17 06:30 Monocytes % 7.0 % (2.0-10.0) 03/07/17 06:30 Eosinophils % 1.7 % (0.0-5.0) 03/07/17 06:30 Basophils % 0.2 % (0.0-2.0) 03/07/17 06:30 Neutrophils (Manual) 68 % (40-80) 03/04/17 05:35 Lymphocytes 17 % (20-50) L 03/04/17 05:35 Monocytes 3 % (2-10) 03/04/17 05:35 Eosinophils 3 % (0-5) 03/04/17 05:35 Nucleated RBCs 1.0 % (0-0) H 03/04/17 05:35 Anisocytosis 1+ 03/04/17 05:35 PT 11.9 SECONDS (9.5-11.5) H 03/03/17 09:00 INR 1.13 (0.5-1.4) 03/03/17 09:00 PTT (Actin FS) 36.6 SECONDS (26.0-38.0) 03/03/17 09:00 Sodium 150 mEq/L (136-145) H 03/07/17 06:30 Potassium 3.6 mEq/L (3.5-5.1) 03/07/17 06:30 Chloride 115 mEq/L (98-107) H 03/07/17 06:30 Carbon Dioxide 30.1 mEq/L (21.0-31.0) 03/07/17 06:30 Anion Gap 8.5 (7.0-16.0) 03/07/17 06:30 BUN 33 mg/dL (7-25) H 03/07/17 06:30 Creatinine 1.2 mg/dL (0.6-1.2) 03/07/17 06:30 Est GFR ( Amer) TNP 03/07/17 06:30 Est GFR (Non-Af Amer) TNP 03/07/17 06:30 BUN/Creatinine Ratio 27.5 03/07/17 06:30 Glucose 254 mg/dL (70-105) H 03/07/17 06:30 POC Glucose 229 MG/DL (70 - 105) H 03/05/17 16:32 Hemoglobin A1c % 10.2 % (4.0-6.0) H 03/03/17 09:00 Whole Bld Lactic Acid 2.20 mmol/L (0.60-1.99) H* 03/04/17 13:00 Calcium 9.0 mg/dL (8.6-10.3) 03/07/17 06:30 Iron 33 ug/dL (27-139) 03/03/17 09:00 TIBC 170 ug/dL (250-450) L 03/03/17 09:00 Iron Saturation 19 % (15-55) 03/03/17 09:00 Unsaturated IBC 137 ug/dL (118-369) 03/03/17 09:00 Ferritin 1421 ng/mL (15-150) H 03/03/17 09:00 Total Bilirubin 0.6 mg/dL (0.3-1.0) 03/07/17 06:30 Direct Bilirubin 0.06 mg/dL (0.0-0.2) 03/03/17 09:00 AST 20 U/L (13-39) 03/07/17 06:30 ALT 5 U/L (7-52) L 03/07/17 06:30 Alkaline Phosphatase 103 U/L (34-104) 03/07/17 06:30 C-Reactive Protein 33.4 mg/dL (0.0-0.9) H 03/03/17 09:00 B-Natriuretic Peptide 4190.0 pg/mL (5.0-100.0) H 03/03/17 09:00 Total Protein 7.4 gm/dL (6.0-8.3) 03/07/17 06:30 Albumin 2.4 gm/dL (3.7-5.3) L 03/07/17 06:30 Globulin 5.0 gm/dL 03/07/17 06:30 Albumin/Globulin Ratio 0.5 (1.0-1.8) L 03/07/17 06:30 Triglycerides 134 mg/dL (<150) 03/03/17 09:00 Cholesterol 49 mg/dL (<200) 03/03/17 09:00 LDL Cholesterol Direct 9 mg/dL (75-193) L 03/03/17 09:00 HDL Cholesterol 17 mg/dL (23-92) L 03/03/17 09:00 TSH 4.04 uIU/ml (0.34-5.60) 03/03/17 09:00 Urine Source CATH 03/03/17 09:59 Urine Color YELLOW 03/03/17 09:59 Urine Clarity CLOUDY (CLEAR) H 03/03/17 09:59 Urine pH 6.0 (4.6 - 8.0) 03/03/17 09:59 Ur Specific [place] 1.010 (1.005-1.030) 03/03/17 09:59 Urine Protein 30 mg/dL (NEGATIVE) H 03/03/17 09:59 Urine Glucose (UA) 100 mg/dL (NEGATIVE) H 03/03/17 09:59 Urine Ketones NEGATIVE mg/dL (NEGATIVE) 03/03/17 09:59 Urine Blood LARGE (NEGATIVE) H 03/03/17 09:59 Urine Nitrate NEGATIVE (NEGATIVE) 03/03/17 09:59 Urine Bilirubin NEGATIVE (NEGATIVE) 03/03/17 09:59 Urine Urobilinogen 0.2 E.U./dL (0.2 - 1.0) 03/03/17 09:59 Ur Leukocyte Esterase LARGE (NEGATIVE) H 03/03/17 09:59 Urine RBC 5-10 /hpf (0-5) H 03/03/17 09:59 Urine WBC 10-25 /hpf (0-5) H 03/03/17 09:59 Ur Epithelial Cells MODERATE /lpf (FEW) 03/03/17 09:59 Urine Bacteria 3+ /hpf (NONE SEEN) H 03/03/17 09:59 Urine Yeast MODERATE /hpf (NONE SEEN) H 03/03/17 09:59 Stool Occult Blood NEGATIVE (NEGATIVE) 03/04/17 09:30 Vancomycin Trough 24.6 ug/mL (10-20) H 03/06/17 08:00 Blood Type B POSITIVE 03/03/17 09:00 Antibody Screen NEGATIVE 03/03/17 09:00 Crossmatch See Detail 03/03/17 09:00 - Physical Exam Vitals and I&O: Vital Signs Temp 97.2 F 03/07/17 08:00 Pulse 85 03/07/17 08:00 Resp 18 03/07/17 08:00 BP 104/56 03/07/17 08:00 Pulse Ox 100 03/07/17 08:00 Intake & Output 03/06/17 03/07/17 03/07/17 18:59 06:59 18:59 Intake Total 1090 1450 Output Total 1800 775 Balance -710 1450 -775 Weight (lbs) 68.492 kg 68.492 kg Intake: Intake, IV Amount 50 1450 Dextrose 5% 1,000 ml @ 50 1000 mls/hr IV .Q20H [facility] Rx#: [id number] Levofloxacin 500mg/100mL 100 500 mg In 100 ml @ 100 mls/hr IV Q24H [facility] Rx#: [id number] Piperacillin Sodium/ 50 100 Tazobact 3.375 gm In Sodium Chloride 0.9% 50 ml @ 100 mls/hr IV Q6HR [facility] Rx#:[id number] Vancomycin HCl 1 gm In 250 Sodium Chloride 0.9% 250 ml @ 165 mls/hr IV Q24HR@ 0900 [facility] Rx#:[id number] Tube Feeding 1040 Output: Urine 1000 775 Stool 800 Other: Stool Characteristics Soft Soft Soft Liquid Liquid Liquid Green Green Active Medications: Current Medications Carbidopa/Levodopa (Sinemet 25mg-100 Mg) 1 tab GT Q8HR [facility] Stop: 05/02/17 12:59 Last Admin: 03/07/17 04:20 Dose: 1 tab [place] Oil/[place] Balsam/Trypsin (Venelex) 1 appl TP DAILY [facility] Stop: 05/04/17 08:59 Last Admin: 03/07/17 09:39 Dose: 1 appl Docusate Sodium (Colace) 100 mg PO BID [facility] Stop: 05/02/17 16:59 Last Admin: 03/07/17 09:56 Dose: Not Given Donepezil HCl (Aricept) 10 mg GT HS [facility] Stop: 05/02/17 20:59 Last Admin: 03/06/17 22:20 Dose: 10 mg Ferrous Sulfate (Iron) 325 mg PO BID [facility] Stop: 05/03/17 16:59 Last Admin: 03/07/17 09:56 Dose: Not Given Heparin Sodium (Porcine) (Heparin) 5,000 units SUBQ Q12HR [facility] Stop: 05/02/17 20:59 Last Admin: 03/07/17 09:57 Dose: Not Given Dextrose (D5w) 1,000 mls @ 50 mls/hr IV .Q20H [facility] Stop: 05/03/17 08:29 Last Admin: 03/07/17 04:36 Dose: 50 mls/hr Levofloxacin (Levaquin Pb) 500 mg in 100 mls @ 100 mls/hr IV Q24H [facility] Stop: 05/03/17 10:59 Last Infusion: 03/06/17 19:13 Dose: Infused Piperacillin Sod/Tazobactam (Sod 3.375 gm/ Sodium Chloride) 50 mls @ 100 mls/ hr IV Q6HR [facility] Stop: 05/03/17 11:59 Last Admin: 03/07/17 05:30 Dose: 100 mls/hr Vancomycin HCl 0.75 gm/ Sodium (Chloride) 250 mls @ 165 mls/hr IV Q24H [facility] Stop: 05/06/17 08:59 Insulin Aspart (Novolog Insulin Sliding Scale) 0 units SUBQ ACHS [facility] PRN Reason: Protocol Stop: 05/03/17 11:29 Last Admin: 03/07/17 06:53 Dose: 4 units Insulin Detemir (Levemir Insulin) 25 units SUBQ HS [facility] PRN Reason: Protocol Stop: 05/02/17 20:59 Last Admin: 03/06/17 22:28 Dose: Not Given Insulin Detemir (Levemir Insulin) 5 units SUBQ QAM [facility] PRN Reason: Protocol Stop: 05/04/17 08:59 Last Admin: 03/07/17 09:57 Dose: Not Given Lactobacillus Rhamnosus (Culturelle 15b) 1 each PO DAILY [facility] Stop: 05/05/17 08:59 Last Admin: 03/07/17 09:58 Dose: Not Given Levetiracetam (Keppra) 500 mg PO Q8HR [facility] Stop: 05/02/17 12:59 Last Admin: 03/07/17 04:20 Dose: 500 mg Memantine (Namenda) 10 mg GT BID [facility] Stop: 05/02/17 16:59 Last Admin: 03/07/17 09:58 Dose: Not Given Miscellaneous (Vancomycin Iv Per Pharmacy) 1 ea PRN PRN PRN Reason: PROTOCOL Stop: 05/03/17 08:30 Miscellaneous (Probiotic Screen) 1 [facility] PRN PRN PRN Reason: PROTOCOL Stop: 05/04/17 16:59 Pantoprazole Sodium (Protonix) 40 mg IVP DAILY [facility] Stop: 05/04/17 09:59 Last Admin: 03/07/17 09:59 Dose: Not Given Risperidone (Risperdal) 0.5 mg PO BID [facility] Stop: 05/02/17 16:59 Last Admin: 03/07/17 09:59 Dose: Not Given General: no acute distress, well developed, well nourished HEENT: atraumatic, normocephalic, PERRLA, EOMI, moist mucous membrane Neck: supple Cardiovascular: S1S2, regular Lungs: clear to auscultation bilaterally, clear to percussion Abdomen: soft, no tender, no distended Extremities: no cyanosis, no clubbing, no edema Neurological: awake, alert, oriented Skin: intact - Procedures Procedures: Procedures Procedure Code Date CHANGE GASTROSTOMY TUBE 19270 06/25/12 INJECT/INFUSE NEC 99.29 09/11/07 INSERT PICC CATH 99641 12/19/11 INSERT TUNNELED CV CATH [id number] 07/08/07 OTHER ENDOSCOPY OF SM INTEST 45.13 05/05/10 PLACE NEEDLE IN VEIN 63196 07/08/07 REPLACE G/C TUBE PERC 69123 10/19/11 REPLACE GASTROSTOMY TUBE 97.02 06/25/12 TRANSABDOM ENDOSC OF SM INTES 45.11 09/11/07 VENOUS CATHETERIZATION NEC 38.93 12/19/11 VENOUS PUNCTURE NEC 38.99 07/08/07 Infectious Disease Assmt/Plan - Assessment Assessment: 1. UTI. 2. Multiple wounds, sacral decubitus. r/o oteomyelitis. 3. CVA. 4. DM2. 5. HTN. 6. Colostomy. - Plan Plan: will continue vanco IV and Zosyn. BKA today. wound care. Nutritional Asmnt/Malnutr-PDOC - Dietary Evaluation Malnutrition Findings (Please click <Entered> for more info): Nutritional Asmnt/Malnutrition Start: 03/04/17 18: 06 Text: Status: Complete Freq: Document 03/04/17 18:06 LCHENG (Rec: 03/04/17 18:19 LCHENG [email or web address]) Nutritional Asmnt/Malnutrition Patient General Information Nutritional Screening High Risk Consult Diagnosis urosepsis, dehydration Pertinent Medical Hx/Surgical Hx DM, schizophrenia, CVA, chronic anemia, dysphagia, vascular dementia, s/p colostomy, parkinson, CHF, CAD , UTI Subjective Information Consult received for florence Hamilton . Pt seen resting in bed at time of visit. Verified TF runnign at 55ml/hr at this time. Current Diet Order/ Nutrition Support Diabetisource 55ml/hr x 20hr Pertinent Medications D5w, colace, Iron, novolog, levemir, levaquin, piperacillin, protinix, vancomycin Pertinent Labs 03/04 Na 159, K 3.9, Cl 123, BUN 59, CR 1.1, Glucose 296, POC 245-363, Ca 9.4 03/03 A1c 10.2 Nutritional Hx/Data Height 1.63 m Height (Calculated Centimeters) 162.6 Current Weight (lbs) 68.039 kg Weight (Calculated Kilograms) 68.0 Weight (Calculated Grams) 26626.9 [place] Body Weight 120 % [place] Body Weight 125 Body Mass Index (BMI) 25.7 Weight Status Overweight GI Symptoms GI Symptoms None Last BM 03/03 x 3 Difficult in: None Skin Integrity/Comment: decubitus ulceration to sacrum Estimated Nutritional Goals BEE in Kcals: Adj wt of IBW Calories/Kcals/Kg 23-27 based on adj wt 58kg Kcals Calculated 0304-3365 considering bedbound Protein: Adj wt of IBW Protein g/k-1.2 Protein Calculated 58-70 Fluid: ml 1334-1566ml (1ml/kcal) Nutritional Problem 1. Problem Problem altered nutrition related lab values Etiology imbalanced electrolytes/fluid, hx of DM Signs/Symptoms: Na 159, Cl 123, BUN 59, Glucose 296, POC 245-363 Malnutrition Alert Protein-Calorie Malnutrition N/A Is there a minimum of two criteria No selected? Query Text:Check all the applicable criteria. A minimum of two criteria are recommended for diagnosis of either severe or non-severe malnutrition. Intervention/Recommendation Comments 1. Continue with current TF regimen. It provides 1320kcal, 66g protein, meeting 100% of nutritional needs 2. Monitor TF rate, tolerance, wt weekly, skin integrity and labs 3. F/U as moderate risk in 3-5 days, 03/07-03/09 Expected Outcomes/Goals Expected Outcomes/Goals 1. Pt to meet at least 75% of nutritional needs via nutrition support with tolerance 2. Wt stability, skin to remain intact, labs to approach WNL.
--- NOTE | 2017-03-07 12:54 | Internal Medicine Prog Note ---
Internal Medicine Subjective - Subjective Service Date: 03/07/17 Patient seen and examined:: with staff Internal Medicine Objective - Results Result Diagrams: 03/07/17 06:30 03/07/17 06:30 Recent Labs: Laboratory Last Values WBC 7.8 Th/cmm (4.8-10.8) 03/07/17 06:30 RBC 3.09 Mil/cmm (3.80-5.20) L 03/07/17 06:30 Hgb 8.5 gm/dL (12-16) L 03/07/17 06:30 Hct 27.5 % (41.0-60) L 03/07/17 06:30 MCV 88.9 fl (81-100) 03/07/17 06:30 MCH 27.3 pg (27.0-31.0) 03/07/17 06:30 MCHC Differential 30.7 pg (28.0-36.0) 03/07/17 06:30 RDW 21.4 % (11.5-20.0) H 03/07/17 06:30 Plt Count 192 Th/cmm (150-400) 03/07/17 06:30 MPV 9.8 fl 03/07/17 06:30 Neutrophils % 82.9 % (40.0-80.0) H 03/07/17 06:30 Band Neutrophils % 8 % (0-10) 03/04/17 05:35 Lymphocytes % 8.2 % (20.0-50.0) L 03/07/17 06:30 Monocytes % 7.0 % (2.0-10.0) 03/07/17 06:30 Eosinophils % 1.7 % (0.0-5.0) 03/07/17 06:30 Basophils % 0.2 % (0.0-2.0) 03/07/17 06:30 Neutrophils (Manual) 68 % (40-80) 03/04/17 05:35 Lymphocytes 17 % (20-50) L 03/04/17 05:35 Monocytes 3 % (2-10) 03/04/17 05:35 Eosinophils 3 % (0-5) 03/04/17 05:35 Nucleated RBCs 1.0 % (0-0) H 03/04/17 05:35 Anisocytosis 1+ 03/04/17 05:35 PT 11.9 SECONDS (9.5-11.5) H 03/03/17 09:00 INR 1.13 (0.5-1.4) 03/03/17 09:00 PTT (Actin FS) 36.6 SECONDS (26.0-38.0) 03/03/17 09:00 Sodium 150 mEq/L (136-145) H 03/07/17 06:30 Potassium 3.6 mEq/L (3.5-5.1) 03/07/17 06:30 Chloride 115 mEq/L (98-107) H 03/07/17 06:30 Carbon Dioxide 30.1 mEq/L (21.0-31.0) 03/07/17 06:30 Anion Gap 8.5 (7.0-16.0) 03/07/17 06:30 BUN 33 mg/dL (7-25) H 03/07/17 06:30 Creatinine 1.2 mg/dL (0.6-1.2) 03/07/17 06:30 Est GFR ( Amer) TNP 03/07/17 06:30 Est GFR (Non-Af Amer) TNP 03/07/17 06:30 BUN/Creatinine Ratio 27.5 03/07/17 06:30 Glucose 254 mg/dL (70-105) H 03/07/17 06:30 POC Glucose 229 MG/DL (70 - 105) H 03/05/17 16:32 Hemoglobin A1c % 10.2 % (4.0-6.0) H 03/03/17 09:00 Whole Bld Lactic Acid 2.20 mmol/L (0.60-1.99) H* 03/04/17 13:00 Calcium 9.0 mg/dL (8.6-10.3) 03/07/17 06:30 Iron 33 ug/dL (27-139) 03/03/17 09:00 TIBC 170 ug/dL (250-450) L 03/03/17 09:00 Iron Saturation 19 % (15-55) 03/03/17 09:00 Unsaturated IBC 137 ug/dL (118-369) 03/03/17 09:00 Ferritin 1421 ng/mL (15-150) H 03/03/17 09:00 Total Bilirubin 0.6 mg/dL (0.3-1.0) 03/07/17 06:30 Direct Bilirubin 0.06 mg/dL (0.0-0.2) 03/03/17 09:00 AST 20 U/L (13-39) 03/07/17 06:30 ALT 5 U/L (7-52) L 03/07/17 06:30 Alkaline Phosphatase 103 U/L (34-104) 03/07/17 06:30 C-Reactive Protein 33.4 mg/dL (0.0-0.9) H 03/03/17 09:00 B-Natriuretic Peptide 4190.0 pg/mL (5.0-100.0) H 03/03/17 09:00 Total Protein 7.4 gm/dL (6.0-8.3) 03/07/17 06:30 Albumin 2.4 gm/dL (3.7-5.3) L 03/07/17 06:30 Globulin 5.0 gm/dL 03/07/17 06:30 Albumin/Globulin Ratio 0.5 (1.0-1.8) L 03/07/17 06:30 Triglycerides 134 mg/dL (<150) 03/03/17 09:00 Cholesterol 49 mg/dL (<200) 03/03/17 09:00 LDL Cholesterol Direct 9 mg/dL (75-193) L 03/03/17 09:00 HDL Cholesterol 17 mg/dL (23-92) L 03/03/17 09:00 TSH 4.04 uIU/ml (0.34-5.60) 03/03/17 09:00 Urine Source CATH 03/03/17 09:59 Urine Color YELLOW 03/03/17 09:59 Urine Clarity CLOUDY (CLEAR) H 03/03/17 09:59 Urine pH 6.0 (4.6 - 8.0) 03/03/17 09:59 Ur Specific [place] 1.010 (1.005-1.030) 03/03/17 09:59 Urine Protein 30 mg/dL (NEGATIVE) H 03/03/17 09:59 Urine Glucose (UA) 100 mg/dL (NEGATIVE) H 03/03/17 09:59 Urine Ketones NEGATIVE mg/dL (NEGATIVE) 03/03/17 09:59 Urine Blood LARGE (NEGATIVE) H 03/03/17 09:59 Urine Nitrate NEGATIVE (NEGATIVE) 03/03/17 09:59 Urine Bilirubin NEGATIVE (NEGATIVE) 03/03/17 09:59 Urine Urobilinogen 0.2 E.U./dL (0.2 - 1.0) 03/03/17 09:59 Ur Leukocyte Esterase LARGE (NEGATIVE) H 03/03/17 09:59 Urine RBC 5-10 /hpf (0-5) H 03/03/17 09:59 Urine WBC 10-25 /hpf (0-5) H 03/03/17 09:59 Ur Epithelial Cells MODERATE /lpf (FEW) 03/03/17 09:59 Urine Bacteria 3+ /hpf (NONE SEEN) H 03/03/17 09:59 Urine Yeast MODERATE /hpf (NONE SEEN) H 03/03/17 09:59 Stool Occult Blood NEGATIVE (NEGATIVE) 03/04/17 09:30 Vancomycin Trough 24.6 ug/mL (10-20) H 03/06/17 08:00 Blood Type B POSITIVE 03/03/17 09:00 Antibody Screen NEGATIVE 03/03/17 09:00 Crossmatch See Detail 03/03/17 09:00 - Physical Exam Vitals and I&O: Vital Signs Temp 97.2 F 03/07/17 08:00 Pulse 85 03/07/17 08:00 Resp 18 03/07/17 08:00 BP 104/56 03/07/17 08:00 Pulse Ox 100 03/07/17 08:00 Intake & Output 03/06/17 03/07/17 03/07/17 18:59 06:59 18:59 Intake Total 1090 1450 Output Total 1800 775 Balance -710 1450 -775 Weight (lbs) 151 lb 151 lb Intake: Intake, IV Amount 50 1450 Dextrose 5% 1,000 ml @ 50 1000 mls/hr IV .Q20H [facility]ACK[facility] Rx#: [id number] Levofloxacin 500mg/100mL 100 500 mg In 100 ml @ 100 mls/hr IV Q24H [facility]ACK[facility] Rx#: [id number] Piperacillin Sodium/ 50 100 Tazobact 3.375 gm In Sodium Chloride 0.9% 50 ml @ 100 mls/hr IV Q6HR JACKIE Rx#:[id number] Vancomycin HCl 1 gm In 250 Sodium Chloride 0.9% 250 ml @ 165 mls/hr IV Q24HR@ 0900 [facility] Rx#:[id number] Tube Feeding 1040 Output: Urine 1000 775 Stool 800 Other: Stool Characteristics Soft Soft Soft Liquid Liquid Liquid Green Green Active Medications: Current Medications Carbidopa/Levodopa (Sinemet 25mg-100 Mg) 1 tab GT Q8HR [facility] Stop: 05/02/17 12:59 Last Admin: 03/07/17 04:20 Dose: 1 tab [place] [employer] Balsam/Trypsin (Venelex) 1 appl TP DAILY JACKIE Stop: 05/04/17 08:59 Last Admin: 03/07/17 09:39 Dose: 1 appl Docusate Sodium (Colace) 100 mg PO BID JACKIE Stop: 05/02/17 16:59 Last Admin: 03/07/17 09:56 Dose: Not Given Donepezil HCl (Aricept) 10 mg GT HS [facility] Stop: 05/02/17 20:59 Last Admin: 03/06/17 22:20 Dose: 10 mg Ferrous Sulfate (Iron) 325 mg PO BID JACKIE Stop: 05/03/17 16:59 Last Admin: 03/07/17 09:56 Dose: Not Given Heparin Sodium (Porcine) (Heparin) 5,000 units SUBQ Q12HR [facility] Stop: 05/02/17 20:59 Last Admin: 03/07/17 09:57 Dose: Not Given Dextrose (D5w) 1,000 mls @ 50 mls/hr IV .Q20H [facility] Stop: 05/03/17 08:29 Last Admin: 03/07/17 04:36 Dose: 50 mls/hr Levofloxacin (Levaquin Pb) 500 mg in 100 mls @ 100 mls/hr IV Q24H [facility] Stop: 05/03/17 10:59 Last Infusion: 03/06/17 19:13 Dose: Infused Piperacillin Sod/Tazobactam (Sod 3.375 gm/ Sodium Chloride) 50 mls @ 100 mls/ hr IV Q6HR [facility] Stop: 05/03/17 11:59 Last Admin: 03/07/17 05:30 Dose: 100 mls/hr Vancomycin HCl 0.75 gm/ Sodium (Chloride) 250 mls @ 165 mls/hr IV Q24H [facility] Stop: 05/06/17 08:59 Insulin Aspart (Novolog Insulin Sliding Scale) 0 units SUBQ ACHS [facility] PRN Reason: Protocol Stop: 03/24/18 11:29 Last Admin: 03/07/17 06:53 Dose: 4 units Insulin Detemir (Levemir Insulin) 25 units SUBQ HS [facility]ACK[facility] PRN Reason: Protocol Stop: 05/02/17 20:59 Last Admin: 03/06/17 22:28 Dose: Not Given Insulin Detemir (Levemir Insulin) 5 units SUBQ QAM [facility] PRN Reason: Protocol Stop: 05/04/17 08:59 Last Admin: 03/07/17 09:57 Dose: Not Given Lactobacillus Rhamnosus (Culturelle 15b) 1 each PO DAILY JACKIE Stop: 05/05/17 08:59 Last Admin: 03/07/17 09:58 Dose: Not Given Levetiracetam (Keppra) 500 mg PO Q8HR [facility]ACK[facility] Stop: 05/02/17 12:59 Last Admin: 03/07/17 04:20 Dose: 500 mg Memantine (Namenda) 10 mg GT BID [facility] Stop: 05/02/17 16:59 Last Admin: 03/07/17 09:58 Dose: Not Given Miscellaneous (Vancomycin Iv Per Pharmacy) 1 ea PRN PRN PRN Reason: PROTOCOL Stop: 05/03/17 08:30 Miscellaneous (Probiotic Screen) 1 ea PRN PRN PRN Reason: PROTOCOL Stop: 05/04/17 16:59 Pantoprazole Sodium (Protonix) 40 mg IVP DAILY [facility] Stop: 05/04/17 09:59 Last Admin: 03/07/17 09:59 Dose: Not Given Risperidone (Risperdal) 0.5 mg PO BID [facility] Stop: 05/02/17 16:59 Last Admin: 03/07/17 09:59 Dose: Not Given - Procedures Procedures: Procedures Procedure Code Date CHANGE GASTROSTOMY TUBE 53859 06/25/12 INJECT/INFUSE NEC 99.29 09/11/07 INSERT PICC CATH 40496 12/19/11 INSERT TUNNELED CV CATH 62624 07/08/07 OTHER ENDOSCOPY OF SM INTEST 45.13 05/05/10 PLACE NEEDLE IN VEIN 22027 07/08/07 REPLACE G/C TUBE PERC 32673 10/19/11 REPLACE GASTROSTOMY TUBE 97.02 06/25/12 TRANSABDOM ENDOSC OF SM INTES 45.11 09/11/07 VENOUS CATHETERIZATION NEC 38.93 12/19/11 VENOUS PUNCTURE NEC 38.99 05/28/08 Nutritional Asmnt/Malnutr-PDOC - Dietary Evaluation Malnutrition Findings (Please click <Entered> for more info): Nutritional Asmnt/Malnutrition Start: 03/04/17 18: 06 Text: Status: Complete Freq: Document 03/04/17 18:06 LCBERE (Rec: 03/04/17 18:19 [email or web address] [email or web address]) Nutritional Asmnt/Malnutrition Patient General Information Nutritional Screening High Risk Consult Diagnosis urosepsis, dehydration Pertinent Medical Hx/Surgical Hx DM, schizophrenia, CVA, chronic anemia, dysphagia, vascular dementia, s/p colostomy, parkinson, CHF, CAD , UTI Subjective Information Consult received for florence Hamilton . Pt seen resting in bed at time of visit. Verified TF runnign at 55ml/hr at this time. Current Diet Order/ Nutrition Support Diabetisource 55ml/hr x 20hr Pertinent Medications D5w, colace, Iron, novolog, levemir, levaquin, piperacillin, protinix, vancomycin Pertinent Labs 03/04 Na 159, K 3.9, Cl 123, BUN 59, CR 1.1, Glucose 296, POC 245-363, Ca 9.4 03/03 A1c 10.2 Nutritional Hx/Data Height 5 ft 4 in Height (Calculated Centimeters) 162.6 Current Weight (lbs) 150 lb Weight (Calculated Kilograms) 68.0 Weight (Calculated Grams) 70932.9 [place] Body Weight 120 % [place] Body Weight 125 Body Mass Index (BMI) 25.7 Weight Status Overweight GI Symptoms GI Symptoms None Last BM 03/03 x 3 Difficult in: None Skin Integrity/Comment: decubitus ulceration to sacrum Estimated Nutritional Goals BEE in Kcals: Adj wt of IBW Calories/Kcals/Kg 23-27 based on adj wt 58kg Kcals Calculated 4096-2570 considering bedbound Protein: Adj wt of IBW Protein g/k-1.2 Protein Calculated 58-70 Fluid: ml 1334-1566ml (1ml/kcal) Nutritional Problem 1. Problem Problem altered nutrition related lab values Etiology imbalanced electrolytes/fluid, hx of DM Signs/Symptoms: Na 159, Cl 123, BUN 59, Glucose 296, POC 245-363 Malnutrition Alert Protein-Calorie Malnutrition N/A Is there a minimum of two criteria No selected? Query Text:Check all the applicable criteria. A minimum of two criteria are recommended for diagnosis of either severe or non-severe malnutrition. Intervention/Recommendation Comments 1. Continue with current TF regimen. It provides 1320kcal, 66g protein, meeting 100% of nutritional needs 2. Monitor TF rate, tolerance, wt weekly, skin integrity and labs 3. F/U as moderate risk in 3-5 days, 03/07-03/09 Expected Outcomes/Goals Expected Outcomes/Goals 1. Pt to meet at least 75% of nutritional needs via nutrition support with tolerance 2. Wt stability, skin to remain intact, labs to approach WNL.
[2017-03-07] MEDS: Levofloxacin 500mg/100mL 500 MG/100 ML BAG IV SCH (18:18)
[2017-03-08] MEDS: Morphine Sulfate 2 mg/mL 1mL Syr IVP PRN ×3 (01:14→23:46)
--- NOTE | 2017-03-08 02:08 | Operative Report ---
DATE OF SURGERY: 03/07/2017 PREOPERATIVE DIAGNOSES: 1. Gangrene of the left foot. 2. Gangrene of the right foot. 3. Stage 4 sacral decubitus ulcer. 4. Peripheral vascular disease. 5. Diabetes mellitus. 6. Parkinson disease. POSTOPERATIVE DIAGNOSES: 1. Gangrene of the left foot. 2. Gangrene of the right foot. 3. Stage 4 sacral decubitus ulcer. 4. Peripheral vascular disease. 5. Diabetes mellitus. 6. Parkinson disease. OPERATION DONE: 1. Right below-knee amputation. 2. Left below-knee amputation. 3. Excisional debridement of sacral decubitus ulcer, stage 3. SURGEON: Yanely Bates M.D. POULTRY HATCHERY MANAGER: Dr. Tang. ANESTHESIA: General anesthesia. ANESTHESIOLOGIST: Giuseppe. ESTIMATED BLOOD LOSS: 50 mL. DESCRIPTION OF PROCEDURE: The patient was given general anesthesia. This was after failed attempt at Spinal. Both lower extremities were prepped with Betadine and draped in appropriate manner. Below-knee amputation was made first on the left side. The incision was made approximately 6 inches below the knee anteriorly. This was carried all the way down to the fascia. The bone was exposed and stripped over the periosteum and transected apart 1-1/2 inches above the initial skin incision. The fibula was transected 1 cm above this. The posterior muscle layers were then transected sharply with a knife and all bleeders were identified and suture ligated or cauterized. The anterior aspect of the left tibia was transected. Irrigation was carried out. Incision was closed with interrupted sutures of 3-0 Vicryl for the fascia following placement of a Henrry-Butt drain. The skin was closed with amina and compression dressing was made utilizing Coban. The same procedure was repeated on the contralateral side. The patient was then placed on the left lateral decubitus position and the ulcer stage 3, measuring 8 x 10 cm were excised. Because of its shallow condition, no wound VAC was applied. A sterile dressing and Optifoam was applied. The patient tolerated the procedure well. JOB# [id number]
[2017-03-08] MEDS: Levofloxacin 500mg/100mL 500 MG/100 ML BAG IV SCH (05:40)
--- NOTE | 2017-03-08 06:16 | General Progress Note ---
Subjective - Review of Systems Service Date: 03/08/17 Subjective: Patient is awake, alert, no acute distress. Patient recently underwent Arterial Doppler US and Bone Scan ... please see dictated report. S/p bilateral BKA and debridement of sacral decubitus ulcer. No acute distress. labs pending this AM. Objective - Results Result Diagrams: 03/07/17 06:30 03/07/17 06:30 Recent Labs: Laboratory Last Values WBC 7.8 Th/cmm (4.8-10.8) 03/07/17 06:30 RBC 3.09 Mil/cmm (3.80-5.20) L 03/07/17 06:30 Hgb 8.5 gm/dL (12-16) L 03/07/17 06:30 Hct 27.5 % (41.0-60) L 03/07/17 06:30 MCV 88.9 fl (81-100) 03/07/17 06:30 MCH 27.3 pg (27.0-31.0) 03/07/17 06:30 MCHC Differential 30.7 pg (28.0-36.0) 03/07/17 06:30 RDW 21.4 % (11.5-20.0) H 03/07/17 06:30 Plt Count 192 Th/cmm (150-400) 03/07/17 06:30 MPV 9.8 fl 03/07/17 06:30 Neutrophils % 82.9 % (40.0-80.0) H 03/07/17 06:30 Band Neutrophils % 8 % (0-10) 03/04/17 05:35 Lymphocytes % 8.2 % (20.0-50.0) L 03/07/17 06:30 Monocytes % 7.0 % (2.0-10.0) 03/07/17 06:30 Eosinophils % 1.7 % (0.0-5.0) 03/07/17 06:30 Basophils % 0.2 % (0.0-2.0) 03/07/17 06:30 Neutrophils (Manual) 68 % (40-80) 03/04/17 05:35 Lymphocytes 17 % (20-50) L 03/04/17 05:35 Monocytes 3 % (2-10) 03/04/17 05:35 Eosinophils 3 % (0-5) 03/04/17 05:35 Nucleated RBCs 1.0 % (0-0) H 03/04/17 05:35 Anisocytosis 1+ 03/04/17 05:35 PT 11.9 SECONDS (9.5-11.5) H 03/03/17 09:00 INR 1.13 (0.5-1.4) 03/03/17 09:00 PTT (Actin FS) 36.6 SECONDS (26.0-38.0) 03/03/17 09:00 Sodium 150 mEq/L (136-145) H 03/07/17 06:30 Potassium 3.6 mEq/L (3.5-5.1) 03/07/17 06:30 Chloride 115 mEq/L (98-107) H 03/07/17 06:30 Carbon Dioxide 30.1 mEq/L (21.0-31.0) 03/07/17 06:30 Anion Gap 8.5 (7.0-16.0) 03/07/17 06:30 BUN 33 mg/dL (7-25) H 03/07/17 06:30 Creatinine 1.2 mg/dL (0.6-1.2) 03/07/17 06:30 Est GFR ( Amer) TNP 03/07/17 06:30 Est GFR (Non-Af Amer) TNP 03/07/17 06:30 BUN/Creatinine Ratio 27.5 03/07/17 06:30 Glucose 254 mg/dL (70-105) H 03/07/17 06:30 POC Glucose 300 MG/DL (70 - 105) H 03/08/17 05:16 Hemoglobin A1c % 10.2 % (4.0-6.0) H 03/03/17 09:00 Whole Bld Lactic Acid 2.20 mmol/L (0.60-1.99) H* 03/04/17 13:00 Calcium 9.0 mg/dL (8.6-10.3) 03/07/17 06:30 Iron 33 ug/dL (27-139) 03/03/17 09:00 TIBC 170 ug/dL (250-450) L 03/03/17 09:00 Iron Saturation 19 % (15-55) 03/03/17 09:00 Unsaturated IBC 137 ug/dL (118-369) 03/03/17 09:00 Ferritin 1421 ng/mL (15-150) H 03/03/17 09:00 Total Bilirubin 0.6 mg/dL (0.3-1.0) 03/07/17 06:30 Direct Bilirubin 0.06 mg/dL (0.0-0.2) 03/03/17 09:00 AST 20 U/L (13-39) 03/07/17 06:30 ALT 5 U/L (7-52) L 03/07/17 06:30 Alkaline Phosphatase 103 U/L (34-104) 03/07/17 06:30 C-Reactive Protein 33.4 mg/dL (0.0-0.9) H 03/03/17 09:00 B-Natriuretic Peptide 4190.0 pg/mL (5.0-100.0) H 03/03/17 09:00 Total Protein 7.4 gm/dL (6.0-8.3) 03/07/17 06:30 Albumin 2.4 gm/dL (3.7-5.3) L 03/07/17 06:30 Globulin 5.0 gm/dL 03/07/17 06:30 Albumin/Globulin Ratio 0.5 (1.0-1.8) L 03/07/17 06:30 Triglycerides 134 mg/dL (<150) 03/03/17 09:00 Cholesterol 49 mg/dL (<200) 03/03/17 09:00 LDL Cholesterol Direct 9 mg/dL (75-193) L 03/03/17 09:00 HDL Cholesterol 17 mg/dL (23-92) L 03/03/17 09:00 TSH 4.04 uIU/ml (0.34-5.60) 03/03/17 09:00 Urine Source CATH 03/03/17 09:59 Urine Color YELLOW 03/03/17 09:59 Urine Clarity CLOUDY (CLEAR) H 03/03/17 09:59 Urine pH 6.0 (4.6 - 8.0) 03/03/17 09:59 Ur Specific [place] 1.010 (1.005-1.030) 03/03/17 09:59 Urine Protein 30 mg/dL (NEGATIVE) H 03/03/17 09:59 Urine Glucose (UA) 100 mg/dL (NEGATIVE) H 03/03/17 09:59 Urine Ketones NEGATIVE mg/dL (NEGATIVE) 03/03/17 09:59 Urine Blood LARGE (NEGATIVE) H 03/03/17 09:59 Urine Nitrate NEGATIVE (NEGATIVE) 03/03/17 09:59 Urine Bilirubin NEGATIVE (NEGATIVE) 03/03/17 09:59 Urine Urobilinogen 0.2 E.U./dL (0.2 - 1.0) 03/03/17 09:59 Ur Leukocyte Esterase LARGE (NEGATIVE) H 03/03/17 09:59 Urine RBC 5-10 /hpf (0-5) H 03/03/17 09:59 Urine WBC 10-25 /hpf (0-5) H 03/03/17 09:59 Ur Epithelial Cells MODERATE /lpf (FEW) 03/03/17 09:59 Urine Bacteria 3+ /hpf (NONE SEEN) H 03/03/17 09:59 Urine Yeast MODERATE /hpf (NONE SEEN) H 03/03/17 09:59 Stool Occult Blood NEGATIVE (NEGATIVE) 03/04/17 09:30 Vancomycin Trough 24.6 ug/mL (10-20) H 03/06/17 08:00 Blood Type B POSITIVE 03/03/17 09:00 Antibody Screen NEGATIVE 03/03/17 09:00 Crossmatch See Detail 03/03/17 09:00 - Physical Exam Vitals and I&O: Vital Signs Temp 97 F 03/08/17 04:00 Pulse 88 03/08/17 04:00 Resp 19 03/08/17 04:00 BP 104/46 03/08/17 04:00 Pulse Ox 97 03/08/17 04:00 Intake & Output 03/07/17 03/07/17 03/08/17 06:59 18:59 06:59 Intake Total 1500 50 500 Output Total 775 800 Balance 1500 -725 -300 Weight (lbs) 68.492 kg 75.886 kg Intake: Intake, IV Amount 1500 50 500 Dextrose 5% 1,000 ml @ 50 1000 mls/hr IV .Q20H [facility] Rx#: [id number] Levofloxacin 500mg/100mL 100 100 500 mg In 100 ml @ 100 mls/hr IV Q24H [facility] Rx#: [id number] Piperacillin Sodium/ 150 50 150 Tazobact 3.375 gm In Sodium Chloride 0.9% 50 ml @ 100 mls/hr IV Q6HR [facility] Rx#:[id number] Vancomycin HCl 0.75 gm In 250 Sodium Chloride 0.9% 250 ml @ 165 mls/hr IV Q24H [facility] Rx#:[id number] Vancomycin HCl 1 gm In 250 Sodium Chloride 0.9% 250 ml @ 165 mls/hr IV Q24HR@ 0900 [facility] Rx#:[id number] Output: Urine 775 800 Other: Stool Characteristics Soft Soft Soft Liquid Liquid Formed Green Green Active Medications: Current Medications Carbidopa/Levodopa (Sinemet 25mg-100 Mg) 1 tab GT Q8HR [facility] Stop: 05/02/17 12:59 Last Admin: 03/08/17 04:03 Dose: 1 tab [place] Oil/[place] Balsam/Trypsin (Venelex) 1 appl TP DAILY [facility] Stop: 05/04/17 08:59 Last Admin: 03/07/17 09:39 Dose: 1 appl Docusate Sodium (Colace) 100 mg PO BID [facility] Stop: 05/02/17 16:59 Last Admin: 03/07/17 18:17 Dose: 100 mg Donepezil HCl (Aricept) 10 mg GT HS [facility] Stop: 05/02/17 20:59 Last Admin: 03/07/17 20:24 Dose: 10 mg Ferrous Sulfate (Iron) 325 mg PO BID [facility] Stop: 05/03/17 16:59 Last Admin: 03/07/17 18:17 Dose: 325 mg Heparin Sodium (Porcine) (Heparin) 5,000 units SUBQ Q12HR [facility] Stop: 05/02/17 20:59 Last Admin: 03/07/17 20:24 Dose: 5,000 units Dextrose (D5w) 1,000 mls @ 50 mls/hr IV .Q20H [facility] Stop: 05/03/17 08:29 Last Admin: 03/07/17 04:36 Dose: 50 mls/hr Piperacillin Sod/Tazobactam (Sod 3.375 gm/ Sodium Chloride) 50 mls @ 100 mls/ hr IV Q6HR [facility] Stop: 05/03/17 11:59 Last Infusion: 03/08/17 05:52 Dose: Infused Vancomycin HCl 0.75 gm/ Sodium (Chloride) 250 mls @ 165 mls/hr IV Q24H [facility] Stop: 05/06/17 08:59 Last Infusion: 03/07/17 19:48 Dose: Infused Levofloxacin (Levaquin Pb) 500 mg in 100 mls @ 100 mls/hr IV Q24H [facility] Stop: 05/08/17 04:59 Insulin Aspart (Novolog Insulin Sliding Scale) 0 units SUBQ ACHS [facility] PRN Reason: Protocol Stop: 05/03/17 11:29 Last Admin: 03/07/17 20:24 Dose: Not Given Insulin Detemir (Levemir Insulin) 25 units SUBQ HS [facility] PRN Reason: Protocol Stop: 05/02/17 20:59 Last Admin: 03/07/17 20:25 Dose: Not Given Insulin Detemir (Levemir Insulin) 5 units SUBQ QAM [facility] PRN Reason: Protocol Stop: 05/04/17 08:59 Last Admin: 03/07/17 09:57 Dose: Not Given Lactobacillus Rhamnosus (Culturelle 15b) 1 each PO DAILY [facility] Stop: 05/05/17 08:59 Last Admin: 03/07/17 09:58 Dose: Not Given Levetiracetam (Keppra) 500 mg PO Q8HR [facility] Stop: 05/02/17 12:59 Last Admin: 03/08/17 04:03 Dose: 500 mg Memantine (Namenda) 10 mg GT BID [facility] Stop: 05/02/17 16:59 Last Admin: 03/07/17 18:18 Dose: 10 mg Miscellaneous (Vancomycin Iv Per Pharmacy) 1 ea [facility] PRN PRN PRN Reason: PROTOCOL Stop: 05/03/17 08:30 Miscellaneous (Probiotic Screen) 1 ea PRN PRN PRN Reason: PROTOCOL Stop: 05/04/17 16:59 Morphine Sulfate (Morphine) 1 mg IVP Q4HR PRN PRN Reason: Pain (Moderate) Stop: 05/06/17 22:09 Last Admin: 03/08/17 01:14 Dose: 1 mg Pantoprazole Sodium (Protonix) 40 mg IVP DAILY [facility] Stop: 05/04/17 09:59 Last Admin: 03/07/17 09:59 Dose: Not Given Risperidone (Risperdal) 0.5 mg PO BID [facility] Stop: 05/02/17 16:59 Last Admin: 03/07/17 18:18 Dose: 0.5 mg General: Alert, No acute distress HEENT: Atraumatic, PERRLA, EOMI Neck: Supple, JVD Cardiovascular: Regular rate, Normal S1, Normal S2 Lungs: Clear to auscultation Abdomen: Bowel sounds, Soft Extremities: Clubbing Neurological: Normal gait, Normal speech - Procedures Procedures: Procedures Procedure Code Date CHANGE GASTROSTOMY TUBE 57080 06/25/12 INJECT/INFUSE NEC 99.29 09/11/07 INSERT PICC CATH 65849 12/19/11 INSERT TUNNELED CV CATH 58460 07/08/07 OTHER ENDOSCOPY OF SM INTEST 45.13 05/05/10 PLACE NEEDLE IN VEIN 22684 07/08/07 REPLACE G/C TUBE PERC 34314 10/19/11 REPLACE GASTROSTOMY TUBE 97.02 06/25/12 TRANSABDOM ENDOSC OF SM INTES 45.11 09/11/07 VENOUS CATHETERIZATION NEC 38.93 12/19/11 VENOUS PUNCTURE NEC 38.99 07/08/07 Assessment/Plan - Assessment Assessment: sepsis vs urosepsis hypernatremia elevated BNP acute on chronic anemia r/o GIB diabetes mellitus type 2 schizophrenia CVA w/ right sided hemiplegia h/o UTI s/p colostomy parkinson's disease hypothyroidism vascular dementia dysphagia CHF CAD peripheral vascular disease 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 UTI +Aerococcus - Plan Plan: General Surgery consult -- Dr. Bates. Will need surgical procedure for possible BKA. ID consult -- Dr. Regan Garcia Cardiology consult -- Dr. Garcia GI Consult -- Dr. Boone repeat CBC, CMP continue IV anitbiotics .. IV Zosyn, IV Vancomycin Blood culture pending, Urine Cultures pending LTAC evaluation and treatment. Nutritional Asmnt/Malnutr-PDOC - Dietary Evaluation Malnutrition Findings (Please click <Entered> for more info): Nutritional Asmnt/Malnutrition Start: 03/04/17 18: 06 Text: Status: Complete Freq: Document 03/04/17 18:06 [id number] (Rec: 03/04/17 18:19 [email or web address] [email or web address]) Nutritional Asmnt/Malnutrition Patient General Information Nutritional Screening High Risk Consult Diagnosis urosepsis, dehydration Pertinent Medical Hx/Surgical Hx DM, schizophrenia, CVA, chronic anemia, dysphagia, vascular dementia, s/p colostomy, parkinson, CHF, CAD , UTI Subjective Information Consult received for florence 10 . Pt seen resting in bed at time of visit. Verified TF runnign at 55ml/hr at this time. Current Diet Order/ Nutrition Support Diabetisource 55ml/hr x 20hr Pertinent Medications D5w, colace, Iron, novolog, levemir, levaquin, piperacillin, protinix, vancomycin Pertinent Labs 03/04 Na 159, K 3.9, Cl 123, BUN 59, CR 1.1, Glucose 296, POC 245-363, Ca 9.4 03/03 A1c 10.2 Nutritional Hx/Data Height 1.63 m Height (Calculated Centimeters) 162.6 Current Weight (lbs) 68.039 kg Weight (Calculated Kilograms) 68.0 Weight (Calculated Grams) 37877.9 [place] Body Weight 120 % [place] Body Weight 125 Body Mass Index (BMI) 25.7 Weight Status Overweight GI Symptoms GI Symptoms None Last BM 03/03 x 3 Difficult in: None Skin Integrity/Comment: decubitus ulceration to sacrum Estimated Nutritional Goals BEE in Kcals: Adj wt of IBW Calories/Kcals/Kg - based on adj wt 58kg Kcals Calculated 0439-1330 considering bedbound Protein: Adj wt of IBW Protein g/k-1.2 Protein Calculated 58-70 Fluid: ml 1334-1566ml (1ml/kcal) Nutritional Problem 1. Problem Problem altered nutrition related lab values Etiology imbalanced electrolytes/fluid, hx of DM Signs/Symptoms: Na 159, Cl 123, BUN 59, Glucose 296, POC 245-363 Malnutrition Alert Protein-Calorie Malnutrition N/A Is there a minimum of two criteria No selected? Query Text:Check all the applicable criteria. A minimum of two criteria are recommended for diagnosis of either severe or non-severe malnutrition. Intervention/Recommendation Comments 1. Continue with current TF regimen. It provides 1320kcal, 66g protein, meeting 100% of nutritional needs 2. Monitor TF rate, tolerance, wt weekly, skin integrity and labs 3. F/U as moderate risk in 3-5 days, 03/07-03/09 Expected Outcomes/Goals Expected Outcomes/Goals 1. Pt to meet at least 75% of nutritional needs via nutrition support with tolerance 2. Wt stability, skin to remain intact, labs to approach WNL.
[2017-03-08] MEDS: INSULIN ASPART SLIDING SCALE 100 UNITS/ML UNIT SUBQ SCH ×4 (06:43→22:00)
[2017-03-08] MEDS: Lactobacillus Rhamnosus GG 15 Billion CFU CAP.SPRINK PO SCH (09:20)
[2017-03-08] MEDS: Ferrous Sulfate 325 MG TAB PO SCH ×2 (09:20→16:23)
[2017-03-08] MEDS: Multivitamin w/ Minerals Tab GT SCH (09:20)
[2017-03-08] MEDS: Venelex 60gm Tube TP SCH (09:21)
[2017-03-08] MEDS: Insulin Detemir 100 units/mL 10mL Vial SUBQ SCH ×2 (09:30→22:10)
[2017-03-08] MEDS: VANCOMYCIN HCL IV SCH (09:36)
[2017-03-08] MEDS: DEXTROSE 5% IV SCH (09:36)
--- NOTE | 2017-03-08 12:55 | General Progress Note ---
Subjective - Review of Systems Service Date: 03/08/17 Events since last encounter: labs ok dressings dry with minimal JOHANA drainage might start PT Objective - Results Result Diagrams: 03/07/17 06:30 03/07/17 06:30 Recent Labs: Laboratory Last Values WBC 7.8 Th/cmm (4.8-10.8) 03/07/17 06:30 RBC 3.09 Mil/cmm (3.80-5.20) L 03/07/17 06:30 Hgb 8.5 gm/dL (12-16) L 03/07/17 06:30 Hct 27.5 % (41.0-60) L 03/07/17 06:30 MCV 88.9 fl (81-100) 03/07/17 06:30 MCH 27.3 pg (27.0-31.0) 03/07/17 06:30 MCHC Differential 30.7 pg (28.0-36.0) 03/07/17 06:30 RDW 21.4 % (11.5-20.0) H 03/07/17 06:30 Plt Count 192 Th/cmm (150-400) 03/07/17 06:30 MPV 9.8 fl 03/07/17 06:30 Neutrophils % 82.9 % (40.0-80.0) H 03/07/17 06:30 Band Neutrophils % 8 % (0-10) 03/04/17 05:35 Lymphocytes % 8.2 % (20.0-50.0) L 03/07/17 06:30 Monocytes % 7.0 % (2.0-10.0) 03/07/17 06:30 Eosinophils % 1.7 % (0.0-5.0) 03/07/17 06:30 Basophils % 0.2 % (0.0-2.0) 03/07/17 06:30 Neutrophils (Manual) 68 % (40-80) 03/04/17 05:35 Lymphocytes 17 % (20-50) L 03/04/17 05:35 Monocytes 3 % (2-10) 03/04/17 05:35 Eosinophils 3 % (0-5) 03/04/17 05:35 Nucleated RBCs 1.0 % (0-0) H 03/04/17 05:35 Anisocytosis 1+ 03/04/17 05:35 PT 11.9 SECONDS (9.5-11.5) H 03/03/17 09:00 INR 1.13 (0.5-1.4) 03/03/17 09:00 PTT (Actin FS) 36.6 SECONDS (26.0-38.0) 03/03/17 09:00 Sodium 150 mEq/L (136-145) H 03/07/17 06:30 Potassium 3.6 mEq/L (3.5-5.1) 03/07/17 06:30 Chloride 115 mEq/L (98-107) H 03/07/17 06:30 Carbon Dioxide 30.1 mEq/L (21.0-31.0) 03/07/17 06:30 Anion Gap 8.5 (7.0-16.0) 03/07/17 06:30 BUN 33 mg/dL (7-25) H 03/07/17 06:30 Creatinine 1.2 mg/dL (0.6-1.2) 03/07/17 06:30 Est GFR ( Amer) TNP 03/07/17 06:30 Est GFR (Non-Af Amer) TNP 03/07/17 06:30 BUN/Creatinine Ratio 27.5 03/07/17 06:30 Glucose 254 mg/dL (70-105) H 03/07/17 06:30 POC Glucose 238 MG/DL (70 - 105) H 03/08/17 12:05 Hemoglobin A1c % 10.2 % (4.0-6.0) H 03/03/17 09:00 Whole Bld Lactic Acid 2.20 mmol/L (0.60-1.99) H* 03/04/17 13:00 Calcium 9.0 mg/dL (8.6-10.3) 03/07/17 06:30 Iron 33 ug/dL (27-139) 03/03/17 09:00 TIBC 170 ug/dL (250-450) L 03/03/17 09:00 Iron Saturation 19 % (15-55) 03/03/17 09:00 Unsaturated IBC 137 ug/dL (118-369) 03/03/17 09:00 Ferritin 1421 ng/mL (15-150) H 03/03/17 09:00 Total Bilirubin 0.6 mg/dL (0.3-1.0) 03/07/17 06:30 Direct Bilirubin 0.06 mg/dL (0.0-0.2) 03/03/17 09:00 AST 20 U/L (13-39) 03/07/17 06:30 ALT 5 U/L (7-52) L 03/07/17 06:30 Alkaline Phosphatase 103 U/L (34-104) 03/07/17 06:30 C-Reactive Protein 33.4 mg/dL (0.0-0.9) H 03/03/17 09:00 B-Natriuretic Peptide 4190.0 pg/mL (5.0-100.0) H 03/03/17 09:00 Total Protein 7.4 gm/dL (6.0-8.3) 03/07/17 06:30 Albumin 2.4 gm/dL (3.7-5.3) L 03/07/17 06:30 Globulin 5.0 gm/dL 03/07/17 06:30 Albumin/Globulin Ratio 0.5 (1.0-1.8) L 03/07/17 06:30 Triglycerides 134 mg/dL (<150) 03/03/17 09:00 Cholesterol 49 mg/dL (<200) 03/03/17 09:00 LDL Cholesterol Direct 9 mg/dL (75-193) L 03/03/17 09:00 HDL Cholesterol 17 mg/dL (23-92) L 03/03/17 09:00 TSH 4.04 uIU/ml (0.34-5.60) 03/03/17 09:00 Urine Source CATH 03/03/17 09:59 Urine Color YELLOW 03/03/17 09:59 Urine Clarity CLOUDY (CLEAR) H 03/03/17 09:59 Urine pH 6.0 (4.6 - 8.0) 03/03/17 09:59 Ur Specific [place] 1.010 (1.005-1.030) 03/03/17 09:59 Urine Protein 30 mg/dL (NEGATIVE) H 03/03/17 09:59 Urine Glucose (UA) 100 mg/dL (NEGATIVE) H 03/03/17 09:59 Urine Ketones NEGATIVE mg/dL (NEGATIVE) 03/03/17 09:59 Urine Blood LARGE (NEGATIVE) H 03/03/17 09:59 Urine Nitrate NEGATIVE (NEGATIVE) 03/03/17 09:59 Urine Bilirubin NEGATIVE (NEGATIVE) 03/03/17 09:59 Urine Urobilinogen 0.2 E.U./dL (0.2 - 1.0) 03/03/17 09:59 Ur Leukocyte Esterase LARGE (NEGATIVE) H 03/03/17 09:59 Urine RBC 5-10 /hpf (0-5) H 03/03/17 09:59 Urine WBC 10-25 /hpf (0-5) H 03/03/17 09:59 Ur Epithelial Cells MODERATE /lpf (FEW) 03/03/17 09:59 Urine Bacteria 3+ /hpf (NONE SEEN) H 03/03/17 09:59 Urine Yeast MODERATE /hpf (NONE SEEN) H 03/03/17 09:59 Stool Occult Blood NEGATIVE (NEGATIVE) 03/04/17 09:30 Vancomycin Trough 24.6 ug/mL (10-20) H 03/06/17 08:00 Blood Type B POSITIVE 03/03/17 09:00 Antibody Screen NEGATIVE 03/03/17 09:00 Crossmatch See Detail 03/03/17 09:00 - Physical Exam Vitals and I&O: Vital Signs Temp 97 F 03/08/17 10:50 Pulse 65 03/08/17 10:50 Resp 18 03/08/17 10:50 BP 104/55 03/08/17 10:50 Pulse Ox 98 03/08/17 10:50 Intake & Output 03/07/17 03/08/17 03/08/17 18:59 06:59 18:59 Intake Total 50 500 Output Total 775 900 Balance -725 -400 Weight (lbs) 68.492 kg 75.75 kg Intake: Intake, IV Amount 50 500 Levofloxacin 500mg/100mL 100 500 mg In 100 ml @ 100 mls/hr IV Q24H [facility] Rx#: [id number] Piperacillin Sodium/ 50 150 Tazobact 3.375 gm In Sodium Chloride 0.9% 50 ml @ 100 mls/hr IV Q6HR [facility] Rx#:[id number] Vancomycin HCl 0.75 gm In 250 Sodium Chloride 0.9% 250 ml @ 165 mls/hr IV Q24H [facility] Rx#:[id number] Output: Drainage 100 Left Thigh 25 Right Thigh 75 Urine 775 800 Other: Stool Characteristics Soft Soft Soft Liquid Formed Formed Green Active Medications: Current Medications Carbidopa/Levodopa (Sinemet 25mg-100 Mg) 1 tab GT Q8HR [facility] Stop: 05/02/17 12:59 Last Admin: 03/08/17 04:03 Dose: 1 tab [place] Oil/[place] Balsam/Trypsin (Venelex) 1 appl TP DAILY [facility] Stop: 05/04/17 08:59 Last Admin: 03/08/17 09:21 Dose: 1 appl Docusate Sodium (Colace) 100 mg PO BID [facility] Stop: 05/02/17 16:59 Last Admin: 03/08/17 09:20 Dose: 100 mg Donepezil HCl (Aricept) 10 mg GT HS [facility] Stop: 05/02/17 20:59 Last Admin: 03/07/17 20:24 Dose: 10 mg Ferrous Sulfate (Iron) 325 mg PO BID [facility] Stop: 05/03/17 16:59 Last Admin: 03/08/17 09:20 Dose: 325 mg Heparin Sodium (Porcine) (Heparin) 5,000 units SUBQ Q12HR [facility] Stop: 05/02/17 20:59 Last Admin: 03/08/17 09:31 Dose: 5,000 units Dextrose (D5w) 1,000 mls @ 50 mls/hr IV .Q20H [facility] Stop: 05/03/17 08:29 Last Admin: 03/07/17 04:36 Dose: 50 mls/hr Piperacillin Sod/Tazobactam (Sod 3.375 gm/ Sodium Chloride) 50 mls @ 100 mls/ hr IV Q6HR [facility] Stop: 05/03/17 11:59 Last Admin: 03/08/17 12:42 Dose: 100 mls/hr Levofloxacin (Levaquin Pb) 500 mg in 100 mls @ 100 mls/hr IV Q24H [facility] Stop: 05/08/17 04:59 Vancomycin HCl 0.75 gm/ (Dextrose) 250 mls @ 165 mls/hr IV Q24H [facility] Stop: 05/06/17 08:59 Last Admin: 03/08/17 09:36 Dose: 165 mls/hr Insulin Aspart (Novolog Insulin Sliding Scale) 0 units SUBQ ACHS [facility] PRN Reason: Protocol Stop: 05/03/17 11:29 Last Admin: 03/08/17 12:40 Dose: 4 units Insulin Detemir (Levemir Insulin) 25 units SUBQ HS [facility] PRN Reason: Protocol Stop: 05/02/17 20:59 Last Admin: 03/07/17 20:25 Dose: Not Given Insulin Detemir (Levemir Insulin) 5 units SUBQ QAM [facility] PRN Reason: Protocol Stop: 05/04/17 08:59 Last Admin: 03/08/17 09:30 Dose: 5 units Lactobacillus Rhamnosus (Culturelle 15b) 1 each PO DAILY [facility] Stop: 05/05/17 08:59 Last Admin: 03/08/17 09:20 Dose: 1 each Levetiracetam (Keppra) 500 mg PO Q8HR [facility] Stop: 05/02/17 12:59 Last Admin: 03/08/17 04:03 Dose: 500 mg Memantine (Namenda) 10 mg GT BID [facility] Stop: 05/02/17 16:59 Last Admin: 03/08/17 09:20 Dose: 10 mg Miscellaneous (Vancomycin Iv Per Pharmacy) 1 ea PRN PRN PRN Reason: PROTOCOL Stop: 05/03/17 08:30 Miscellaneous (Probiotic Screen) 1 ea PRN PRN PRN Reason: PROTOCOL Stop: 05/04/17 16:59 Morphine Sulfate (Morphine) 1 mg IVP Q4HR PRN PRN Reason: Pain (Moderate) Stop: 05/06/17 22:09 Last Admin: 03/08/17 01:14 Dose: 1 mg Pantoprazole Sodium (Protonix) 40 mg IVP DAILY [facility] Stop: 05/04/17 09:59 Last Admin: 03/08/17 09:20 Dose: 40 mg Risperidone (Risperdal) 0.5 mg PO BID [facility] Stop: 05/02/17 16:59 Last Admin: 03/08/17 09:20 Dose: 0.5 mg General: Alert, No acute distress HEENT: Atraumatic, PERRLA, EOMI Neck: Supple, JVD Cardiovascular: Regular rate, Normal S1, Normal S2 Lungs: Clear to auscultation Abdomen: Bowel sounds, Soft Extremities: Clubbing Neurological: Normal gait, Normal speech - Procedures Procedures: Procedures Procedure Code Date CHANGE GASTROSTOMY TUBE 63085 06/25/12 INJECT/INFUSE NEC 99.29 09/11/07 INSERT PICC CATH 20731 12/19/11 INSERT TUNNELED CV CATH 81770 07/08/07 OTHER ENDOSCOPY OF SM INTEST 45.13 05/05/10 PLACE NEEDLE IN VEIN 57084 07/08/07 REPLACE G/C TUBE PERC 61494 10/19/11 REPLACE GASTROSTOMY TUBE 97.02 06/25/12 TRANSABDOM ENDOSC OF SM INTES 45.11 09/11/07 VENOUS CATHETERIZATION NEC 38.93 12/19/11 VENOUS PUNCTURE NEC 38.99 07/08/07 Nutritional Asmnt/Malnutr-PDOC - Dietary Evaluation Malnutrition Findings (Please click <Entered> for more info): Nutritional Asmnt/Malnutrition Start: 03/04/17 18: 06 Text: Status: Complete Freq: Document 03/04/17 18:06 MIGUELITO (Rec: 03/04/17 18:19 [email or web address] [email or web address]) Nutritional Asmnt/Malnutrition Patient General Information Nutritional Screening High Risk Consult Diagnosis urosepsis, dehydration Pertinent Medical Hx/Surgical Hx DM, schizophrenia, CVA, chronic anemia, dysphagia, vascular dementia, s/p colostomy, parkinson, CHF, CAD , UTI Subjective Information Consult received for florence Hamilton . Pt seen resting in bed at time of visit. Verified TF runnign at 55ml/hr at this time. Current Diet Order/ Nutrition Support Diabetisource 55ml/hr x 20hr Pertinent Medications D5w, colace, Iron, novolog, levemir, levaquin, piperacillin, protinix, vancomycin Pertinent Labs 03/04 Na 159, K 3.9, Cl 123, BUN 59, CR 1.1, Glucose 296, POC 245-363, Ca 9.4 03/03 A1c 10.2 Nutritional Hx/Data Height 1.63 m Height (Calculated Centimeters) 162.6 Current Weight (lbs) 68.039 kg Weight (Calculated Kilograms) 68.0 Weight (Calculated Grams) 03392.9 [place] Body Weight 120 % [place] Body Weight 125 Body Mass Index (BMI) 25.7 Weight Status Overweight GI Symptoms GI Symptoms None Last BM 03/03 x 3 Difficult in: None Skin Integrity/Comment: decubitus ulceration to sacrum Estimated Nutritional Goals BEE in Kcals: Adj wt of IBW Calories/Kcals/Kg 23-27 based on adj wt 58kg Kcals Calculated 0436-9015 considering bedbound Protein: Adj wt of IBW Protein g/k-1.2 Protein Calculated 58-70 Fluid: ml 1334-1566ml (1ml/kcal) Nutritional Problem 1. Problem Problem altered nutrition related lab values Etiology imbalanced electrolytes/fluid, hx of DM Signs/Symptoms: Na 159, Cl 123, BUN 59, Glucose 296, POC 245-363 Malnutrition Alert Protein-Calorie Malnutrition N/A Is there a minimum of two criteria No selected? Query Text:Check all the applicable criteria. A minimum of two criteria are recommended for diagnosis of either severe or non-severe malnutrition. Intervention/Recommendation Comments 1. Continue with current TF regimen. It provides 1320kcal, 66g protein, meeting 100% of nutritional needs 2. Monitor TF rate, tolerance, wt weekly, skin integrity and labs 3. F/U as moderate risk in 3-5 days, 03/07-03/09 Expected Outcomes/Goals Expected Outcomes/Goals 1. Pt to meet at least 75% of nutritional needs via nutrition support with tolerance 2. Wt stability, skin to remain intact, labs to approach WNL.
[2017-03-09] MEDS: Dextrose 5% 1,000 ML IV SCH (01:44)
[2017-03-09] MEDS: Levofloxacin 500mg/100mL 500 MG/100 ML BAG IV SCH (04:13)
[2017-03-09] MEDS ORDERED: Levofloxacin 500mg/100mL 500 MG/100 ML BAG IV SCH (06:00)
[2017-03-09] MEDS: Morphine Sulfate 2 mg/mL 1mL Syr IVP PRN (06:01)
[2017-03-09] MEDS: INSULIN ASPART SLIDING SCALE 100 UNITS/ML UNIT SUBQ SCH ×4 (06:35→21:05)
--- NOTE | 2017-03-09 06:35 | General Progress Note ---
Subjective - Review of Systems Service Date: 03/09/17 Subjective: Patient is awake, alert, no acute distress. Patient recently underwent Arterial Doppler US and Bone Scan ... please see dictated report. S/p bilateral BKA and debridement of sacral decubitus ulcer. No acute distress. labs pending this AM. BS 290 this AM...will dc D5W and change to 1/2NS@50cc/hr Objective - Results Result Diagrams: 03/07/17 06:30 03/07/17 06:30 Recent Labs: Laboratory Last Values WBC 7.8 Th/cmm (4.8-10.8) 03/07/17 06:30 RBC 3.09 Mil/cmm (3.80-5.20) L 03/07/17 06:30 Hgb 8.5 gm/dL (12-16) L 03/07/17 06:30 Hct 27.5 % (41.0-60) L 03/07/17 06:30 MCV 88.9 fl (81-100) 03/07/17 06:30 MCH 27.3 pg (27.0-31.0) 03/07/17 06:30 MCHC Differential 30.7 pg (28.0-36.0) 03/07/17 06:30 RDW 21.4 % (11.5-20.0) H 03/07/17 06:30 Plt Count 192 Th/cmm (150-400) 03/07/17 06:30 MPV 9.8 fl 03/07/17 06:30 Neutrophils % 82.9 % (40.0-80.0) H 03/07/17 06:30 Band Neutrophils % 8 % (0-10) 03/04/17 05:35 Lymphocytes % 8.2 % (20.0-50.0) L 03/07/17 06:30 Monocytes % 7.0 % (2.0-10.0) 03/07/17 06:30 Eosinophils % 1.7 % (0.0-5.0) 03/07/17 06:30 Basophils % 0.2 % (0.0-2.0) 03/07/17 06:30 Neutrophils (Manual) 68 % (40-80) 03/04/17 05:35 Lymphocytes 17 % (20-50) L 03/04/17 05:35 Monocytes 3 % (2-10) 03/04/17 05:35 Eosinophils 3 % (0-5) 03/04/17 05:35 Nucleated RBCs 1.0 % (0-0) H 03/04/17 05:35 Anisocytosis 1+ 03/04/17 05:35 PT 11.9 SECONDS (9.5-11.5) H 03/03/17 09:00 INR 1.13 (0.5-1.4) 03/03/17 09:00 PTT (Actin FS) 36.6 SECONDS (26.0-38.0) 03/03/17 09:00 Sodium 150 mEq/L (136-145) H 03/07/17 06:30 Potassium 3.6 mEq/L (3.5-5.1) 03/07/17 06:30 Chloride 115 mEq/L (98-107) H 03/07/17 06:30 Carbon Dioxide 30.1 mEq/L (21.0-31.0) 03/07/17 06:30 Anion Gap 8.5 (7.0-16.0) 03/07/17 06:30 BUN 33 mg/dL (7-25) H 03/07/17 06:30 Creatinine 1.2 mg/dL (0.6-1.2) 03/07/17 06:30 Est GFR ( Amer) TNP 03/07/17 06:30 Est GFR (Non-Af Amer) TNP 03/07/17 06:30 BUN/Creatinine Ratio 27.5 03/07/17 06:30 Glucose 254 mg/dL (70-105) H 03/07/17 06:30 POC Glucose 291 MG/DL (70 - 105) H 03/09/17 05:51 Hemoglobin A1c % 10.2 % (4.0-6.0) H 03/03/17 09:00 Whole Bld Lactic Acid 2.20 mmol/L (0.60-1.99) H* 03/04/17 13:00 Calcium 9.0 mg/dL (8.6-10.3) 03/07/17 06:30 Iron 33 ug/dL (27-139) 03/03/17 09:00 TIBC 170 ug/dL (250-450) L 03/03/17 09:00 Iron Saturation 19 % (15-55) 03/03/17 09:00 Unsaturated IBC 137 ug/dL (118-369) 03/03/17 09:00 Ferritin 1421 ng/mL (15-150) H 03/03/17 09:00 Total Bilirubin 0.6 mg/dL (0.3-1.0) 03/07/17 06:30 Direct Bilirubin 0.06 mg/dL (0.0-0.2) 03/03/17 09:00 AST 20 U/L (13-39) 03/07/17 06:30 ALT 5 U/L (7-52) L 03/07/17 06:30 Alkaline Phosphatase 103 U/L (34-104) 03/07/17 06:30 C-Reactive Protein 33.4 mg/dL (0.0-0.9) H 03/03/17 09:00 B-Natriuretic Peptide 4190.0 pg/mL (5.0-100.0) H 03/03/17 09:00 Total Protein 7.4 gm/dL (6.0-8.3) 03/07/17 06:30 Albumin 2.4 gm/dL (3.7-5.3) L 03/07/17 06:30 Globulin 5.0 gm/dL 03/07/17 06:30 Albumin/Globulin Ratio 0.5 (1.0-1.8) L 03/07/17 06:30 Triglycerides 134 mg/dL (<150) 03/03/17 09:00 Cholesterol 49 mg/dL (<200) 03/03/17 09:00 LDL Cholesterol Direct 9 mg/dL (75-193) L 03/03/17 09:00 HDL Cholesterol 17 mg/dL (23-92) L 03/03/17 09:00 TSH 4.04 uIU/ml (0.34-5.60) 03/03/17 09:00 Urine Source CATH 03/03/17 09:59 Urine Color YELLOW 03/03/17 09:59 Urine Clarity CLOUDY (CLEAR) H 03/03/17 09:59 Urine pH 6.0 (4.6 - 8.0) 03/03/17 09:59 Ur Specific [place] 1.010 (1.005-1.030) 03/03/17 09:59 Urine Protein 30 mg/dL (NEGATIVE) H 03/03/17 09:59 Urine Glucose (UA) 100 mg/dL (NEGATIVE) H 03/03/17 09:59 Urine Ketones NEGATIVE mg/dL (NEGATIVE) 03/03/17 09:59 Urine Blood LARGE (NEGATIVE) H 03/03/17 09:59 Urine Nitrate NEGATIVE (NEGATIVE) 03/03/17 09:59 Urine Bilirubin NEGATIVE (NEGATIVE) 03/03/17 09:59 Urine Urobilinogen 0.2 E.U./dL (0.2 - 1.0) 03/03/17 09:59 Ur Leukocyte Esterase LARGE (NEGATIVE) H 03/03/17 09:59 Urine RBC 5-10 /hpf (0-5) H 03/03/17 09:59 Urine WBC 10-25 /hpf (0-5) H 03/03/17 09:59 Ur Epithelial Cells MODERATE /lpf (FEW) 03/03/17 09:59 Urine Bacteria 3+ /hpf (NONE SEEN) H 03/03/17 09:59 Urine Yeast MODERATE /hpf (NONE SEEN) H 03/03/17 09:59 Stool Occult Blood NEGATIVE (NEGATIVE) 03/04/17 09:30 Vancomycin Trough 24.6 ug/mL (10-20) H 03/06/17 08:00 Blood Type B POSITIVE 03/03/17 09:00 Antibody Screen NEGATIVE 03/03/17 09:00 Crossmatch See Detail 03/03/17 09:00 - Physical Exam Vitals and I&O: Vital Signs Temp 96.3 F 03/09/17 04:00 Pulse 96 03/09/17 04:00 Resp 18 03/09/17 04:00 BP 111/54 03/09/17 04:00 Pulse Ox 100 03/09/17 04:00 Intake & Output 03/08/17 03/08/17 03/09/17 06:59 18:59 06:59 Intake Total 890 309 8642 Output Total 900 1425 820 Balance -400 -565 830 Weight (lbs) 75.75 kg 75.75 kg 83.733 kg Intake: Intake, IV Amount 049 794 5162 Dextrose 5% 1,000 ml @ 50 1000 mls/hr IV .Q20H [facility] Rx#: [id number] Levofloxacin 500mg/100mL 100 500 mg In 100 ml @ 100 mls/hr IV Q24H [facility] Rx#: [id number] Piperacillin Sodium/ 150 100 Tazobact 3.375 gm In Sodium Chloride 0.9% 50 ml @ 100 mls/hr IV Q6HR [facility] Rx#:[id number] Vancomycin HCl 0.75 gm In 250 Dextrose 5% 250 ml @ 165 mls/hr IV Q24H [facility] Rx#: [id number] Vancomycin HCl 0.75 gm In 250 Sodium Chloride 0.9% 250 ml @ 165 mls/hr IV Q24H [facility] Rx#:[id number] Oral 0 TPN/PPN 270 400 Other 240 250 Output: Drainage 100 75 20 Left Thigh 25 25 5 Right Thigh 75 50 15 Urine 800 1350 800 Other: # Bowel Movements 0 Stool Characteristics Soft Soft Soft Formed Formed Formed Active Medications: Current Medications Carbidopa/Levodopa (Sinemet 25mg-100 Mg) 1 tab GT Q8HR [facility] Stop: 05/02/17 12:59 Last Admin: 03/09/17 04:09 Dose: 1 tab [place] Oil/[place] Balsam/Trypsin (Venelex) 1 appl TP DAILY [facility] Stop: 05/04/17 08:59 Last Admin: 03/08/17 09:21 Dose: 1 appl Docusate Sodium (Colace) 100 mg PO BID [facility] Stop: 05/02/17 16:59 Last Admin: 03/08/17 16:23 Dose: 100 mg Donepezil HCl (Aricept) 10 mg GT HS [facility] Stop: 05/02/17 20:59 Last Admin: 03/08/17 22:03 Dose: 10 mg Ferrous Sulfate (Iron) 325 mg PO BID [facility] Stop: 05/03/17 16:59 Last Admin: 03/08/17 16:23 Dose: 325 mg Heparin Sodium (Porcine) (Heparin) 5,000 units SUBQ Q12HR [facility] Stop: 05/02/17 20:59 Last Admin: 03/08/17 21:58 Dose: 5,000 units Dextrose (D5w) 1,000 mls @ 50 mls/hr IV .Q20H [facility] Stop: 05/03/17 08:29 Last Admin: 03/09/17 01:44 Dose: 50 mls/hr Levofloxacin (Levaquin Pb) 500 mg in 100 mls @ 100 mls/hr IV Q24H [facility] Stop: 05/08/17 04:59 Last Admin: 03/09/17 04:13 Dose: 100 mls/hr Vancomycin HCl 0.75 gm/ (Dextrose) 250 mls @ 165 mls/hr IV Q24H [facility] Stop: 05/06/17 08:59 Last Infusion: 03/08/17 11:07 Dose: Infused Insulin Aspart (Novolog Insulin Sliding Scale) 0 units SUBQ ACHS [facility] PRN Reason: Protocol Stop: 05/03/17 11:29 Last Admin: 03/08/17 22:00 Dose: 2 units Insulin Detemir (Levemir Insulin) 25 units SUBQ HS [facility] PRN Reason: Protocol Stop: 05/02/17 20:59 Last Admin: 03/08/17 22:10 Dose: 25 units Insulin Detemir (Levemir Insulin) 5 units SUBQ QAM [facility] PRN Reason: Protocol Stop: 05/04/17 08:59 Last Admin: 03/08/17 09:30 Dose: 5 units Lactobacillus Rhamnosus (Culturelle 15b) 1 each PO DAILY [facility] Stop: 05/05/17 08:59 Last Admin: 03/08/17 09:20 Dose: 1 each Levetiracetam (Keppra) 500 mg PO Q8HR [facility] Stop: 05/02/17 12:59 Last Admin: 03/09/17 04:09 Dose: 500 mg Memantine (Namenda) 10 mg GT BID [facility] Stop: 05/02/17 16:59 Last Admin: 03/08/17 16:23 Dose: 10 mg Miscellaneous (Vancomycin Iv Per Pharmacy) 1 ea PRN PRN PRN Reason: PROTOCOL Stop: 05/03/17 08:30 Miscellaneous (Probiotic Screen) 1 ea PRN PRN PRN Reason: PROTOCOL Stop: 05/04/17 16:59 Morphine Sulfate (Morphine) 1 mg IVP Q4HR PRN PRN Reason: Pain (Moderate) Stop: 05/06/17 22:09 Last Admin: 03/09/17 06:01 Dose: 1 mg Pantoprazole Sodium (Protonix) 40 mg IVP DAILY [facility] Stop: 05/04/17 09:59 Last Admin: 03/08/17 09:20 Dose: 40 mg Risperidone (Risperdal) 0.5 mg PO BID [facility] Stop: 05/02/17 16:59 Last Admin: 03/08/17 16:24 Dose: 0.5 mg General: Alert, No acute distress HEENT: Atraumatic, PERRLA, EOMI Neck: Supple, JVD Cardiovascular: Regular rate, Normal S1, Normal S2 Lungs: Clear to auscultation Abdomen: Bowel sounds, Soft Extremities: Clubbing Neurological: Normal gait, Normal speech - Procedures Procedures: Procedures Procedure Code Date CHANGE GASTROSTOMY TUBE 96505 06/25/12 INJECT/INFUSE NEC 99.29 09/11/07 INSERT PICC CATH 22293 12/19/11 INSERT TUNNELED CV CATH 95539 07/08/07 OTHER ENDOSCOPY OF SM INTEST 45.13 05/05/10 PLACE NEEDLE IN VEIN 24421 07/08/07 REPLACE G/C TUBE PERC 17010 10/19/11 REPLACE GASTROSTOMY TUBE 97.02 06/25/12 TRANSABDOM ENDOSC OF SM INTES 45.11 09/11/07 VENOUS CATHETERIZATION NEC 38.93 12/19/11 VENOUS PUNCTURE NEC 38.99 07/08/07 Assessment/Plan - Assessment Assessment: sepsis vs urosepsis hypernatremia elevated BNP acute on chronic anemia r/o GIB diabetes mellitus type 2 schizophrenia CVA w/ right sided hemiplegia h/o UTI s/p colostomy parkinson's disease hypothyroidism vascular dementia dysphagia CHF CAD peripheral vascular disease 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 UTI +Aerococcus - Plan Plan: General Surgery consult -- Dr. Bates. Will need surgical procedure for possible BKA. ID consult -- Dr. Regan Garcia Cardiology consult -- Dr. Garcia GI Consult -- Dr. Boone repeat CBC, CMP continue IV anitbiotics .. IV Zosyn, IV Vancomycin Blood culture pending, Urine Cultures pending LTAC evaluation and treatment. Nutritional Asmnt/Malnutr-PDOC - Dietary Evaluation Malnutrition Findings (Please click <Entered> for more info): Nutritional Asmnt/Malnutrition Start: 03/04/17 18: 06 Text: Status: Complete Freq: Document 03/04/17 18:06 REJI (Rec: 03/04/17 18:19 REJI [email or web address]) Nutritional Asmnt/Malnutrition Patient General Information Nutritional Screening High Risk Consult Diagnosis urosepsis, dehydration Pertinent Medical Hx/Surgical Hx DM, schizophrenia, CVA, chronic anemia, dysphagia, vascular dementia, s/p colostomy, parkinson, CHF, CAD , UTI Subjective Information Consult received for florence 10 . Pt seen resting in bed at time of visit. Verified TF runnign at 55ml/hr at this time. Current Diet Order/ Nutrition Support Diabetisource 55ml/hr x 20hr Pertinent Medications D5w, colace, Iron, novolog, levemir, levaquin, piperacillin, protinix, vancomycin Pertinent Labs 03/04 Na 159, K 3.9, Cl 123, BUN 59, CR 1.1, Glucose 296, POC 245-363, Ca 9.4 03/03 A1c 10.2 Nutritional Hx/Data Height 1.63 m Height (Calculated Centimeters) 162.6 Current Weight (lbs) 68.039 kg Weight (Calculated Kilograms) 68.0 Weight (Calculated Grams) 29060.9 Kiln Body Weight 120 % Kiln Body Weight 125 Body Mass Index (BMI) 25.7 Weight Status Overweight GI Symptoms GI Symptoms None Last BM 03/03 x 3 Difficult in: None Skin Integrity/Comment: decubitus ulceration to sacrum Estimated Nutritional Goals BEE in Kcals: Adj wt of IBW Calories/Kcals/Kg 23-27 based on adj wt 58kg Kcals Calculated 1250-6892 considering bedbound Protein: Adj wt of IBW Protein g/k-1.2 Protein Calculated 58-70 Fluid: ml 1334-1566ml (1ml/kcal) Nutritional Problem 1. Problem Problem altered nutrition related lab values Etiology imbalanced electrolytes/fluid, hx of DM Signs/Symptoms: Na 159, Cl 123, BUN 59, Glucose 296, POC 245-363 Malnutrition Alert Protein-Calorie Malnutrition N/A Is there a minimum of two criteria No selected? Query Text:Check all the applicable criteria. A minimum of two criteria are recommended for diagnosis of either severe or non-severe malnutrition. Intervention/Recommendation Comments 1. Continue with current TF regimen. It provides 1320kcal, 66g protein, meeting 100% of nutritional needs 2. Monitor TF rate, tolerance, wt weekly, skin integrity and labs 3. F/U as moderate risk in 3-5 days, 03/07-03/09 Expected Outcomes/Goals Expected Outcomes/Goals 1. Pt to meet at least 75% of nutritional needs via nutrition support with tolerance 2. Wt stability, skin to remain intact, labs to approach WNL.
[2017-03-09] MEDS: Sodium Chloride 0.45% 1,000 ML IV SCH (06:50)
[2017-03-09 08:04] LABS: ALB/GLOB RATIO 0.5 (1.0-1.8); ALBUMIN 2.2 gm/dL (3.7-5.3); ALKALINE PHOSPHATASE 87 U/L (34-104); ANION GAP 10.3 (7.0-16.0); BILIRUBIN,TOTAL 0.3 mg/dL (0.3-1.0); BUN - UREA NITROGEN 28 mg/dL (7-25); CALCIUM SERUM 8.5 mg/dL (8.6-10.3); CARBON DIOXIDE 29.2 mEq/L (21.0-31.0); CHLORIDE 115 mEq/L (98-107); CREATININE - SERUM 1.4 mg/dL (0.6-1.2); GLUCOSE 315 mg/dL (70-105); POTASSIUM SERUM 3.5 mEq/L (3.5-5.1); SGOT 20 U/L (13-39); SGPT/ALT 3 U/L (7-52); SODIUM SERUM 151 mEq/L (136-145); TOTAL PROTEIN,SERUM 6.6 gm/dL (6.0-8.3)
[2017-03-09] MEDS: Ferrous Sulfate 325 MG TAB PO SCH ×2 (09:31→16:41)
[2017-03-09] MEDS: Multivitamin w/ Minerals Tab GT SCH (09:31)
[2017-03-09] MEDS: Lactobacillus Rhamnosus GG 15 Billion CFU CAP.SPRINK PO SCH (09:31)
[2017-03-09] MEDS: Insulin Detemir 100 units/mL 10mL Vial SUBQ SCH ×2 (09:32→21:08)
[2017-03-09] MEDS: DEXTROSE 5% IV SCH (09:51)
[2017-03-09] MEDS: VANCOMYCIN HCL IV SCH (09:51)
[2017-03-09 15:00] LABS: MEAN CORPUSCULAR HEMOGLOBIN 28.4 pg (27.0-31.0); MEAN CORPUSCULAR HGB CONC 30.2 pg (28.0-36.0); MEAN PLATELET VOLUME 10.8 fl; PLATELET COUNT 191 Th/cmm (150-400); RED BLOOD COUNT 2.62 Mil/cmm (3.80-5.20); RED CELL DISTRIBUTION WIDTH 21.9 % (11.5-20.0)
[2017-03-09 15:04] LABS: WHITE BLOOD COUNT 9.4 Th/cmm (4.8-10.8)
[2017-03-09 15:05] LABS: HEMATOCRIT 24.6 % (41.0-60); HEMOGLOBIN 7.4 gm/dL (12-16)
[2017-03-09 15:22] LABS: ANISOCYTOSIS 1+; BAND NEUTROPHILE 7 % (0-10); EOSINOPHIL 1 % (0-5); LYMPHOCYTE 10 % (20-50); MONOCYTE 15 % (2-10); NEUTROPHILS 67 % (40-80); PLATELET ESTIMATE ADEQUATE (NORMAL); PLATELET MORPHOLOGY NORMAL (NORMAL)
[2017-03-09] MEDS: Venelex 60gm Tube TP SCH (18:00)
[2017-03-10] MEDS: Levofloxacin 500mg/100mL 500 MG/100 ML BAG IV SCH (04:45)
[2017-03-10] MEDS: Morphine Sulfate 2 mg/mL 1mL Syr IVP PRN (05:06)
[2017-03-10] MEDS: INSULIN ASPART SLIDING SCALE 100 UNITS/ML UNIT SUBQ SCH ×4 (06:32→21:07)
[2017-03-10] MEDS: VANCOMYCIN HCL IV SCH (09:30)
[2017-03-10] MEDS: DEXTROSE 5% IV SCH (09:30)
[2017-03-10] MEDS: Lactobacillus Rhamnosus GG 15 Billion CFU CAP.SPRINK PO SCH (09:31)
[2017-03-10] MEDS: Multivitamin w/ Minerals Tab GT SCH (09:31)
[2017-03-10] MEDS: Ferrous Sulfate 325 MG TAB PO SCH ×2 (09:31→18:12)
[2017-03-10] MEDS: Insulin Detemir 100 units/mL 10mL Vial SUBQ SCH ×2 (09:32→21:09)
[2017-03-10] MEDS: Venelex 60gm Tube TP SCH (09:32)
--- NOTE | 2017-03-10 12:23 | Infectious Disease Prog Note ---
Infectious Disease Subjective - Review of Systems Service Date: 03/10/17 Subjective: No new change, no fever. Infectious Disease Objective - Results Result Diagrams: 03/09/17 13:50 03/09/17 07:44 Recent Labs: Laboratory Last Values WBC 9.4 Th/cmm (4.8-10.8) D 03/09/17 13:50 RBC 2.62 Mil/cmm (3.80-5.20) L 03/09/17 13:50 Hgb 7.4 gm/dL (12-16) L* 03/09/17 13:50 Hct 24.6 % (41.0-60) L D 03/09/17 13:50 MCV 94.0 fl (81-100) 03/09/17 13:50 MCH 28.4 pg (27.0-31.0) 03/09/17 13:50 MCHC Differential 30.2 pg (28.0-36.0) 03/09/17 13:50 RDW 21.9 % (11.5-20.0) H 03/09/17 13:50 Plt Count 191 Th/cmm (150-400) 03/09/17 13:50 MPV 10.8 fl 03/09/17 13:50 Neutrophils % 82.9 % (40.0-80.0) H 03/07/17 06:30 Band Neutrophils % 7 % (0-10) 03/09/17 13:50 Lymphocytes % 8.2 % (20.0-50.0) L 03/07/17 06:30 Monocytes % 7.0 % (2.0-10.0) 03/07/17 06:30 Eosinophils % 1.7 % (0.0-5.0) 03/07/17 06:30 Basophils % 0.2 % (0.0-2.0) 03/07/17 06:30 Neutrophils (Manual) 67 % (40-80) 03/09/17 13:50 Lymphocytes 10 % (20-50) L 03/09/17 13:50 Monocytes 15 % (2-10) H 03/09/17 13:50 Eosinophils 1 % (0-5) 03/09/17 13:50 Nucleated RBCs 1.0 % (0-0) H 03/04/17 05:35 Platelet Estimate ADEQUATE (NORMAL) 03/09/17 13:50 Platelet Morphology NORMAL (NORMAL) 03/09/17 13:50 Anisocytosis 1+ 03/09/17 13:50 RBC Morph Micro Appear ABNORMAL (NORMAL) 03/09/17 13:50 PT 11.9 SECONDS (9.5-11.5) H 03/03/17 09:00 INR 1.13 (0.5-1.4) 03/03/17 09:00 PTT (Actin FS) 36.6 SECONDS (26.0-38.0) 03/03/17 09:00 Sodium 151 mEq/L (136-145) H 03/09/17 07:44 Potassium 3.5 mEq/L (3.5-5.1) 03/09/17 07:44 Chloride 115 mEq/L (98-107) H 03/09/17 07:44 Carbon Dioxide 29.2 mEq/L (21.0-31.0) 03/09/17 07:44 Anion Gap 10.3 (7.0-16.0) 03/09/17 07:44 BUN 28 mg/dL (7-25) H 03/09/17 07:44 Creatinine 1.4 mg/dL (0.6-1.2) H 03/09/17 07:44 Est GFR ( Amer) TNP 03/09/17 07:44 Est GFR (Non-Af Amer) TNP 03/09/17 07:44 BUN/Creatinine Ratio 20.0 03/09/17 07:44 Glucose 315 mg/dL (70-105) H 03/09/17 07:44 POC Glucose 196 MG/DL (70 - 105) H 03/10/17 12:02 Hemoglobin A1c % 10.2 % (4.0-6.0) H 03/03/17 09:00 Whole Bld Lactic Acid 2.20 mmol/L (0.60-1.99) H* 03/04/17 13:00 Calcium 8.5 mg/dL (8.6-10.3) L 03/09/17 07:44 Iron 33 ug/dL (27-139) 03/03/17 09:00 TIBC 170 ug/dL (250-450) L 03/03/17 09:00 Iron Saturation 19 % (15-55) 03/03/17 09:00 Unsaturated IBC 137 ug/dL (118-369) 03/03/17 09:00 Ferritin 1421 ng/mL (15-150) H 03/03/17 09:00 Total Bilirubin 0.3 mg/dL (0.3-1.0) 03/09/17 07:44 Direct Bilirubin 0.06 mg/dL (0.0-0.2) 03/03/17 09:00 AST 20 U/L (13-39) 03/09/17 07:44 ALT 3 U/L (7-52) L 03/09/17 07:44 Alkaline Phosphatase 87 U/L (34-104) 03/09/17 07:44 C-Reactive Protein 33.4 mg/dL (0.0-0.9) H 03/03/17 09:00 B-Natriuretic Peptide 4190.0 pg/mL (5.0-100.0) H 03/03/17 09:00 Total Protein 6.6 gm/dL (6.0-8.3) 03/09/17 07:44 Albumin 2.2 gm/dL (3.7-5.3) L 03/09/17 07:44 Globulin 4.4 gm/dL 03/09/17 07:44 Albumin/Globulin Ratio 0.5 (1.0-1.8) L 03/09/17 07:44 Triglycerides 134 mg/dL (<150) 03/03/17 09:00 Cholesterol 49 mg/dL (<200) 03/03/17 09:00 LDL Cholesterol Direct 9 mg/dL (75-193) L 03/03/17 09:00 HDL Cholesterol 17 mg/dL (23-92) L 03/03/17 09:00 TSH 4.04 uIU/ml (0.34-5.60) 03/03/17 09:00 Urine Source CATH 03/03/17 09:59 Urine Color YELLOW 03/03/17 09:59 Urine Clarity CLOUDY (CLEAR) H 03/03/17 09:59 Urine pH 6.0 (4.6 - 8.0) 03/03/17 09:59 Ur Specific [place] 1.010 (1.005-1.030) 03/03/17 09:59 Urine Protein 30 mg/dL (NEGATIVE) H 03/03/17 09:59 Urine Glucose (UA) 100 mg/dL (NEGATIVE) H 03/03/17 09:59 Urine Ketones NEGATIVE mg/dL (NEGATIVE) 03/03/17 09:59 Urine Blood LARGE (NEGATIVE) H 03/03/17 09:59 Urine Nitrate NEGATIVE (NEGATIVE) 03/03/17 09:59 Urine Bilirubin NEGATIVE (NEGATIVE) 03/03/17 09:59 Urine Urobilinogen 0.2 E.U./dL (0.2 - 1.0) 03/03/17 09:59 Ur Leukocyte Esterase LARGE (NEGATIVE) H 03/03/17 09:59 Urine RBC 5-10 /hpf (0-5) H 03/03/17 09:59 Urine WBC 10-25 /hpf (0-5) H 03/03/17 09:59 Ur Epithelial Cells MODERATE /lpf (FEW) 03/03/17 09:59 Urine Bacteria 3+ /hpf (NONE SEEN) H 03/03/17 09:59 Urine Yeast MODERATE /hpf (NONE SEEN) H 03/03/17 09:59 Stool Occult Blood NEGATIVE (NEGATIVE) 03/04/17 09:30 Vancomycin Trough 24.6 ug/mL (10-20) H 03/06/17 08:00 Blood Type B POSITIVE 03/09/17 14:30 Antibody Screen NEGATIVE 03/09/17 14:30 Crossmatch See Detail 03/09/17 14:30 - Physical Exam Vitals and I&O: Vital Signs Temp 97.4 F 03/10/17 08:01 Pulse 65 03/10/17 09:35 Resp 17 03/10/17 10:00 BP 107/51 03/10/17 08:01 Pulse Ox 97 03/10/17 09:35 Intake & Output 03/09/17 03/10/17 03/10/17 18:59 06:59 18:59 Intake Total 1050 1317.5 Output Total 1714 1206 Balance -664 111.5 Weight (lbs) 83.461 kg 73.936 kg Intake: Intake, IV Amount 250 617.5 Sodium Chloride 0.45% 1, 617.5 000 ml @ 50 mls/hr IV . Q20H [facility] Rx#:[id number] Vancomycin HCl 0.75 gm In 250 Dextrose 5% 250 ml @ 165 mls/hr IV Q24H [facility] Rx#: [id number] Tube Feeding 440 450 Blood Product 250 Other 360 Output: Drainage 9 6 Left Thigh 9 2 Right Thigh 4 Urine 1700 1200 Other 5 Other: Stool Characteristics Soft Green Active Medications: Current Medications Carbidopa/Levodopa (Sinemet 25mg-100 Mg) 1 tab GT Q8HR [facility] Stop: 05/02/17 12:59 Last Admin: 03/10/17 04:43 Dose: 1 tab [place] Oil/[place] Balsam/Trypsin (Venelex) 1 appl TP DAILY [facility] Stop: 05/04/17 08:59 Last Admin: 03/10/17 09:32 Dose: 1 appl Docusate Sodium (Colace) 100 mg PO BID [facility] Stop: 05/02/17 16:59 Last Admin: 03/10/17 09:30 Dose: 100 mg Donepezil HCl (Aricept) 10 mg GT HS [facility] Stop: 05/02/17 20:59 Last Admin: 03/09/17 20:57 Dose: 10 mg Ferrous Sulfate (Iron) 325 mg PO BID [facility] Stop: 05/03/17 16:59 Last Admin: 03/10/17 09:31 Dose: 325 mg Heparin Sodium (Porcine) (Heparin) 5,000 units SUBQ Q12HR [facility] Stop: 05/02/17 20:59 Last Admin: 03/10/17 09:31 Dose: 5,000 units Levofloxacin (Levaquin Pb) 500 mg in 100 mls @ 100 mls/hr IV Q24H [facility] Stop: 05/08/17 04:59 Last Admin: 03/10/17 04:45 Dose: 100 mls/hr Vancomycin HCl 0.75 gm/ (Dextrose) 250 mls @ 165 mls/hr IV Q24H [facility] Stop: 05/06/17 08:59 Last Admin: 03/10/17 09:30 Dose: 165 mls/hr Sodium Chloride (Nacl 0.45%) 1,000 mls @ 50 mls/hr IV .Q20H [facility] Stop: 05/08/17 06:44 Last Infusion: 03/09/17 19:11 Dose: 50 mls/hr Insulin Aspart (Novolog Insulin Sliding Scale) 0 units SUBQ ACHS [facility] PRN Reason: Protocol Stop: 05/03/17 11:29 Last Admin: 03/10/17 06:32 Dose: Not Given Insulin Detemir (Levemir Insulin) 25 units SUBQ HS [facility] PRN Reason: Protocol Stop: 05/02/17 20:59 Last Admin: 03/09/17 21:08 Dose: 25 units Insulin Detemir (Levemir Insulin) 5 units SUBQ QAM [facility] PRN Reason: Protocol Stop: 05/04/17 08:59 Last Admin: 03/10/17 09:32 Dose: 5 units Lactobacillus Rhamnosus (Culturelle 15b) 1 each PO DAILY [facility] Stop: 05/05/17 08:59 Last Admin: 03/10/17 09:31 Dose: 1 each Levetiracetam (Keppra) 500 mg PO Q8HR [facility] Stop: 05/02/17 12:59 Last Admin: 03/10/17 04:43 Dose: 500 mg Memantine (Namenda) 10 mg GT BID [facility] Stop: 05/02/17 16:59 Last Admin: 03/10/17 09:31 Dose: 10 mg Miscellaneous (Vancomycin Iv Per Pharmacy) 1 ea PRN PRN PRN Reason: PROTOCOL Stop: 05/03/17 08:30 Miscellaneous (Probiotic Screen) 1 ea PRN PRN PRN Reason: PROTOCOL Stop: 05/04/17 16:59 Morphine Sulfate (Morphine) 1 mg IVP Q4HR PRN PRN Reason: Pain (Moderate) Stop: 05/06/17 22:09 Last Admin: 03/10/17 05:06 Dose: 1 mg Pantoprazole Sodium (Protonix) 40 mg IVP DAILY [facility] Stop: 05/04/17 09:59 Last Admin: 03/10/17 09:31 Dose: 40 mg Risperidone (Risperdal) 0.5 mg PO BID [facility] Stop: 05/02/17 16:59 Last Admin: 03/10/17 09:31 Dose: 0.5 mg General: no acute distress, well developed, well nourished HEENT: atraumatic, normocephalic, PERRLA, EOMI Neck: supple, no thyromegaly Cardiovascular: S1S2, regular Lungs: clear to auscultation bilaterally, clear to percussion Abdomen: soft, no tender, no distended Extremities: other (b/l bka), no cyanosis, no clubbing, no edema Neurological: awake, alert, oriented Skin: other (sacral wound) - Procedures Procedures: Procedures Procedure Code Date CHANGE GASTROSTOMY TUBE 72887 06/25/12 INJECT/INFUSE NEC 99.29 09/11/07 INSERT PICC CATH 12182 12/19/11 INSERT TUNNELED CV CATH 53687 07/08/07 OTHER ENDOSCOPY OF SM INTEST 45.13 05/05/10 PLACE NEEDLE IN VEIN 12721 07/08/07 REPLACE G/C TUBE PERC 99718 10/19/11 REPLACE GASTROSTOMY TUBE 97.02 06/25/12 TRANSABDOM ENDOSC OF SM INTES 45.11 09/11/07 VENOUS CATHETERIZATION NEC 38.93 12/19/11 VENOUS PUNCTURE NEC 38.99 07/08/07 Infectious Disease Assmt/Plan - Assessment Assessment: 1. UTI. 2. Multiple wounds, sacral decubitus. r/o oteomyelitis. 3. CVA. 4. DM2. 5. HTN. 6. Colostomy. - Plan Plan: will continue vanco IV and Zosyn. wound care. DC plan to [facility], [place]. Nutritional Asmnt/Malnutr-PDOC - Dietary Evaluation Malnutrition Findings (Please click <Entered> for more info): Nutritional Asmnt/Malnutrition Start: 03/04/17 18: 06 Text: Status: Complete Freq: Document 03/04/17 18:06 [email or web address] (Rec: 03/04/17 18:19 BERE [email or web address]) Nutritional Asmnt/Malnutrition Patient General Information Nutritional Screening High Risk Consult Diagnosis urosepsis, dehydration Pertinent Medical Hx/Surgical Hx DM, schizophrenia, CVA, chronic anemia, dysphagia, vascular dementia, s/p colostomy, parkinson, CHF, CAD , UTI Subjective Information Consult received for florence Hamilton . Pt seen resting in bed at time of visit. Verified TF runnign at 55ml/hr at this time. Current Diet Order/ Nutrition Support Diabetisource 55ml/hr x 20hr Pertinent Medications D5w, colace, Iron, novolog, levemir, levaquin, piperacillin, protinix, vancomycin Pertinent Labs 03/04 Na 159, K 3.9, Cl 123, BUN 59, CR 1.1, Glucose 296, POC 245-363, Ca 9.4 03/03 A1c 10.2 Nutritional Hx/Data Height 1.63 m Height (Calculated Centimeters) 162.6 Current Weight (lbs) 68.039 kg Weight (Calculated Kilograms) 68.0 Weight (Calculated Grams) 12019.9 [place] Body Weight 120 % [place] Body Weight 125 Body Mass Index (BMI) 25.7 Weight Status Overweight GI Symptoms GI Symptoms None Last BM 03/03 x 3 Difficult in: None Skin Integrity/Comment: decubitus ulceration to sacrum Estimated Nutritional Goals BEE in Kcals: Adj wt of IBW Calories/Kcals/Kg 23-27 based on adj wt 58kg Kcals Calculated 9793-7449 considering bedbound Protein: Adj wt of IBW Protein g/k-1.2 Protein Calculated 58-70 Fluid: ml 1334-1566ml (1ml/kcal) Nutritional Problem 1. Problem Problem altered nutrition related lab values Etiology imbalanced electrolytes/fluid, hx of DM Signs/Symptoms: Na 159, Cl 123, BUN 59, Glucose 296, POC 245-363 Malnutrition Alert Protein-Calorie Malnutrition N/A Is there a minimum of two criteria No selected? Query Text:Check all the applicable criteria. A minimum of two criteria are recommended for diagnosis of either severe or non-severe malnutrition. Intervention/Recommendation Comments 1. Continue with current TF regimen. It provides 1320kcal, 66g protein, meeting 100% of nutritional needs 2. Monitor TF rate, tolerance, wt weekly, skin integrity and labs 3. F/U as moderate risk in 3-5 days, 03/07-03/09 Expected Outcomes/Goals Expected Outcomes/Goals 1. Pt to meet at least 75% of nutritional needs via nutrition support with tolerance 2. Wt stability, skin to remain intact, labs to approach WNL.
--- NOTE | 2017-03-10 13:46 | General Progress Note ---
Subjective - Review of Systems Service Date: 03/10/17 Subjective: Patient is awake, alert, no acute distress. Patient recently underwent Arterial Doppler US and Bone Scan ... please see dictated report. S/p bilateral BKA and debridement of sacral decubitus ulcer. No acute distress. labs pending this AM. BS 290 this AM...will dc D5W and change to 1/2NS@50cc/hr Hb 7.4 s/p blood transfusion of 1 unit PRBC's. Will repeat h/h tomorrow. Objective - Results Result Diagrams: 03/09/17 13:50 03/09/17 07:44 Recent Labs: Laboratory Last Values WBC 9.4 Th/cmm (4.8-10.8) D 03/09/17 13:50 RBC 2.62 Mil/cmm (3.80-5.20) L 03/09/17 13:50 Hgb 7.4 gm/dL (12-16) L* 03/09/17 13:50 Hct 24.6 % (41.0-60) L D 03/09/17 13:50 MCV 94.0 fl (81-100) 03/09/17 13:50 MCH 28.4 pg (27.0-31.0) 03/09/17 13:50 MCHC Differential 30.2 pg (28.0-36.0) 03/09/17 13:50 RDW 21.9 % (11.5-20.0) H 03/09/17 13:50 Plt Count 191 Th/cmm (150-400) 03/09/17 13:50 MPV 10.8 fl 03/09/17 13:50 Neutrophils % 82.9 % (40.0-80.0) H 03/07/17 06:30 Band Neutrophils % 7 % (0-10) 03/09/17 13:50 Lymphocytes % 8.2 % (20.0-50.0) L 03/07/17 06:30 Monocytes % 7.0 % (2.0-10.0) 03/07/17 06:30 Eosinophils % 1.7 % (0.0-5.0) 03/07/17 06:30 Basophils % 0.2 % (0.0-2.0) 03/07/17 06:30 Neutrophils (Manual) 67 % (40-80) 03/09/17 13:50 Lymphocytes 10 % (20-50) L 03/09/17 13:50 Monocytes 15 % (2-10) H 03/09/17 13:50 Eosinophils 1 % (0-5) 03/09/17 13:50 Nucleated RBCs 1.0 % (0-0) H 03/04/17 05:35 Platelet Estimate ADEQUATE (NORMAL) 03/09/17 13:50 Platelet Morphology NORMAL (NORMAL) 03/09/17 13:50 Anisocytosis 1+ 03/09/17 13:50 RBC Morph Micro Appear ABNORMAL (NORMAL) 03/09/17 13:50 PT 11.9 SECONDS (9.5-11.5) H 03/03/17 09:00 INR 1.13 (0.5-1.4) 03/03/17 09:00 PTT (Actin FS) 36.6 SECONDS (26.0-38.0) 03/03/17 09:00 Sodium 151 mEq/L (136-145) H 03/09/17 07:44 Potassium 3.5 mEq/L (3.5-5.1) 03/09/17 07:44 Chloride 115 mEq/L (98-107) H 03/09/17 07:44 Carbon Dioxide 29.2 mEq/L (21.0-31.0) 03/09/17 07:44 Anion Gap 10.3 (7.0-16.0) 03/09/17 07:44 BUN 28 mg/dL (7-25) H 03/09/17 07:44 Creatinine 1.4 mg/dL (0.6-1.2) H 03/09/17 07:44 Est GFR ( Amer) TNP 03/09/17 07:44 Est GFR (Non-Af Amer) TNP 03/09/17 07:44 BUN/Creatinine Ratio 20.0 03/09/17 07:44 Glucose 315 mg/dL (70-105) H 03/09/17 07:44 POC Glucose 196 MG/DL (70 - 105) H 03/10/17 12:02 Hemoglobin A1c % 10.2 % (4.0-6.0) H 03/03/17 09:00 Whole Bld Lactic Acid 2.20 mmol/L (0.60-1.99) H* 03/04/17 13:00 Calcium 8.5 mg/dL (8.6-10.3) L 03/09/17 07:44 Iron 33 ug/dL (27-139) 03/03/17 09:00 TIBC 170 ug/dL (250-450) L 03/03/17 09:00 Iron Saturation 19 % (15-55) 03/03/17 09:00 Unsaturated IBC 137 ug/dL (118-369) 03/03/17 09:00 Ferritin 1421 ng/mL (15-150) H 03/03/17 09:00 Total Bilirubin 0.3 mg/dL (0.3-1.0) 03/09/17 07:44 Direct Bilirubin 0.06 mg/dL (0.0-0.2) 03/03/17 09:00 AST 20 U/L (13-39) 03/09/17 07:44 ALT 3 U/L (7-52) L 03/09/17 07:44 Alkaline Phosphatase 87 U/L (34-104) 03/09/17 07:44 C-Reactive Protein 33.4 mg/dL (0.0-0.9) H 03/03/17 09:00 B-Natriuretic Peptide 4190.0 pg/mL (5.0-100.0) H 03/03/17 09:00 Total Protein 6.6 gm/dL (6.0-8.3) 03/09/17 07:44 Albumin 2.2 gm/dL (3.7-5.3) L 03/09/17 07:44 Globulin 4.4 gm/dL 03/09/17 07:44 Albumin/Globulin Ratio 0.5 (1.0-1.8) L 03/09/17 07:44 Triglycerides 134 mg/dL (<150) 03/03/17 09:00 Cholesterol 49 mg/dL (<200) 03/03/17 09:00 LDL Cholesterol Direct 9 mg/dL (75-193) L 03/03/17 09:00 HDL Cholesterol 17 mg/dL (23-92) L 03/03/17 09:00 TSH 4.04 uIU/ml (0.34-5.60) 03/03/17 09:00 Urine Source CATH 03/03/17 09:59 Urine Color YELLOW 03/03/17 09:59 Urine Clarity CLOUDY (CLEAR) H 03/03/17 09:59 Urine pH 6.0 (4.6 - 8.0) 03/03/17 09:59 Ur Specific [place] 1.010 (1.005-1.030) 03/03/17 09:59 Urine Protein 30 mg/dL (NEGATIVE) H 03/03/17 09:59 Urine Glucose (UA) 100 mg/dL (NEGATIVE) H 03/03/17 09:59 Urine Ketones NEGATIVE mg/dL (NEGATIVE) 03/03/17 09:59 Urine Blood LARGE (NEGATIVE) H 03/03/17 09:59 Urine Nitrate NEGATIVE (NEGATIVE) 03/03/17 09:59 Urine Bilirubin NEGATIVE (NEGATIVE) 03/03/17 09:59 Urine Urobilinogen 0.2 E.U./dL (0.2 - 1.0) 03/03/17 09:59 Ur Leukocyte Esterase LARGE (NEGATIVE) H 03/03/17 09:59 Urine RBC 5-10 /hpf (0-5) H 03/03/17 09:59 Urine WBC 10-25 /hpf (0-5) H 03/03/17 09:59 Ur Epithelial Cells MODERATE /lpf (FEW) 03/03/17 09:59 Urine Bacteria 3+ /hpf (NONE SEEN) H 03/03/17 09:59 Urine Yeast MODERATE /hpf (NONE SEEN) H 03/03/17 09:59 Stool Occult Blood NEGATIVE (NEGATIVE) 03/04/17 09:30 Vancomycin Trough 24.6 ug/mL (10-20) H 03/06/17 08:00 Blood Type B POSITIVE 03/09/17 14:30 Antibody Screen NEGATIVE 03/09/17 14:30 Crossmatch See Detail 03/09/17 14:30 - Physical Exam Vitals and I&O: Vital Signs Temp 97.4 F 03/10/17 08:01 Pulse 65 03/10/17 09:35 Resp 17 03/10/17 10:00 BP 107/51 03/10/17 08:01 Pulse Ox 97 03/10/17 09:35 Intake & Output 03/09/17 03/10/17 03/10/17 18:59 06:59 18:59 Intake Total 1050 1317.5 Output Total 1714 1206 Balance -664 111.5 Weight (lbs) 83.461 kg 73.936 kg Intake: Intake, IV Amount 250 617.5 Sodium Chloride 0.45% 1, 617.5 000 ml @ 50 mls/hr IV . Q20H [facility] Rx#:[id number] Vancomycin HCl 0.75 gm In 250 Dextrose 5% 250 ml @ 165 mls/hr IV Q24H [facility] Rx#: [id number] Tube Feeding 440 450 Blood Product 250 Other 360 Output: Drainage 9 6 Left Thigh 9 2 Right Thigh 4 Urine 1700 1200 Other 5 Other: Stool Characteristics Soft Green Active Medications: Current Medications Carbidopa/Levodopa (Sinemet 25mg-100 Mg) 1 tab GT Q8HR JACKIE Stop: 05/02/17 12:59 Last Admin: 03/10/17 12:30 Dose: 1 tab [place] Oil/[place] Balsam/Trypsin (Venelex) 1 appl TP DAILY JACKIE Stop: 05/04/17 08:59 Last Admin: 03/10/17 09:32 Dose: 1 appl Docusate Sodium (Colace) 100 mg PO BID JACKIE Stop: 05/02/17 16:59 Last Admin: 03/10/17 09:30 Dose: 100 mg Donepezil HCl (Aricept) 10 mg GT HS JACKIE Stop: 05/02/17 20:59 Last Admin: 03/09/17 20:57 Dose: 10 mg Ferrous Sulfate (Iron) 325 mg PO BID JACKIE Stop: 05/03/17 16:59 Last Admin: 03/10/17 09:31 Dose: 325 mg Heparin Sodium (Porcine) (Heparin) 5,000 units SUBQ Q12HR JACKIE Stop: 05/02/17 20:59 Last Admin: 03/10/17 09:31 Dose: 5,000 units Levofloxacin (Levaquin Pb) 500 mg in 100 mls @ 100 mls/hr IV Q24H [facility]ACK[facility] Stop: 05/08/17 04:59 Last Admin: 03/10/17 04:45 Dose: 100 mls/hr Vancomycin HCl 0.75 gm/ (Dextrose) 250 mls @ 165 mls/hr IV Q24H [facility]ACK[facility] Stop: 05/06/17 08:59 Last Admin: 03/10/17 09:30 Dose: 165 mls/hr Sodium Chloride (Nacl 0.45%) 1,000 mls @ 50 mls/hr IV .Q20H JACKIE Stop: 05/08/17 06:44 Last Infusion: 03/09/17 19:11 Dose: 50 mls/hr Insulin Aspart (Novolog Insulin Sliding Scale) 0 units SUBQ ACHS [facility]ACKIE PRN Reason: Protocol Stop: 05/03/17 11:29 Last Admin: 03/10/17 12:30 Dose: 2 units Insulin Detemir (Levemir Insulin) 25 units SUBQ HS [facility] PRN Reason: Protocol Stop: 05/02/17 20:59 Last Admin: 03/09/17 21:08 Dose: 25 units Insulin Detemir (Levemir Insulin) 5 units SUBQ QAM [facility] PRN Reason: Protocol Stop: 05/04/17 08:59 Last Admin: 03/10/17 09:32 Dose: 5 units Lactobacillus Rhamnosus (Culturelle 15b) 1 each PO DAILY [facility] Stop: 05/05/17 08:59 Last Admin: 03/10/17 09:31 Dose: 1 each Levetiracetam (Keppra) 500 mg PO Q8HR [facility] Stop: 05/02/17 12:59 Last Admin: 03/10/17 12:30 Dose: 500 mg Memantine (Namenda) 10 mg GT BID [facility] Stop: 05/02/17 16:59 Last Admin: 03/10/17 09:31 Dose: 10 mg Miscellaneous (Vancomycin Iv Per Pharmacy) 1 ea PRN PRN PRN Reason: PROTOCOL Stop: 05/03/17 08:30 Miscellaneous (Probiotic Screen) 1 ea PRN PRN PRN Reason: PROTOCOL Stop: 05/04/17 16:59 Morphine Sulfate (Morphine) 1 mg IVP Q4HR PRN PRN Reason: Pain (Moderate) Stop: 05/06/17 22:09 Last Admin: 03/10/17 05:06 Dose: 1 mg Pantoprazole Sodium (Protonix) 40 mg IVP DAILY [facility] Stop: 05/04/17 09:59 Last Admin: 03/10/17 09:31 Dose: 40 mg Risperidone (Risperdal) 0.5 mg PO BID [facility] Stop: 05/02/17 16:59 Last Admin: 03/10/17 09:31 Dose: 0.5 mg General: Alert, No acute distress HEENT: Atraumatic, PERRLA, EOMI Neck: Supple, JVD Cardiovascular: Regular rate, Normal S1, Normal S2 Lungs: Clear to auscultation Abdomen: Bowel sounds, Soft Extremities: Clubbing Neurological: Normal gait, Normal speech - Procedures Procedures: Procedures Procedure Code Date CHANGE GASTROSTOMY TUBE 00215 06/25/12 INJECT/INFUSE NEC 99.29 09/11/07 INSERT PICC CATH 82934 12/19/11 INSERT TUNNELED CV CATH 29998 07/08/07 OTHER ENDOSCOPY OF SM INTEST 45.13 05/05/10 PLACE NEEDLE IN VEIN 86716 07/08/07 REPLACE G/C TUBE PERC 31195 10/19/11 REPLACE GASTROSTOMY TUBE 97.02 06/25/12 TRANSABDOM ENDOSC OF SM INTES 45.11 09/11/07 VENOUS CATHETERIZATION NEC 38.93 12/19/11 VENOUS PUNCTURE NEC 38.99 07/08/07 Assessment/Plan - Assessment Assessment: sepsis vs urosepsis hypernatremia elevated BNP acute on chronic anemia r/o GIB diabetes mellitus type 2 schizophrenia CVA w/ right sided hemiplegia h/o UTI s/p colostomy parkinson's disease hypothyroidism vascular dementia dysphagia CHF CAD peripheral vascular disease 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 UTI +Aerococcus S/p transfuse 1pRBCs ... repeat cbc tomorrow AM. - Plan Plan: General Surgery consult -- Dr. Bates. Will need surgical procedure for possible BKA. ID consult -- Dr. Regan Garcia Cardiology consult -- Dr. Garcia GI Consult -- Dr. Boone repeat CBC, CMP continue IV anitbiotics .. IV Zosyn, IV Vancomycin Blood culture pending, Urine Cultures pending LTAC evaluation and treatment. Nutritional Asmnt/Malnutr-PDOC - Dietary Evaluation Malnutrition Findings (Please click <Entered> for more info): Nutritional Asmnt/Malnutrition Start: 03/04/17 18: 06 Text: Status: Complete Freq: Document 03/04/17 18:06 REJI (Rec[facility] 03/04/17 18:[email or web address] Nutritional Asmnt/Malnutrition Patient General Information Nutritional Screening High Risk Consult Diagnosis urosepsis, dehydration Pertinent Medical Hx/Surgical Hx DM, schizophrenia, CVA, chronic anemia, dysphagia, vascular dementia, s/p colostomy, parkinson, CHF, CAD , UTI Subjective Information Consult received for florence 10 . Pt seen resting in bed at time of visit. Verified TF runnign at 55ml/hr at this time. Current Diet Order/ Nutrition Support Diabetisource 55ml/hr x 20hr Pertinent Medications D5w, colace, Iron, novolog, levemir, levaquin, piperacillin, protinix, vancomycin Pertinent Labs 03/04 Na 159, K 3.9, Cl 123, BUN 59, CR 1.1, Glucose 296, POC 245-363, Ca 9.4 03/03 A1c 10.2 Nutritional Hx/Data Height 1.63 m Height (Calculated Centimeters) 162.6 Current Weight (lbs) 68.039 kg Weight (Calculated Kilograms) 68.0 Weight (Calculated Grams) 93747.9 [place] Body Weight 120 % [place] Body Weight 125 Body Mass Index (BMI) 25.7 Weight Status Overweight GI Symptoms GI Symptoms None Last BM 03/03 x 3 Difficult in: None Skin Integrity/Comment: decubitus ulceration to sacrum Estimated Nutritional Goals BEE in Kcals: Adj wt of IBW Calories/Kcals/Kg 23-27 based on adj wt 58kg Kcals Calculated 0952-9833 considering bedbound Protein: Adj wt of IBW Protein g/k-1.2 Protein Calculated 58-70 Fluid: ml 1334-1566ml (1ml/kcal) Nutritional Problem 1. Problem Problem altered nutrition related lab values Etiology imbalanced electrolytes/fluid, hx of DM Signs/Symptoms: Na 159, Cl 123, BUN 59, Glucose 296, POC 245-363 Malnutrition Alert Protein-Calorie Malnutrition N/A Is there a minimum of two criteria No selected? Query Text:Check all the applicable criteria. A minimum of two criteria are recommended for diagnosis of either severe or non-severe malnutrition. Intervention/Recommendation Comments 1. Continue with current TF regimen. It provides 1320kcal, 66g protein, meeting 100% of nutritional needs 2. Monitor TF rate, tolerance, wt weekly, skin integrity and labs 3. F/U as moderate risk in 3-5 days, 03/07-03/09 Expected Outcomes/Goals Expected Outcomes/Goals 1. Pt to meet at least 75% of nutritional needs via nutrition support with tolerance 2. Wt stability, skin to remain intact, labs to approach WNL.
[2017-03-10 15:10] LABS: % BASOPHILS 0.3 % (0.0-2.0); % LYMPHOCYTES 12.7 % (20.0-50.0); % MONOCYTES 9.9 % (2.0-10.0); % NEUTROPHILS 76.1 % (40.0-80.0); EOSINOPHILE ABSOLUTE 0.1 Th/cmm (0.1-0.4); HEMATOCRIT 22.4 % (41.0-60); LYMPHOCYTE ABSOLUTE 1.2 Th/cmm (1.5-3.0); MEAN CELL VOLUME 89.8 fl (81-100); MEAN CORPUSCULAR HGB CONC 32.3 pg (28.0-36.0); MEAN PLATELET VOLUME 8.9 fl; NEUTROPHILE ABSOLUTE 7.5 Th/cmm (1.8-8.0); PLATELET COUNT 197 Th/cmm (150-400); RED BLOOD COUNT 2.49 Mil/cmm (3.80-5.20); RED CELL DISTRIBUTION WIDTH 18.9 % (11.5-20.0); WHITE BLOOD COUNT 9.8 Th/cmm (4.8-10.8)
[2017-03-10 15:19] LABS: HEMOGLOBIN 7.2 gm/dL (12-16)
[2017-03-11] MEDS: Levofloxacin 500mg/100mL 500 MG/100 ML BAG IV SCH (04:18)
[2017-03-11] MEDS ORDERED: Dextrose 50% 50 mL Abboject IVP ONE (06:07)
[2017-03-11] MEDS: INSULIN ASPART SLIDING SCALE 100 UNITS/ML UNIT SUBQ SCH ×2 (06:35→12:28)
[2017-03-11 06:40] LABS: % BASOPHILS 0.2 % (0.0-2.0); % LYMPHOCYTES 10.8 % (20.0-50.0); % MONOCYTES 12.2 % (2.0-10.0); % NEUTROPHILS 75.8 % (40.0-80.0); EOSINOPHILE ABSOLUTE 0.1 Th/cmm (0.1-0.4); MEAN CELL VOLUME 88.3 fl (81-100); MEAN CORPUSCULAR HEMOGLOBIN 28.6 pg (27.0-31.0); MEAN CORPUSCULAR HGB CONC 32.4 pg (28.0-36.0); MEAN PLATELET VOLUME 9.5 fl; MONOCYTE ABSOLUTE 1.1 Th/cmm (0.3-1.0); NEUTROPHILE ABSOLUTE 7.2 Th/cmm (1.8-8.0); PLATELET COUNT 180 Th/cmm (150-400); RED CELL DISTRIBUTION WIDTH 16.4 % (11.5-20.0); WHITE BLOOD COUNT 9.4 Th/cmm (4.8-10.8)
[2017-03-11 06:46] LABS: HEMATOCRIT 31.8 % (41.0-60); HEMOGLOBIN 10.3 gm/dL (12-16)
--- NOTE | 2017-03-11 08:34 | General Progress Note ---
Subjective - Review of Systems Service Date: 03/11/17 Subjective: Patient is awake, alert, no acute distress. Patient recently underwent Arterial Doppler US and Bone Scan ... please see dictated report. S/p bilateral BKA and debridement of sacral decubitus ulcer. No acute distress. labs pending this AM. BS 290 this AM...will dc D5W and change to 1/2NS@50cc/hr Hb 7.4-->7.2 s/p blood transfusion of 3 unit PRBC's. hb now 10. Objective - Results Result Diagrams: 03/11/17 06:30 03/09/17 07:44 Recent Labs: Laboratory Last Values WBC 9.4 Th/cmm (4.8-10.8) 03/11/17 06:30 RBC 3.60 Mil/cmm (3.80-5.20) L 03/11/17 06:30 Hgb 10.3 gm/dL (12-16) L D 03/11/17 06:30 Hct 31.8 % (41.0-60) L D 03/11/17 06:30 MCV 88.3 fl (81-100) 03/11/17 06:30 MCH 28.6 pg (27.0-31.0) 03/11/17 06:30 MCHC Differential 32.4 pg (28.0-36.0) 03/11/17 06:30 RDW 16.4 % (11.5-20.0) 03/11/17 06:30 Plt Count 180 Th/cmm (150-400) 03/11/17 06:30 MPV 9.5 fl 03/11/17 06:30 Neutrophils % 75.8 % (40.0-80.0) 03/11/17 06:30 Band Neutrophils % 7 % (0-10) 03/09/17 13:50 Lymphocytes % 10.8 % (20.0-50.0) L 03/11/17 06:30 Monocytes % 12.2 % (2.0-10.0) H 03/11/17 06:30 Eosinophils % 1.0 % (0.0-5.0) 03/11/17 06:30 Basophils % 0.2 % (0.0-2.0) 03/11/17 06:30 Neutrophils (Manual) 67 % (40-80) 03/09/17 13:50 Lymphocytes 10 % (20-50) L 03/09/17 13:50 Monocytes 15 % (2-10) H 03/09/17 13:50 Eosinophils 1 % (0-5) 03/09/17 13:50 Nucleated RBCs 1.0 % (0-0) H 03/04/17 05:35 Platelet Estimate ADEQUATE (NORMAL) 03/09/17 13:50 Platelet Morphology NORMAL (NORMAL) 03/09/17 13:50 Anisocytosis 1+ 03/09/17 13:50 RBC Morph Micro Appear ABNORMAL (NORMAL) 03/09/17 13:50 PT 11.9 SECONDS (9.5-11.5) H 03/03/17 09:00 INR 1.13 (0.5-1.4) 03/03/17 09:00 PTT (Actin FS) 36.6 SECONDS (26.0-38.0) 03/03/17 09:00 Sodium 151 mEq/L (136-145) H 03/09/17 07:44 Potassium 3.5 mEq/L (3.5-5.1) 03/09/17 07:44 Chloride 115 mEq/L (98-107) H 03/09/17 07:44 Carbon Dioxide 29.2 mEq/L (21.0-31.0) 03/09/17 07:44 Anion Gap 10.3 (7.0-16.0) 03/09/17 07:44 BUN 28 mg/dL (7-25) H 03/09/17 07:44 Creatinine 1.4 mg/dL (0.6-1.2) H 03/09/17 07:44 Est GFR ( Amer) TNP 03/09/17 07:44 Est GFR (Non-Af Amer) TNP 03/09/17 07:44 BUN/Creatinine Ratio 20.0 03/09/17 07:44 Glucose 315 mg/dL (70-105) H 03/09/17 07:44 POC Glucose 187 MG/DL (70 - 105) H 03/11/17 07:00 Hemoglobin A1c % 10.2 % (4.0-6.0) H 03/03/17 09:00 Whole Bld Lactic Acid 2.20 mmol/L (0.60-1.99) H* 03/04/17 13:00 Calcium 8.5 mg/dL (8.6-10.3) L 03/09/17 07:44 Iron 33 ug/dL (27-139) 03/03/17 09:00 TIBC 170 ug/dL (250-450) L 03/03/17 09:00 Iron Saturation 19 % (15-55) 03/03/17 09:00 Unsaturated IBC 137 ug/dL (118-369) 03/03/17 09:00 Ferritin 1421 ng/mL (15-150) H 03/03/17 09:00 Total Bilirubin 0.3 mg/dL (0.3-1.0) 03/09/17 07:44 Direct Bilirubin 0.06 mg/dL (0.0-0.2) 03/03/17 09:00 AST 20 U/L (13-39) 03/09/17 07:44 ALT 3 U/L (7-52) L 03/09/17 07:44 Alkaline Phosphatase 87 U/L (34-104) 03/09/17 07:44 C-Reactive Protein 33.4 mg/dL (0.0-0.9) H 03/03/17 09:00 B-Natriuretic Peptide 4190.0 pg/mL (5.0-100.0) H 03/03/17 09:00 Total Protein 6.6 gm/dL (6.0-8.3) 03/09/17 07:44 Albumin 2.2 gm/dL (3.7-5.3) L 03/09/17 07:44 Globulin 4.4 gm/dL 03/09/17 07:44 Albumin/Globulin Ratio 0.5 (1.0-1.8) L 03/09/17 07:44 Triglycerides 134 mg/dL (<150) 03/03/17 09:00 Cholesterol 49 mg/dL (<200) 03/03/17 09:00 LDL Cholesterol Direct 9 mg/dL (75-193) L 03/03/17 09:00 HDL Cholesterol 17 mg/dL (23-92) L 03/03/17 09:00 TSH 4.04 uIU/ml (0.34-5.60) 03/03/17 09:00 Urine Source CATH 03/03/17 09:59 Urine Color YELLOW 03/03/17 09:59 Urine Clarity CLOUDY (CLEAR) H 03/03/17 09:59 Urine pH 6.0 (4.6 - 8.0) 03/03/17 09:59 Ur Specific [place] 1.010 (1.005-1.030) 03/03/17 09:59 Urine Protein 30 mg/dL (NEGATIVE) H 03/03/17 09:59 Urine Glucose (UA) 100 mg/dL (NEGATIVE) H 03/03/17 09:59 Urine Ketones NEGATIVE mg/dL (NEGATIVE) 03/03/17 09:59 Urine Blood LARGE (NEGATIVE) H 03/03/17 09:59 Urine Nitrate NEGATIVE (NEGATIVE) 03/03/17 09:59 Urine Bilirubin NEGATIVE (NEGATIVE) 03/03/17 09:59 Urine Urobilinogen 0.2 E.U./dL (0.2 - 1.0) 03/03/17 09:59 Ur Leukocyte Esterase LARGE (NEGATIVE) H 03/03/17 09:59 Urine RBC 5-10 /hpf (0-5) H 03/03/17 09:59 Urine WBC 10-25 /hpf (0-5) H 03/03/17 09:59 Ur Epithelial Cells MODERATE /lpf (FEW) 03/03/17 09:59 Urine Bacteria 3+ /hpf (NONE SEEN) H 03/03/17 09:59 Urine Yeast MODERATE /hpf (NONE SEEN) H 03/03/17 09:59 Stool Occult Blood NEGATIVE (NEGATIVE) 03/04/17 09:30 Vancomycin Trough 30.1 ug/mL (10-20) H 03/11/17 06:30 Blood Type B POSITIVE 03/10/17 16:23 Antibody Screen NEGATIVE 03/10/17 16:23 Crossmatch See Detail 03/10/17 16:23 - Physical Exam Vitals and I&O: Vital Signs Temp 97.7 F 03/11/17 04:00 Pulse 85 03/11/17 07:06 Resp 18 03/11/17 07:08 BP 104/46 03/11/17 04:00 Pulse Ox 99 03/11/17 07:06 Intake & Output 03/10/17 03/11/17 03/11/17 18:59 06:59 18:59 Intake Total 860 250 900 Output Total 810 1105 Balance 50 250 -205 Weight (lbs) 73.936 kg 73.936 kg Intake: Intake, IV Amount 250 Vancomycin HCl 0.75 gm In 250 Dextrose 5% 250 ml @ 165 mls/hr IV Q24H [facility] Rx#: [id number] Tube Feeding 660 300 Blood Product 500 Other 200 100 Output: Drainage 10 5 Left Thigh 5 1 Right Thigh 5 4 Urine 800 1100 Active Medications: Current Medications Carbidopa/Levodopa (Sinemet 25mg-100 Mg) 1 tab GT Q8HR JACKIE Stop: 05/02/17 12:59 Last Admin: 03/11/17 04:16 Dose: 1 tab [place] Oil/[place] Balsam/Trypsin (Venelex) 1 appl TP DAILY JACK[facility] Stop: 05/04/17 08:59 Last Admin: 03/10/17 09:32 Dose: 1 appl Docusate Sodium (Colace) 100 mg PO BID JACKIE Stop: 05/02/17 16:59 Last Admin: 03/10/17 18:12 Dose: 100 mg Donepezil HCl (Aricept) 10 mg GT HS JACKIE Stop: 05/02/17 20:59 Last Admin: 03/10/17 21:05 Dose: 10 mg Ferrous Sulfate (Iron) 325 mg PO BID JACKIE Stop: 05/03/17 16:59 Last Admin: 03/10/17 18:12 Dose: 325 mg Levofloxacin (Levaquin Pb) 500 mg in 100 mls @ 100 mls/hr IV Q24H [facility] Stop: 05/08/17 04:59 Last Admin: 03/11/17 04:18 Dose: 100 mls/hr Vancomycin HCl 0.75 gm/ (Dextrose) 250 mls @ 165 mls/hr IV Q24H [facility]ACK[facility] Stop: 05/06/17 08:59 Last Infusion: 03/10/17 19:59 Dose: Infused Sodium Chloride (Nacl 0.45%) 1,000 mls @ 50 mls/hr IV .Q20H JACK[facility] Stop: 05/08/17 06:44 Last Infusion: 03/09/17 19:11 Dose: 50 mls/hr Insulin Aspart (Novolog Insulin Sliding Scale) 0 units SUBQ ACHS JACKIE PRN Reason: Protocol Stop: 05/03/17 11:29 Last Admin: 03/11/17 06:35 Dose: Not Given Insulin Detemir (Levemir Insulin) 25 units SUBQ HS JACKIE PRN Reason: Protocol Stop: 05/02/17 20:59 Last Admin: 03/10/17 21:09 Dose: 25 units Insulin Detemir (Levemir Insulin) 5 units SUBQ QAM [facility] PRN Reason: Protocol Stop: 05/04/17 08:59 Last Admin: 03/10/17 09:32 Dose: 5 units Lactobacillus Rhamnosus (Culturelle 15b) 1 each PO DAILY [facility] Stop: 05/05/17 08:59 Last Admin: 03/10/17 09:31 Dose: 1 each Levetiracetam (Keppra) 500 mg PO Q8HR [facility] Stop: 05/02/17 12:59 Last Admin: 03/11/17 04:16 Dose: 500 mg Memantine (Namenda) 10 mg GT BID [facility] Stop: 05/02/17 16:59 Last Admin: 03/10/17 18:12 Dose: 10 mg Miscellaneous (Vancomycin Iv Per Pharmacy) 1 [facility] PRN PRN PRN Reason: PROTOCOL Stop: 05/03/17 08:30 Miscellaneous (Probiotic Screen) 1 [facility] PRN PRN PRN Reason: PROTOCOL Stop: 05/04/17 16:59 Morphine Sulfate (Morphine) 1 mg IVP Q4HR PRN PRN Reason: Pain (Moderate) Stop: 05/06/17 22:09 Last Admin: 03/10/17 05:06 Dose: 1 mg Pantoprazole Sodium (Protonix) 40 mg IVP DAILY [facility] Stop: 05/04/17 09:59 Last Admin: 03/10/17 09:31 Dose: 40 mg Risperidone (Risperdal) 0.5 mg PO BID [facility] Stop: 05/02/17 16:59 Last Admin: 03/10/17 18:12 Dose: 0.5 mg General: Alert, No acute distress HEENT: Atraumatic, PERRLA, EOMI Neck: Supple, JVD Cardiovascular: Regular rate, Normal S1, Normal S2 Lungs: Clear to auscultation Abdomen: Bowel sounds, Soft Extremities: Clubbing Neurological: Normal gait, Normal speech - Procedures Procedures: Procedures Procedure Code Date AMPUTATION OF LOWER LEG 15684 03/03/17 CHANGE GASTROSTOMY TUBE 78603 06/25/12 REEMA SUBQ TISSUE 20 SQ CM/< 59017 03/03/17 DETACHMENT AT LEFT LOWER LEG, MID, OPEN APPROACH [id number] 03/03/17 DETACHMENT AT RIGHT LOWER LEG, MID, OPEN APPROACH [id number] 03/03/17 EXCISION OF BACK SUBCU/FASCIA, OPEN APPROACH [id number] 03/03/17 INJECT/INFUSE NEC 99.29 09/11/07 INSERT PICC CATH 52678 12/19/11 INSERT TUNNELED CV CATH 26474 07/08/07 OTHER ENDOSCOPY OF SM INTEST 45.13 05/05/10 PLACE NEEDLE IN VEIN 38127 07/08/07 REPLACE G/C TUBE PERC 93046 10/19/11 REPLACE GASTROSTOMY TUBE 97.02 06/25/12 TRANSABDOM ENDOSC OF SM INTES 45.11 09/11/07 VENOUS CATHETERIZATION NEC 38.93 12/19/11 VENOUS PUNCTURE NEC 38.99 07/08/07 Assessment/Plan - Assessment Assessment: sepsis vs urosepsis hypernatremia elevated BNP acute on chronic anemia r/o GIB diabetes mellitus type 2 schizophrenia CVA w/ right sided hemiplegia h/o UTI s/p colostomy parkinson's disease hypothyroidism vascular dementia dysphagia CHF CAD peripheral vascular disease 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 UTI +Aerococcus S/p transfuse 1pRBCs ... repeat cbc tomorrow AM. - Plan Plan: General Surgery consult -- Dr. Bates. Will need surgical procedure for possible BKA. ID consult -- Dr. Regan Garcia Cardiology consult -- Dr. Garcia GI Consult -- Dr. Boone repeat CBC, CMP continue IV anitbiotics .. IV Zosyn, IV Vancomycin Blood culture pending, Urine Cultures pending LTAC evaluation and treatment. Nutritional Asmnt/Malnutr-PDOC - Dietary Evaluation Malnutrition Findings (Please click <Entered> for more info): Nutritional Asmnt/Malnutrition Start: 03/04/17 18: 06 Text: Status: Complete Freq: Document 03/04/17 18:06 MIGUELITO (Rec: 03/04/17 18:19 LCBERE [email or web address]) Nutritional Asmnt/Malnutrition Patient General Information Nutritional Screening High Risk Consult Diagnosis urosepsis, dehydration Pertinent Medical Hx/Surgical Hx DM, schizophrenia, CVA, chronic anemia, dysphagia, vascular dementia, s/p colostomy, parkinson, CHF, CAD , UTI Subjective Information Consult received for florence 10 . Pt seen resting in bed at time of visit. Verified TF runnign at 55ml/hr at this time. Current Diet Order/ Nutrition Support Diabetisource 55ml/hr x 20hr Pertinent Medications D5w, colace, Iron, novolog, levemir, levaquin, piperacillin, protinix, vancomycin Pertinent Labs 03/04 Na 159, K 3.9, Cl 123, BUN 59, CR 1.1, Glucose 296, POC 245-363, Ca 9.4 03/03 A1c 10.2 Nutritional Hx/Data Height 1.63 m Height (Calculated Centimeters) 162.6 Current Weight (lbs) 68.039 kg Weight (Calculated Kilograms) 68.0 Weight (Calculated Grams) 65999.9 [place] Body Weight 120 % [place] Body Weight 125 Body Mass Index (BMI) 25.7 Weight Status Overweight GI Symptoms GI Symptoms None Last BM 03/03 x 3 Difficult in: None Skin Integrity/Comment: decubitus ulceration to sacrum Estimated Nutritional Goals BEE in Kcals: Adj wt of IBW Calories/Kcals/Kg - based on adj wt 58kg Kcals Calculated 4641-1815 considering bedbound Protein: Adj wt of IBW Protein g/k-1.2 Protein Calculated 58-70 Fluid: ml 1334-1566ml (1ml/kcal) Nutritional Problem 1. Problem Problem altered nutrition related lab values Etiology imbalanced electrolytes/fluid, hx of DM Signs/Symptoms: Na 159, Cl 123, BUN 59, Glucose 296, POC 245-363 Malnutrition Alert Protein-Calorie Malnutrition N/A Is there a minimum of two criteria No selected? Query Text:Check all the applicable criteria. A minimum of two criteria are recommended for diagnosis of either severe or non-severe malnutrition. Intervention/Recommendation Comments 1. Continue with current TF regimen. It provides 1320kcal, 66g protein, meeting 100% of nutritional needs 2. Monitor TF rate, tolerance, wt weekly, skin integrity and labs 3. F/U as moderate risk in 3-5 days, 03/07-03/09 Expected Outcomes/Goals Expected Outcomes/Goals 1. Pt to meet at least 75% of nutritional needs via nutrition support with tolerance 2. Wt stability, skin to remain intact, labs to approach WNL.
--- NOTE | 2017-03-11 09:36 | GI Progress Note ---
Subjective - Review of Systems Service Date: 03/11/17 Subjective: Continues to have liquid green stool in ostomy. underwent b/l BKA on 03/07 now with JOHANA drains Objective - Results Result Diagrams: 03/11/17 06:30 03/09/17 07:44 Recent Labs: Laboratory Last Values WBC 9.4 Th/cmm (4.8-10.8) 03/11/17 06:30 RBC 3.60 Mil/cmm (3.80-5.20) L 03/11/17 06:30 Hgb 10.3 gm/dL (12-16) L D 03/11/17 06:30 Hct 31.8 % (41.0-60) L D 03/11/17 06:30 MCV 88.3 fl (81-100) 03/11/17 06:30 MCH 28.6 pg (27.0-31.0) 03/11/17 06:30 MCHC Differential 32.4 pg (28.0-36.0) 03/11/17 06:30 RDW 16.4 % (11.5-20.0) 03/11/17 06:30 Plt Count 180 Th/cmm (150-400) 03/11/17 06:30 MPV 9.5 fl 03/11/17 06:30 Neutrophils % 75.8 % (40.0-80.0) 03/11/17 06:30 Band Neutrophils % 7 % (0-10) 03/09/17 13:50 Lymphocytes % 10.8 % (20.0-50.0) L 03/11/17 06:30 Monocytes % 12.2 % (2.0-10.0) H 03/11/17 06:30 Eosinophils % 1.0 % (0.0-5.0) 03/11/17 06:30 Basophils % 0.2 % (0.0-2.0) 03/11/17 06:30 Neutrophils (Manual) 67 % (40-80) 03/09/17 13:50 Lymphocytes 10 % (20-50) L 03/09/17 13:50 Monocytes 15 % (2-10) H 03/09/17 13:50 Eosinophils 1 % (0-5) 03/09/17 13:50 Nucleated RBCs 1.0 % (0-0) H 03/04/17 05:35 Platelet Estimate ADEQUATE (NORMAL) 03/09/17 13:50 Platelet Morphology NORMAL (NORMAL) 03/09/17 13:50 Anisocytosis 1+ 03/09/17 13:50 RBC Morph Micro Appear ABNORMAL (NORMAL) 03/09/17 13:50 PT 11.9 SECONDS (9.5-11.5) H 03/03/17 09:00 INR 1.13 (0.5-1.4) 03/03/17 09:00 PTT (Actin FS) 36.6 SECONDS (26.0-38.0) 03/03/17 09:00 Sodium 151 mEq/L (136-145) H 03/09/17 07:44 Potassium 3.5 mEq/L (3.5-5.1) 03/09/17 07:44 Chloride 115 mEq/L (98-107) H 03/09/17 07:44 Carbon Dioxide 29.2 mEq/L (21.0-31.0) 03/09/17 07:44 Anion Gap 10.3 (7.0-16.0) 03/09/17 07:44 BUN 28 mg/dL (7-25) H 03/09/17 07:44 Creatinine 1.4 mg/dL (0.6-1.2) H 03/09/17 07:44 Est GFR ( Amer) TNP 03/09/17 07:44 Est GFR (Non-Af Amer) TNP 03/09/17 07:44 BUN/Creatinine Ratio 20.0 03/09/17 07:44 Glucose 315 mg/dL (70-105) H 03/09/17 07:44 POC Glucose 187 MG/DL (70 - 105) H 03/11/17 07:00 Hemoglobin A1c % 10.2 % (4.0-6.0) H 03/03/17 09:00 Whole Bld Lactic Acid 2.20 mmol/L (0.60-1.99) H* 03/04/17 13:00 Calcium 8.5 mg/dL (8.6-10.3) L 03/09/17 07:44 Iron 33 ug/dL (27-139) 03/03/17 09:00 TIBC 170 ug/dL (250-450) L 03/03/17 09:00 Iron Saturation 19 % (15-55) 03/03/17 09:00 Unsaturated IBC 137 ug/dL (118-369) 03/03/17 09:00 Ferritin 1421 ng/mL (15-150) H 03/03/17 09:00 Total Bilirubin 0.3 mg/dL (0.3-1.0) 03/09/17 07:44 Direct Bilirubin 0.06 mg/dL (0.0-0.2) 03/03/17 09:00 AST 20 U/L (13-39) 03/09/17 07:44 ALT 3 U/L (7-52) L 03/09/17 07:44 Alkaline Phosphatase 87 U/L (34-104) 03/09/17 07:44 C-Reactive Protein 33.4 mg/dL (0.0-0.9) H 03/03/17 09:00 B-Natriuretic Peptide 4190.0 pg/mL (5.0-100.0) H 03/03/17 09:00 Total Protein 6.6 gm/dL (6.0-8.3) 03/09/17 07:44 Albumin 2.2 gm/dL (3.7-5.3) L 03/09/17 07:44 Globulin 4.4 gm/dL 03/09/17 07:44 Albumin/Globulin Ratio 0.5 (1.0-1.8) L 03/09/17 07:44 Triglycerides 134 mg/dL (<150) 03/03/17 09:00 Cholesterol 49 mg/dL (<200) 03/03/17 09:00 LDL Cholesterol Direct 9 mg/dL (75-193) L 03/03/17 09:00 HDL Cholesterol 17 mg/dL (23-92) L 03/03/17 09:00 TSH 4.04 uIU/ml (0.34-5.60) 03/03/17 09:00 Urine Source CATH 03/03/17 09:59 Urine Color YELLOW 03/03/17 09:59 Urine Clarity CLOUDY (CLEAR) H 03/03/17 09:59 Urine pH 6.0 (4.6 - 8.0) 03/03/17 09:59 Ur Specific [place] 1.010 (1.005-1.030) 03/03/17 09:59 Urine Protein 30 mg/dL (NEGATIVE) H 03/03/17 09:59 Urine Glucose (UA) 100 mg/dL (NEGATIVE) H 03/03/17 09:59 Urine Ketones NEGATIVE mg/dL (NEGATIVE) 03/03/17 09:59 Urine Blood LARGE (NEGATIVE) H 03/03/17 09:59 Urine Nitrate NEGATIVE (NEGATIVE) 03/03/17 09:59 Urine Bilirubin NEGATIVE (NEGATIVE) 03/03/17 09:59 Urine Urobilinogen 0.2 E.U./dL (0.2 - 1.0) 03/03/17 09:59 Ur Leukocyte Esterase LARGE (NEGATIVE) H 03/03/17 09:59 Urine RBC 5-10 /hpf (0-5) H 03/03/17 09:59 Urine WBC 10-25 /hpf (0-5) H 03/03/17 09:59 Ur Epithelial Cells MODERATE /lpf (FEW) 03/03/17 09:59 Urine Bacteria 3+ /hpf (NONE SEEN) H 03/03/17 09:59 Urine Yeast MODERATE /hpf (NONE SEEN) H 03/03/17 09:59 Stool Occult Blood NEGATIVE (NEGATIVE) 03/04/17 09:30 Vancomycin Trough 30.1 ug/mL (10-20) H 03/11/17 06:30 Blood Type B POSITIVE 03/10/17 16:23 Antibody Screen NEGATIVE 03/10/17 16:23 Crossmatch See Detail 03/10/17 16:23 - Physical Exam Vitals and I&O: Vital Signs Temp 98.7 F 03/11/17 08:00 Pulse 86 03/11/17 08:00 Resp 18 03/11/17 08:00 BP 114/51 03/11/17 08:00 Pulse Ox 100 03/11/17 08:00 Intake & Output 03/10/17 03/11/17 03/11/17 18:59 06:59 18:59 Intake Total 860 250 900 Output Total 810 1105 Balance 50 250 -205 Weight (lbs) 73.936 kg 73.936 kg Intake: Intake, IV Amount 250 Vancomycin HCl 0.75 gm In 250 Dextrose 5% 250 ml @ 165 mls/hr IV Q24H [facility] Rx#: [id number] Tube Feeding 660 300 Blood Product 500 Other 200 100 Output: Drainage 10 5 Left Thigh 5 1 Right Thigh 5 4 Urine 800 1100 Active Medications: Current Medications Carbidopa/Levodopa (Sinemet 25mg-100 Mg) 1 tab GT Q8HR JACKIE Stop: 05/02/17 12:59 Last Admin: 03/11/17 04:16 Dose: 1 tab [place] Oil/[place]i Balsam/Trypsin (Venelex) 1 appl TP DAILY JACKIE Stop: 05/04/17 08:59 Last Admin: 03/10/17 09:32 Dose: 1 appl Docusate Sodium (Colace) 100 mg PO BID JACKIE Stop: 05/02/17 16:59 Last Admin: 03/10/17 18:12 Dose: 100 mg Donepezil HCl (Aricept) 10 mg GT HS JACKIE Stop: 05/02/17 20:59 Last Admin: 03/10/17 21:05 Dose: 10 mg Ferrous Sulfate (Iron) 325 mg PO BID JACKIE Stop: 05/03/17 16:59 Last Admin: 03/10/17 18:12 Dose: 325 mg Levofloxacin (Levaquin Pb) 500 mg in 100 mls @ 100 mls/hr IV Q24H JACKIE Stop: 05/08/17 04:59 Last Admin: 03/11/17 04:18 Dose: 100 mls/hr Vancomycin HCl 0.75 gm/ (Dextrose) 250 mls @ 165 mls/hr IV Q24H JACKIE Stop: 05/06/17 08:59 Last Infusion: 03/10/17 19:59 Dose: Infused Sodium Chloride (Nacl 0.45%) 1,000 mls @ 50 mls/hr IV .Q20H JACKIE Stop: 05/08/17 06:44 Last Infusion: 03/09/17 19:11 Dose: 50 mls/hr Insulin Aspart (Novolog Insulin Sliding Scale) 0 units SUBQ ACHS JACKIE PRN Reason: Protocol Stop: 05/03/17 11:29 Last Admin: 03/11/17 06:35 Dose: Not Given Insulin Detemir (Levemir Insulin) 25 units SUBQ HS JACKIE PRN Reason: Protocol Stop: 05/02/17 20:59 Last Admin: 03/10/17 21:09 Dose: 25 units Insulin Detemir (Levemir Insulin) 5 units SUBQ QAM JACKIE PRN Reason: Protocol Stop: 05/04/17 08:59 Last Admin: 03/10/17 09:32 Dose: 5 units Lactobacillus Rhamnosus (Culturelle 15b) 1 each PO DAILY [facility] Stop: 05/05/17 08:59 Last Admin: 03/10/17 09:31 Dose: 1 each Levetiracetam (Keppra) 500 mg PO Q8HR JACKIE Stop: 05/02/17 12:59 Last Admin: 03/11/17 04:16 Dose: 500 mg Memantine (Namenda) 10 mg GT BID JACKIE Stop: 05/02/17 16:59 Last Admin: 03/10/17 18:12 Dose: 10 mg Miscellaneous (Vancomycin Iv Per Pharmacy) 1 ea PRN PRN PRN Reason: PROTOCOL Stop: 05/03/17 08:30 Miscellaneous (Probiotic Screen) 1 [facility] PRN PRN PRN Reason: PROTOCOL Stop: 05/04/17 16:59 Morphine Sulfate (Morphine) 1 mg IVP Q4HR PRN PRN Reason: Pain (Moderate) Stop: 05/06/17 22:09 Last Admin: 03/10/17 05:06 Dose: 1 mg Pantoprazole Sodium (Protonix) 40 mg IVP DAILY [facility] Stop: 05/04/17 09:59 Last Admin: 03/10/17 09:31 Dose: 40 mg Risperidone (Risperdal) 0.5 mg PO BID [facility] Stop: 05/02/17 16:59 Last Admin: 03/10/17 18:12 Dose: 0.5 mg General: Alert, No acute distress HEENT: Atraumatic, PERRLA, EOMI Neck: Supple, JVD Cardiovascular: Regular rate Lungs: Clear to auscultation Abdomen: Bowel sounds, Soft Extremities: Clubbing Neurological: Normal gait, Normal speech - Procedures Procedures: Procedures Procedure Code Date AMPUTATION OF LOWER LEG 13295 03/03/17 CHANGE GASTROSTOMY TUBE 02423 06/25/12 REEMA SUBQ TISSUE 20 SQ CM/< 95152 03/03/17 DETACHMENT AT LEFT LOWER LEG, MID, OPEN APPROACH [id number] 03/03/17 DETACHMENT AT RIGHT LOWER LEG, MID, OPEN APPROACH [id number] 03/03/17 EXCISION OF BACK SUBCU/FASCIA, OPEN APPROACH [id number] 03/03/17 INJECT/INFUSE NEC 99.29 09/11/07 INSERT PICC CATH 92020 12/19/11 INSERT TUNNELED CV CATH 72205 07/08/07 OTHER ENDOSCOPY OF SM INTEST 45.13 05/05/10 PLACE NEEDLE IN VEIN 57883 07/08/07 REPLACE G/C TUBE PERC 50089 10/19/11 REPLACE GASTROSTOMY TUBE 97.02 06/25/12 TRANSABDOM ENDOSC OF SM INTES 45.11 09/11/07 VENOUS CATHETERIZATION NEC 38.93 12/19/11 VENOUS PUNCTURE NEC 38.99 07/08/07 Assessment/Plan - Assessment Assessment: # Schizophrenia # Dysphagia # Dementia # Previous sigmoid volvulus s/p colostomy # Bilateral feet ischemia, 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 Thus the utility of repeating EGD/colo now in the absence of overt bleeding would be low. Suspect chronic anemia is multifactorial, with a large component of post surgical related blood loss. Iron studies consistent with anemia of chronic disease. Plan: - cont G tube feeding - cycle hgb, transfuse to keep > 7 - post op as per Dr Bates - endoscopy not planned at this point unless there is overt bleeding from the ostomy (FOB will be positive in a pt with ostomy in most cases) GI to see as needed, please call with any further questions
[2017-03-11] MEDS: Multivitamin w/ Minerals Tab GT SCH (09:44)
[2017-03-11] MEDS: Insulin Detemir 100 units/mL 10mL Vial SUBQ SCH (09:45)
[2017-03-11] MEDS: Ferrous Sulfate 325 MG TAB PO SCH (09:45)
[2017-03-11] MEDS: Lactobacillus Rhamnosus GG 15 Billion CFU CAP.SPRINK PO SCH (09:45)
--- NOTE | 2017-03-11 11:05 | General Progress Note ---
Subjective - Review of Systems Service Date: 03/11/17 Events since last encounter: given 2 units PRBC yesterday redressed, JOHANA removed, rewrapped with [place] incision healing well Objective - Results Result Diagrams: 03/11/17 06:30 03/09/17 07:44 Recent Labs: Laboratory Last Values WBC 9.4 Th/cmm (4.8-10.8) 03/11/17 06:30 RBC 3.60 Mil/cmm (3.80-5.20) L 03/11/17 06:30 Hgb 10.3 gm/dL (12-16) L D 03/11/17 06:30 Hct 31.8 % (41.0-60) L D 03/11/17 06:30 MCV 88.3 fl (81-100) 03/11/17 06:30 MCH 28.6 pg (27.0-31.0) 03/11/17 06:30 MCHC Differential 32.4 pg (28.0-36.0) 03/11/17 06:30 RDW 16.4 % (11.5-20.0) 03/11/17 06:30 Plt Count 180 Th/cmm (150-400) 03/11/17 06:30 MPV 9.5 fl 03/11/17 06:30 Neutrophils % 75.8 % (40.0-80.0) 03/11/17 06:30 Band Neutrophils % 7 % (0-10) 03/09/17 13:50 Lymphocytes % 10.8 % (20.0-50.0) L 03/11/17 06:30 Monocytes % 12.2 % (2.0-10.0) H 03/11/17 06:30 Eosinophils % 1.0 % (0.0-5.0) 03/11/17 06:30 Basophils % 0.2 % (0.0-2.0) 03/11/17 06:30 Neutrophils (Manual) 67 % (40-80) 03/09/17 13:50 Lymphocytes 10 % (20-50) L 03/09/17 13:50 Monocytes 15 % (2-10) H 03/09/17 13:50 Eosinophils 1 % (0-5) 03/09/17 13:50 Nucleated RBCs 1.0 % (0-0) H 03/04/17 05:35 Platelet Estimate ADEQUATE (NORMAL) 03/09/17 13:50 Platelet Morphology NORMAL (NORMAL) 03/09/17 13:50 Anisocytosis 1+ 03/09/17 13:50 RBC Morph Micro Appear ABNORMAL (NORMAL) 03/09/17 13:50 PT 11.9 SECONDS (9.5-11.5) H 03/03/17 09:00 INR 1.13 (0.5-1.4) 03/03/17 09:00 PTT (Actin FS) 36.6 SECONDS (26.0-38.0) 03/03/17 09:00 Sodium 151 mEq/L (136-145) H 03/09/17 07:44 Potassium 3.5 mEq/L (3.5-5.1) 03/09/17 07:44 Chloride 115 mEq/L (98-107) H 03/09/17 07:44 Carbon Dioxide 29.2 mEq/L (21.0-31.0) 03/09/17 07:44 Anion Gap 10.3 (7.0-16.0) 03/09/17 07:44 BUN 28 mg/dL (7-25) H 03/09/17 07:44 Creatinine 1.4 mg/dL (0.6-1.2) H 03/09/17 07:44 Est GFR ( Amer) TNP 03/09/17 07:44 Est GFR (Non-Af Amer) TNP 03/09/17 07:44 BUN/Creatinine Ratio 20.0 03/09/17 07:44 Glucose 315 mg/dL (70-105) H 03/09/17 07:44 POC Glucose 140 MG/DL (70 - 105) H 03/11/17 09:43 Hemoglobin A1c % 10.2 % (4.0-6.0) H 03/03/17 09:00 Whole Bld Lactic Acid 2.20 mmol/L (0.60-1.99) H* 03/04/17 13:00 Calcium 8.5 mg/dL (8.6-10.3) L 03/09/17 07:44 Iron 33 ug/dL (27-139) 03/03/17 09:00 TIBC 170 ug/dL (250-450) L 03/03/17 09:00 Iron Saturation 19 % (15-55) 03/03/17 09:00 Unsaturated IBC 137 ug/dL (118-369) 03/03/17 09:00 Ferritin 1421 ng/mL (15-150) H 03/03/17 09:00 Total Bilirubin 0.3 mg/dL (0.3-1.0) 03/09/17 07:44 Direct Bilirubin 0.06 mg/dL (0.0-0.2) 03/03/17 09:00 AST 20 U/L (13-39) 03/09/17 07:44 ALT 3 U/L (7-52) L 03/09/17 07:44 Alkaline Phosphatase 87 U/L (34-104) 03/09/17 07:44 C-Reactive Protein 33.4 mg/dL (0.0-0.9) H 03/03/17 09:00 B-Natriuretic Peptide 4190.0 pg/mL (5.0-100.0) H 03/03/17 09:00 Total Protein 6.6 gm/dL (6.0-8.3) 03/09/17 07:44 Albumin 2.2 gm/dL (3.7-5.3) L 03/09/17 07:44 Globulin 4.4 gm/dL 03/09/17 07:44 Albumin/Globulin Ratio 0.5 (1.0-1.8) L 03/09/17 07:44 Triglycerides 134 mg/dL (<150) 03/03/17 09:00 Cholesterol 49 mg/dL (<200) 03/03/17 09:00 LDL Cholesterol Direct 9 mg/dL (75-193) L 03/03/17 09:00 HDL Cholesterol 17 mg/dL (23-92) L 03/03/17 09:00 TSH 4.04 uIU/ml (0.34-5.60) 03/03/17 09:00 Urine Source CATH 03/03/17 09:59 Urine Color YELLOW 03/03/17 09:59 Urine Clarity CLOUDY (CLEAR) H 03/03/17 09:59 Urine pH 6.0 (4.6 - 8.0) 03/03/17 09:59 Ur Specific [place] 1.010 (1.005-1.030) 03/03/17 09:59 Urine Protein 30 mg/dL (NEGATIVE) H 03/03/17 09:59 Urine Glucose (UA) 100 mg/dL (NEGATIVE) H 03/03/17 09:59 Urine Ketones NEGATIVE mg/dL (NEGATIVE) 03/03/17 09:59 Urine Blood LARGE (NEGATIVE) H 03/03/17 09:59 Urine Nitrate NEGATIVE (NEGATIVE) 03/03/17 09:59 Urine Bilirubin NEGATIVE (NEGATIVE) 03/03/17 09:59 Urine Urobilinogen 0.2 E.U./dL (0.2 - 1.0) 03/03/17 09:59 Ur Leukocyte Esterase LARGE (NEGATIVE) H 03/03/17 09:59 Urine RBC 5-10 /hpf (0-5) H 03/03/17 09:59 Urine WBC 10-25 /hpf (0-5) H 03/03/17 09:59 Ur Epithelial Cells MODERATE /lpf (FEW) 03/03/17 09:59 Urine Bacteria 3+ /hpf (NONE SEEN) H 03/03/17 09:59 Urine Yeast MODERATE /hpf (NONE SEEN) H 03/03/17 09:59 Stool Occult Blood NEGATIVE (NEGATIVE) 03/04/17 09:30 Vancomycin Trough 30.1 ug/mL (10-20) H 03/11/17 06:30 Blood Type B POSITIVE 03/10/17 16:23 Antibody Screen NEGATIVE 03/10/17 16:23 Crossmatch See Detail 03/10/17 16:23 - Physical Exam Vitals and I&O: Vital Signs Temp 98.7 F 03/11/17 08:00 Pulse 86 03/11/17 08:00 Resp 18 03/11/17 08:00 BP 114/51 03/11/17 08:00 Pulse Ox 100 03/11/17 08:00 Intake & Output 03/10/17 03/11/17 03/11/17 18:59 06:59 18:59 Intake Total 860 250 900 Output Total 810 1105 Balance 50 250 -205 Weight (lbs) 73.936 kg 73.936 kg Intake: Intake, IV Amount 250 Vancomycin HCl 0.75 gm In 250 Dextrose 5% 250 ml @ 165 mls/hr IV Q24H [facility] Rx#: [id number] Tube Feeding 660 300 Blood Product 500 Other 200 100 Output: Drainage 10 5 Left Thigh 5 1 Right Thigh 5 4 Urine 800 1100 Active Medications: Current Medications Carbidopa/Levodopa (Sinemet 25mg-100 Mg) 1 tab GT Q8HR JACKIE Stop: 05/02/17 12:59 Last Admin: 03/11/17 04:16 Dose: 1 tab [place] Oil/[place] Balsam/Trypsin (Venelex) 1 appl TP DAILY JACKIE Stop: 05/04/17 08:59 Last Admin: 03/10/17 09:32 Dose: 1 appl Docusate Sodium (Colace) 100 mg PO BID JACKIE Stop: 05/02/17 16:59 Last Admin: 03/11/17 09:45 Dose: 100 mg Donepezil HCl (Aricept) 10 mg GT HS JACKIE Stop: 05/02/17 20:59 Last Admin: 03/10/17 21:05 Dose: 10 mg Ferrous Sulfate (Iron) 325 mg PO BID JACKIE Stop: 05/03/17 16:59 Last Admin: 03/11/17 09:45 Dose: 325 mg Levofloxacin (Levaquin Pb) 500 mg in 100 mls @ 100 mls/hr IV Q24H JACKIE Stop: 05/08/17 04:59 Last Admin: 03/11/17 04:18 Dose: 100 mls/hr Sodium Chloride (Nacl 0.45%) 1,000 mls @ 50 mls/hr IV .Q20H JACKIE Stop: 05/08/17 06:44 Last Infusion: 03/09/17 19:11 Dose: 50 mls/hr Insulin Aspart (Novolog Insulin Sliding Scale) 0 units SUBQ ACHS JACKIE PRN Reason: Protocol Stop: 05/03/17 11:29 Last Admin: 03/11/17 06:35 Dose: Not Given Insulin Detemir (Levemir Insulin) 25 units SUBQ HS JACKIE PRN Reason: Protocol Stop: 05/02/17 20:59 Last Admin: 03/10/17 21:09 Dose: 25 units Insulin Detemir (Levemir Insulin) 5 units SUBQ QAM JACKIE PRN Reason: Protocol Stop: 05/04/17 08:59 Last Admin: 03/11/17 09:45 Dose: 5 units Lactobacillus Rhamnosus (Culturelle 15b) 1 each PO DAILY JACKIE Stop: 05/05/17 08:59 Last Admin: 03/11/17 09:45 Dose: 1 each Levetiracetam (Keppra) 500 mg PO Q8HR [facility] Stop: 05/02/17 12:59 Last Admin: 03/11/17 04:16 Dose: 500 mg Memantine (Namenda) 10 mg GT BID [facility] Stop: 05/02/17 16:59 Last Admin: 03/11/17 09:45 Dose: 10 mg Miscellaneous (Vancomycin Iv Per Pharmacy) 1 ea PRN PRN PRN Reason: PROTOCOL Stop: 05/03/17 08:30 Miscellaneous (Probiotic Screen) 1 ea PRN PRN PRN Reason: PROTOCOL Stop: 05/04/17 16:59 Morphine Sulfate (Morphine) 1 mg IVP Q4HR PRN PRN Reason: Pain (Moderate) Stop: 05/06/17 22:09 Last Admin: 03/10/17 05:06 Dose: 1 mg Pantoprazole Sodium (Protonix) 40 mg IVP DAILY [facility] Stop: 05/04/17 09:59 Last Admin: 03/11/17 09:45 Dose: 40 mg Risperidone (Risperdal) 0.5 mg PO BID [facility] Stop: 05/02/17 16:59 Last Admin: 03/11/17 09:44 Dose: 0.5 mg General: Alert, No acute distress HEENT: Atraumatic, PERRLA, EOMI Neck: Supple, JVD Cardiovascular: Regular rate Lungs: Clear to auscultation Abdomen: Bowel sounds, Soft Extremities: Clubbing Neurological: Normal gait, Normal speech - Procedures Procedures: Procedures Procedure Code Date AMPUTATION OF LOWER LEG 54040 03/03/17 CHANGE GASTROSTOMY TUBE 68770 06/25/12 REEMA SUBQ TISSUE 20 SQ CM/< 13994 03/03/17 DETACHMENT AT LEFT LOWER LEG, MID, OPEN APPROACH [id number] 03/03/17 DETACHMENT AT RIGHT LOWER LEG, MID, OPEN APPROACH [id number] 03/03/17 EXCISION OF BACK SUBCU/FASCIA, OPEN APPROACH [id number] 03/03/17 INJECT/INFUSE NEC 99.29 09/11/07 INSERT PICC CATH 84170 12/19/11 INSERT TUNNELED CV CATH 35597 07/08/07 OTHER ENDOSCOPY OF SM INTEST 45.13 05/05/10 PLACE NEEDLE IN VEIN 50082 07/08/07 REPLACE G/C TUBE PERC 82917 09/08/12 REPLACE GASTROSTOMY TUBE 97.02 06/25/12 TRANSABDOM ENDOSC OF SM INTES 45.11 09/11/07 VENOUS CATHETERIZATION NEC 38.93 12/19/11 VENOUS PUNCTURE NEC 38.99 07/08/07 Nutritional Asmnt/Malnutr-PDOC - Dietary Evaluation Malnutrition Findings (Please click <Entered> for more info): Nutritional Asmnt/Malnutrition Start: 03/04/17 18: 06 Text: Status: Complete Freq: Document 03/04/17 18:06 REJI (Rec: 03/04/17 18:19 [id number] Nutritional Asmnt/Malnutrition Patient General Information Nutritional Screening High Risk Consult Diagnosis urosepsis, dehydration Pertinent Medical Hx/Surgical Hx DM, schizophrenia, CVA, chronic anemia, dysphagia, vascular dementia, s/p colostomy, parkinson, CHF, CAD , UTI Subjective Information Consult received for florence Hamilton . Pt seen resting in bed at time of visit. Verified TF runnign at 55ml/hr at this time. Current Diet Order/ Nutrition Support Diabetisource 55ml/hr x 20hr Pertinent Medications D5w, colace, Iron, novolog, levemir, levaquin, piperacillin, protinix, vancomycin Pertinent Labs 03/04 Na 159, K 3.9, Cl 123, BUN 59, CR 1.1, Glucose 296, POC 245-363, Ca 9.4 03/03 A1c 10.2 Nutritional Hx/Data Height 1.63 m Height (Calculated Centimeters) 162.6 Current Weight (lbs) 68.039 kg Weight (Calculated Kilograms) 68.0 Weight (Calculated Grams) 70070.9 [place] Body Weight 120 % [place] Body Weight 125 Body Mass Index (BMI) 25.7 Weight Status Overweight GI Symptoms GI Symptoms None Last BM 03/03 x 3 Difficult in: None Skin Integrity/Comment: decubitus ulceration to sacrum Estimated Nutritional Goals BEE in Kcals: Adj wt of IBW Calories/Kcals/Kg 23-27 based on adj wt 58kg Kcals Calculated 4555-1063 considering bedbound Protein: Adj wt of IBW Protein g/k-1.2 Protein Calculated 58-70 Fluid: ml 1334-1566ml (1ml/kcal) Nutritional Problem 1. Problem Problem altered nutrition related lab values Etiology imbalanced electrolytes/fluid, hx of DM Signs/Symptoms: Na 159, Cl 123, BUN 59, Glucose 296, POC 245-363 Malnutrition Alert Protein-Calorie Malnutrition N/A Is there a minimum of two criteria No selected? Query Text:Check all the applicable criteria. A minimum of two criteria are recommended for diagnosis of either severe or non-severe malnutrition. Intervention/Recommendation Comments 1. Continue with current TF regimen. It provides 1320kcal, 66g protein, meeting 100% of nutritional needs 2. Monitor TF rate, tolerance, wt weekly, skin integrity and labs 3. F/U as moderate risk in 3-5 days, 03/07-03/09 Expected Outcomes/Goals Expected Outcomes/Goals 1. Pt to meet at least 75% of nutritional needs via nutrition support with tolerance 2. Wt stability, skin to remain intact, labs to approach WNL.
[2017-03-11] MEDS: Venelex 60gm Tube TP SCH (12:35)
[2017-03-11] MEDS: Sodium Chloride 0.45% 1,000 ML IV SCH (14:02)
--- NOTE | 2017-03-12 16:02 | Pathology Report ---
[id number] Collection Date: 03/07/2017 Surgeon: Dr. Bre Bates Specimen Description: Bilateral [id number] amputation Gross Description: Received in the unfixed state are right and left eshjc-[id number]-[id number] amputation specimens consisting of the lower legs with both legs showing extensive brownish-black discoloration on the right and left foot. There are no areas of ulceration; however, both feet show a diffuse dusky degeneration of the skin. Sectioning shows degenerative changes with no blood appreciated in the subcutaneous vessels. Examination of the soft tissue at the transection margins shows intact skin and subcutaneous tissue with blood vessels that are filled with dark red blood. Sectioning of the arterial vessels shows area of calcification and arteriosclerotic narrowing. Both legs measure 35 cm from the transection margin to the heel, and each foot measures 22 cm from the heel to the big toe. [employer] sections are submitted in six cassettes labeled A1 to A3, and B1 to B3. Cassette A1 shows the left foot, cassette A2 shows the left leg soft tissue margin, cassette A3 shows the left lower leg arterial vessels. Cassette B1 shows the right foot, cassette B2 the right soft tissue margin, and cassette B3 the right arterial vessels. Microscopic Description: The histologic sections show right and left leg wivfa-zbl-gwzo amputation specimens with both feet showing degenerative ischemic changes to the skin and subcutaneous soft tissues. The skin and soft tissue at the margins are intact. The arterial vessels show areas of calcification and arteriosclerotic narrowing. Diagnosis: 1. Right and left lower leg baxys-gnc-vdxh amputation with both feet showing degenerative changes consistent with ischemia and gangrene. 2. The peripheral vessels show arteriosclerotic narrowing and calcification consistent with peripheral vascular disease. [facility]# [id number] [place]
--- NOTE | 2017-03-20 15:40 | Discharge Summary ---
DATE OF DISCHARGE: 03/11/2017 PRELIMINARY DIAGNOSES: 1. Peripheral vascular disease. 2. Gangrene of the bilateral lower extremities. 3. Sepsis. 4. Urosepsis. 5. Acute on chronic anemia. 6. Diabetes mellitus type 2. 7. Schizophrenia. 8. Cerebrovascular accident with right-sided hemiparesis. 9. History of urinary tract infection. 10. Status post colostomy. 11. Parkinson's disease. 12. Hypothyroidism. 13. Vascular dementia. 14. Dysphagia. 15. Congestive heart failure. 16. Coronary artery disease. DISCHARGE DIAGNOSES: 1. Peripheral vascular disease. 2. Gangrene of the bilateral lower extremities. 3. Sepsis. 4. Urosepsis. 5. Acute on chronic anemia. 6. Diabetes mellitus type 2. 7. Schizophrenia. 8. Cerebrovascular accident with right-sided hemiparesis. 9. History of urinary tract infection. 10. Status post colostomy. 11. Parkinson's disease. 12. Hypothyroidism. 13. Vascular dementia. 14. Dysphagia. 15. Congestive heart failure. 16. Coronary artery disease. BRIEF HISTORY OF PRESENT ILLNESS: This is an 87-year-old female who was transferred to [facility] ER for altered mental status and possible sepsis versus urosepsis. While in the ER, the patient was initially evaluated with lab work that revealed a white count of 10.2, hemoglobin of 6, hematocrit of 20.7, platelets 294,000. Sodium was slightly elevated at 158, potassium 4.3, BUN 73, creatinine 1.3. BNP was 4190. CRP was 33. UA revealed lymphocytes that were large, rbc's 5-10, wbc's 10-25. Initial chest x-ray showed no focal pulmonary parenchymal process. HOSPITAL COURSE: The patient was seen and evaluated by Cardiology. Please see dictated report. The patient also was seen by General Surgery for lower extremity gangrene and subsequently underwent surgery to bilateral below the knee amputation, please see dictated report. The patient also was seen by GI during her hospital stay for possible GI bleed. Her initial hemoglobin was 6.0 and 20.7, was given 2 units of packed red blood cells. Her hemoglobin had increased to 8.3 on 03/04/2016. Repeat H and H was done on the , hemoglobin then increased to 9.3 and had remained stable until after surgery. Hemoglobin had dropped to 7.4 during which time the patient was given 2 units of blood and hemoglobin had increased to 10.3 on 03/11/2017. The patient had been seen by ID and was initially on vancomycin for sepsis. Please see dictated report. The patient had no next of kin and was unable to provide consent for procedure during her hospital stay; however, given the nature of her illness and it was medically necessary for her to undergo surgery in order to prevent increased chance of morbidity. Therefore, 2 doctors were able to sign consent for medical necessity. The patient was subsequently transferred back to a skilled facility for further evaluation and treatment and continued IV antibiotics. JOB# [id number]
== END 2017-03-11 16:58 | disposition home or self-care (01) | DRG 853 ==
LOC: ER 08:30 → TELE 11:00 → MSI 03-05 08:49 → TELE 03-07 18:45
PROVIDERS: ADMIT Family Medicine; ATTEND Family Medicine
PROC: 30233N1 Transfusion of Nonautologous Red Blood Cells into Peripheral Vein, Percutaneous Approach (ICD-10-PCS; 2017-03-03)
PROC: 0Y6J0Z2 Detachment at Left Lower Leg, Mid, Open Approach (ICD-10-PCS; principal; 2017-03-07)
PROC: 0Y6H0Z2 Detachment at Right Lower Leg, Mid, Open Approach (ICD-10-PCS; 2017-03-07)
PROC: 0HB6XZZ Excision of Back Skin, External Approach (ICD-10-PCS; 2017-03-07)
DX: A41.9 Sepsis, unspecified organism (principal); E43 Unspecified severe protein-calorie malnutrition; I96 Gangrene, not elsewhere classified; L89.154 Pressure ulcer of sacral region, stage 4; R53.2 Functional quadriplegia; I69.351 Hemiplegia and hemiparesis following cerebral infarction affecting right dominant side; E11.22 Type 2 diabetes mellitus with diabetic chronic kidney disease; E11.52 Type 2 diabetes mellitus with diabetic peripheral angiopathy with gangrene; E11.65 Type 2 diabetes mellitus with hyperglycemia; K56.7 Ileus, unspecified; I50.30 Unspecified diastolic (congestive) heart failure; N39.0 Urinary tract infection, site not specified; I38 Endocarditis, valve unspecified; I13.0 Hypertensive heart and chronic kidney disease with heart failure and stage 1 through stage 4 chronic kidney disease, or unspecified chronic kidney disease; E87.1 Hypo-osmolality and hyponatremia; M86.8X8 Other osteomyelitis, other site; G20 Parkinson's disease; F20.9 Schizophrenia, unspecified; D64.9 Anemia, unspecified; F01.50 Vascular dementia, unspecified severity, without behavioral disturbance, psychotic disturbance, mood disturbance, and anxiety; R13.10 Dysphagia, unspecified; I25.10 Atherosclerotic heart disease of native coronary artery without angina pectoris; M81.0 Age-related osteoporosis without current pathological fracture; E03.9 Hypothyroidism, unspecified; M19.90 Unspecified osteoarthritis, unspecified site; N18.9 Chronic kidney disease, unspecified; E11.69 Type 2 diabetes mellitus with other specified complication; B96.89 Other specified bacterial agents as the cause of diseases classified elsewhere; Z68.28 Body mass index [BMI] 28.0-28.9, adult; Z74.01 Bed confinement status; Z93.3 Colostomy status; Z93.1 Gastrostomy status; Z79.4 Long term (current) use of insulin
CPT/HCPCS: 36415-UA; 71045-TC; 74000-TC; 74019-TC; 78315-TC; 80053-TC; 80061-TC; 80076-TC; 80202-TC; 81001-TC; 82270-TC; 82728-90; 82948-90; 83036-90; 83540-90; 83550-90; 83605; 83880-TC; 84443-TC; 85007-TC; 85025-TC; 85027-TC; 85610-TC; 86141-TC; 86850-TC; 86900-TC; 86901-TC; 86922-TC; 87086-90; 93005; 93925-TC; 94760; 96372; 96375; A4217; A9503; C9113; J1644; J1815; J1956; J2270; J2543; J2704; J3370; J7030; J7040; J7070; J7799; P9016; X6158; X6258; Z7610

== ENCOUNTER 2017-03-14 03:51 | Emergency (ER) | payer MEDICARE, MEDICAID ==
--- NOTE | 2017-03-14 04:31 | ED Physician Chart ---
ED Chief Complaint/HPI - Patient Information Date Seen:: 03/14/17 Time Seen:: 04:20 Chief Complaint:: G-tube replacement History of Present Illness:: Patient apparently pulled out her G-tube at the nursing home facility. She is here for G-tube replacement Allergies:: Allergies Allergy/AdvReac Type Severity Reaction Status Date / Time No Known Allergies Allergy Verified 03/14/17 04:04 Vitals:: Vital Signs - 8 hr 03/14/17 03/14/17 03:55 04:19 Temp 98.1 F 98.1 F HR 87 87 RR 20 24 BP 126/61 126/61 O2 Sat % 100 100 Review:: Transfer documents Reviewed ED Review of Systems - Review of Systems General/Constitutional: No fever, No chills Skin: No skin lesions Head: No headache Eyes: No loss of vision ENT: No earache Neck: No neck pain Cardio Vascular: Chest pain Pulmonary: No SOB GI: Other (see history and physical) Musculoskeletal: No bone or joint pain Psychiatric: Prior psych history, Anxiety ED Past Medical History - Past Medical History Past Medical History: Other (bilateral below-knee amputations; status post sepsis; anemia; diabetes; schizophrenia; Parkinson's disease; right-sided weakness secondary to CVA) Family History: Other (unavailable) Social History: Care Facility Surgical History: PEG/GTube, other (colostomy; bilateral BK amputations) Psychiatricy History: Schizophrenia Family Medical History - Family Member Mother History Unknown: Yes ED Physical Exam - Physical Examination Other Gen/Cons comments:: Chronically ill-appearing; nonverbal Head: Atraumatic Eyes: Lids, conjuctiva normal ENMT: External ears, nose nl Neck: No nuchal rigidity Respiratory: Clear to Auscultation Cardio Vascular: RRR GI: No tenderness/rebounding/guarding : No CVA tenderness Extremities: Normal digits & nails ED Labs/Radiology/EKG Results - Radiology Results Results: KUB shows G-tube to be in GI tract ED Assessment - Assessment General Assessment: 20 [place] G-tube inserted without difficulty ED Septic Shock - . Is Septic Shock (SBP<90, OR Lactate>4 mmol\L) present?: No - <6hrs of presentation: Vital Signs: Vital Signs - 8 hr 03/14/17 03/14/17 03:55 04:19 Temp 98.1 F 98.1 F HR 87 87 RR 20 24 BP 126/61 126/61 O2 Sat % 100 100 ED Reassessment (Disposition) - Reassessment Reassessment Condition:: Improved - Diagnosis Diagnosis:: G-tube replacement - Aftercare/Follow up Instructions Aftercare/Follow-Up Instructions:: Refer to Discharge Instructions - Patient Disposition Discharge/Transfer:: [facility] - SNF Condition at Disposition:: Stable, Improved
[2017-03-14] MEDS ORDERED: Diatrizoate Meglumine/Diatri 30 mL Sol ONE (04:57)
--- NOTE | 2017-03-14 08:14 | Diagnostic Imaging Report ---
Exam: KUB of the abdomen. HISTORY: G-tube placement. Findings: Portable examination of the abdomen 0 525 reviewed with injection of contrast material gastrostomy tube demonstrates normal opacification of the stomach. IMPRESSION: Gastrostomy tube in the stomach.
== END 2017-03-14 06:44 ==
LOC: ER 03:51
DX: Z43.1 Encounter for attention to gastrostomy (principal); Z93.1 Gastrostomy status
CPT/HCPCS: 74000-TC; 88305-90; Z7502; Z7610